=== PATIENT | male | born 1960 | race Hispanic/Latino ===

== ENCOUNTER 2017-11-20 15:46 | Inpatient (IN) | payer OTHER ==
[~2017-11-20] VITALS: Ht 170.2 cm; Wt 90.3 kg
[2017-11-20] MEDS ORDERED: ACETAMINOPHEN 325 MG TAB PO ONE (17:30)
[2017-11-20] MEDS ORDERED: SODIUM CHLORIDE 0.9% 1000ML 1,000 ML IV STA (17:34)
[2017-11-20 17:45] LABS: BASOPHILS # (AUTO) 0.1 (0.0-0.1); BASOPHILS % 0.8 % (0.0-1.0); EOSINOPHILS % 0.1 % (0.0-6.0); HEMATOCRIT 41.1 % (38.2-49.6); HEMOGLOBIN 14.8 g/dL (14.0-18.0); LYMPHOCYTES # (AUTO) 0.2 (1.0-3.2); LYMPHOCYTES % 1.5 % (18.0-39.1); MEAN CORPUSCULAR HEMOGLOBIN 33.3 pg (28-32); MEAN CORPUSCULAR VOLUME 92.4 fL (81-99); MONOCYTES # (AUTO) 1.2 (0.2-0.8); MONOCYTES % 7.8 % (4.4-11.3); NEUTROPHILS # (AUTO) 13.6 (2.1-6.9); NEUTROPHILS % 87.9 % (38.7-80.0); PLATELET COUNT 120 x10e3/uL (140-360); RED BLOOD COUNT 4.45 x10e6/uL (4.3-5.7)
[2017-11-20 17:57] LABS: ALANINE AMINOTRANSFERASE 52 IU/L (0-55); ALBUMIN 2.7 g/dL (3.5-5.0); ALBUMIN/GLOBULIN RATIO 0.5 (0.8-2.0); ALKALINE PHOSPHATASE 153 IU/L (40-150); ANION GAP 14.9 mmol/L (8-16); BLOOD UREA NITROGEN 10 mg/dL (7-26); BUN/CREATININE RATIO 14 (6-25); CALCIUM 8.8 mg/dL (8.4-10.2); CARBON DIOXIDE 22 mmol/L (22-29); CHLORIDE 95 mmol/L (98-107); EST GLOMERULAR FILTRATION RATE > 60 ML/MIN (60-); GLUCOSE 189 mg/dL (74-118); SODIUM 129 mmol/L (136-145)
[2017-11-20] MEDS ORDERED: PIPER-TAZ 3.375 GM 50 ML IV STA (17:59)
[2017-11-20] MEDS ORDERED: DIATRIZOATE MEGL/DIATRIZOA SOD 120 ML BTL PO ONE (18:03)
[2017-11-20 18:05] LABS: POTASSIUM 2.9 mmol/L (3.5-5.1)
[2017-11-20] MEDS ORDERED: POTASSIUM CHLORIDE 20 MEQ TAB CR PO STA (18:08)
[2017-11-20] MEDS ORDERED: KCL 20MEQ/.9 SOD CHL 1,000 ML IV ONE (18:30)
[2017-11-20 18:45] LABS: LYMPHOCYTES % (MANUAL) 4 % (19-48); METAMYELOCYTES % (MANUAL) 5 % (0-0); MONOCYTES % (MANUAL) 11 % (3.4-9.0); NEUTROPHILS % (MANUAL) 80 % (40-74); PLATELET ESTIMATE SLIGHTLY DECREASED; PLATELET MORPHOLOGY COMMENT FEW LARGE; RBC MORPHOLOGY COMMENT NORMAL
[2017-11-20] MEDS ORDERED: [UNRECOGNIZED DRUG - OTHER] OS (19:22)
[2017-11-20] MEDS ORDERED: METFORMIN HCL500 MG PO ×2 (19:29)
[2017-11-20] MEDS ORDERED: BENAZEPRIL HCL10 MG PO (19:29)
[2017-11-20] MEDS ORDERED: LOVASTATIN40 MG PO (19:29)
[2017-11-20] MEDS ORDERED: ESIDRIX25 MG PO (19:29)
[2017-11-20] MEDS ORDERED: OMEPRAZOLE40 MG PO (19:29)
[2017-11-20] MEDS ORDERED: GLIPIZIDE ER5 MG PO (19:29)
[2017-11-20] MEDS ORDERED: FERROUS SULFAT325 MG PO (19:29)
[2017-11-20] MEDS ORDERED: ASPIR 8181 MG PO (19:29)
--- NOTE | 2017-11-20 20:45 | Diagnostic Imaging Report ---
EXAM: CT Abdomen and Pelvis WITH contrast INDICATION: Lower abdominal pain and fever COMPARISON: None. TECHNIQUE: Abdomen and pelvis were scanned utilizing a multidetector helical scanner from the lung base to the pubic symphysis after administration of IV contrast. Coronal and sagittal reformations were obtained. Routine protocol was performed. Scan was performed when during portal venous phase. IV CONTRAST: 100 mL of Isovue-300 ORAL CONTRAST: Gastrografin RADIATION DOSE: Total DLP: 87.9 mGy*cm Estimated effective dose: (DLP x 0.015 x size factor) mSv COMPLICATIONS: None FINDINGS: LINES and TUBES: None. LOWER THORAX: Minimal atelectasis in the right lower lobe. Calcified granuloma in the right middle lobe. Coronary artery calcifications. HEPATOBILIARY: No focal hepatic lesions. No biliary ductal dilation. GALLBLADDER: Multiple 2 to 3 mm calcified gallstones. There is mild wall thickening near the gallbladder neck. No surrounding fluid collections. SPLEEN: No splenomegaly. PANCREAS: No focal masses or ductal dilatation. ADRENALS: No adrenal nodules KIDNEYS/URETERS: Kidneys enhance symmetrically. No hydronephrosis. No cystic or solid mass lesions. No stones. GI TRACT: There is mild wall thickening of the pylorus and first/second portion of the duodenum adjacent to the gallbladder, better seen on series 2, images 40-43. There is also diffuse wall thickening with adjacent fat stranding of the ascending colon and few loops of small bowel within the right upper quadrant. To a lesser extent, there is some wall thickening of the remaining colon. The terminal ileum is associated with nodular thickening. The appendix appears unremarkable though is not well visualized. No bowel dilatation. PELVIC ORGANS/BLADDER: Unremarkable. LYMPH NODES: No lymphadenopathy. VESSELS: Unremarkable. PERITONEUM / RETROPERITONEUM: No free air or fluid. Mild fat stranding within the gastrohepatic mesenteric fat. BONES: Mild multilevel degenerative changes of the lumbar spine. SOFT TISSUES: Small fat-containing bilateral inguinal hernias. IMPRESSION: CT findings suggestive of acute pancolitis, which may be inflammatory due to Crohn's disease or infectious. Cholelithiasis with mild inflammatory changes of the gallbladder wall adjacent to the colon may be reactive. No free air in the abdomen or pelvis. Signed by: Dr. Irish Herrera M.D. on 11/20/2017 8:41 PM
[2017-11-20] MEDS ORDERED: METRONIDAZOLE 500MG/NS 100ML 100 ML IV STA (21:45)
[2017-11-20] MEDS ORDERED: CIPROFLOXACIN 400 MG/D5W 200ML 200 ML IV ONE (22:00)
[2017-11-20] MEDS ORDERED: ONDANSETRON HCL INJ 2 MG/ML VIAL IV PRN (22:15)
[2017-11-20] MEDS ORDERED: MORPHINE SULFATE 2 MG/ML SYR IV PRN (22:15)
[2017-11-20] MEDS ORDERED: IOPAMIDOL 370 MG/ML 200 ML INFUS..BTL INJ ONE (22:34)
[2017-11-20] MEDS ORDERED: SODIUM CHLORIDE 0.9% 50ML 50 ML ONE (22:34)
[2017-11-20] MEDS: SODIUM CHLORIDE 0.9% 1000ML 1,000 ML IV SCH (23:47)
[2017-11-21] MEDS ORDERED: METRONIDAZOLE 500MG/NS 100ML IV SCH
[2017-11-21] MEDS ORDERED: DEXTROSE 50% SYRINGE 50 ML IV PRN (00:45)
[2017-11-21] MEDS: PIPER-TAZ 3.375 GM 50 ML IV SCH ×3 (06:00→22:00)
[2017-11-21] MEDS ORDERED: PIPER-TAZ 3.375 GM/50 ML BAG IV SCH (06:00)
[2017-11-21] MEDS: METRONIDAZOLE 500MG/NS 100ML 100 ML IV SCH ×4 (06:12→23:59)
[2017-11-21 06:44] LABS: BASOPHILS % 0.2 % (0.0-1.0); EOSINOPHILS % 0.2 % (0.0-6.0); HEMOGLOBIN 12.9 g/dL (14.0-18.0); LYMPHOCYTES # (AUTO) 0.7 (1.0-3.2); LYMPHOCYTES % 7.1 % (18.0-39.1); MEAN CORPUSCULAR HEMOGLOBIN 33.4 pg (28-32); MEAN CORPUSCULAR HGB CONC 34.9 g/dL (31-35); MEAN CORPUSCULAR VOLUME 95.9 fL (81-99); MONOCYTES # (AUTO) 0.8 (0.2-0.8); NEUTROPHILS # (AUTO) 8.3 (2.1-6.9); NEUTROPHILS % 83.4 % (38.7-80.0); PLATELET COUNT 107 x10e3/uL (140-360); RED BLOOD COUNT 3.86 x10e6/uL (4.3-5.7); RED CELL DISTRIBUTION WIDTH 14.5 % (11.7-14.4)
[2017-11-21 07:01] LABS: ALANINE AMINOTRANSFERASE 40 IU/L (0-55); ALBUMIN 2.2 g/dL (3.5-5.0); ALBUMIN/GLOBULIN RATIO 0.5 (0.8-2.0); ALKALINE PHOSPHATASE 104 IU/L (40-150); ANION GAP 12.2 mmol/L (8-16); BLOOD UREA NITROGEN 8 mg/dL (7-26); BUN/CREATININE RATIO 12 (6-25); CALCIUM 8.2 mg/dL (8.4-10.2); CARBON DIOXIDE 24 mmol/L (22-29); CHLORIDE 103 mmol/L (98-107); CREATININE, SERUM 0.69 mg/dL (0.72-1.25); EST GLOMERULAR FILTRATION RATE > 60 ML/MIN (60-); GLUCOSE 164 mg/dL (74-118); POTASSIUM 3.2 mmol/L (3.5-5.1); SODIUM 136 mmol/L (136-145)
[2017-11-21] MEDS: INSULIN REGULAR, HUMAN 100 UNIT/1 ML 3ML VIAL SQ SCH ×4 (07:39→21:00)
[2017-11-21] MEDS: SODIUM CHLORIDE 0.9% 1000ML 1,000 ML IV SCH ×3 (07:39→22:10)
--- NOTE | 2017-11-21 08:32 | History and Physical ---
PRIMARY CARE PHYSICIAN: None CHIEF COMPLAINT: Lower abdominal pain. HISTORY OF PRESENT ILLNESS: This is a 56-year-old man with a history of diabetes mellitus, developing lower abdominal pain, which he has also experienced years ago, but now his symptoms persisted. He initially thought it was food poisoning, but did not get better. Also, had nausea and vomiting, but no diarrhea. Has been anorexic for the past 2 days and not eating. Unable to eat due to symptoms. Therefore, he came to the hospital. His temperature at home was as high as 102 Fahrenheit. Here, he was found to be in severe sepsis and found to have acute pancolitis. He is admitted for further evaluation and management. He has had 2 polyps removed from the rectum in the past 2 years. PAST MEDICAL HISTORY: Diabetes mellitus, type 2, hypertension and GERD. PAST SURGICAL HISTORY: Colonic polyps and gastric polyp removal, umbilical hernia repair. ALLERGIES: PER ELECTRONIC MEDICAL RECORDS. FAMILY HISTORY/SOCIAL HISTORY: Patient is . He has 2 children. Occasional alcohol. No cigarettes. MEDICATIONS: Per electronic medical records. REVIEW OF SYSTEMS: Denies any dizziness or chest pain. PHYSICAL EXAMINATION VITAL SIGNS: Have been reviewed. GENERAL: A tired-appearing man resting in bed. HEENT: Anicteric. Pupils respond to light. No oral lesions. CARDIOVASCULAR: Normal S1 and S2. LUNGS: Moderate breath sounds. ABDOMEN: Soft and nondistended. He has tenderness in the lower quadrants bilaterally. EXTREMITIES: No edema. SKIN: Dry. PSYCHIATRIC: Flat affect. LABS: Reviewed. MEDICATIONS: Reviewed. ASSESSMENT AND PLAN: This is a 56-year-old man with: 1. Severe sepsis: Rehydrate. Intravenous fluids and antibiotics. 2. Acute pancolitis: Will get gastroenterology services on board for evaluation. In the meantime, will also treat him with antibiotics and intravenous steroids q.12 h. Will also obtain a P-ANCA and attempt to obtain ASCA, anti-saccharomyces cerevisiae antibody. 3. Hyponatremia: Rehydrate the patient. 4. Hypokalemia, severe: Replace and recheck. 5. Diabetes mellitus, type 2: Will get hemoglobin A1c and lipid panel. 6. Transaminitis: Likely related to his current disease state. Will recheck and if it is still elevated, will get a hepatitis panel. 7. Lactic acidosis related to his severe sepsis. 8. Thrombocytopenia likely related to severe sepsis: Will avoid anticoagulants and will use sequential compression devices and reassess. 9. Cholelithiasis which is asymptomatic at this time: This can be followed up outpatient. 10. Disposition: Monitor closely. Job#: [id number] ANKITA
[2017-11-21] MEDS: SIMVASTATIN 20 MG TAB PO SCH (09:20)
[2017-11-21] MEDS: METHYLPREDNISOLONE SOD SUCC 40 MG/ML VIAL IV SCH ×2 (09:20→21:00)
[2017-11-21] MEDS: FAMOTIDINE 20 MG/2 ML VIAL IV SCH ×2 (09:20→18:38)
[2017-11-21] MEDS: FERROUS SULFATE 325 MG TAB PO SCH (09:20)
[2017-11-21 18:35] VITALS: BP 140/84
[2017-11-21] MEDS: [UNRECOGNIZED DRUG - OTHER] OP SCH ×2 (18:50→21:00)
[2017-11-21 19:30] VITALS: BP 131/88
[2017-11-21 20:49] VITALS: BP 131/88
[2017-11-21] MEDS ORDERED: MORPHINE SULFATE 5 MG/ML VIAL IV PRN (21:45)
[2017-11-22] MEDS ORDERED: PEG (High)/E-LYTE SOLN 4,000 ML BTL PO ONE (00:45)
[2017-11-22 01:19] VITALS: BP 116/72
[2017-11-22] MEDS: METRONIDAZOLE 500MG/NS 100ML 100 ML IV SCH ×3 (05:13→18:37)
[2017-11-22] MEDS: PIPER-TAZ 3.375 GM 50 ML IV SCH ×3 (05:55→21:02)
[2017-11-22 06:43] VITALS: BP 139/71
[2017-11-22] MEDS: [UNRECOGNIZED DRUG - OTHER] OP SCH ×4 (09:00→21:01)
[2017-11-22] MEDS: SODIUM CHLORIDE 0.9% 1000ML 1,000 ML IV SCH ×2 (09:19→14:01)
[2017-11-22] MEDS: FAMOTIDINE 20 MG/2 ML VIAL IV SCH ×2 (09:54→17:00)
[2017-11-22] MEDS: METHYLPREDNISOLONE SOD SUCC 40 MG/ML VIAL IV SCH ×2 (09:54→21:01)
[2017-11-22] MEDS: FERROUS SULFATE 325 MG TAB PO SCH (09:55)
[2017-11-22] MEDS: SIMVASTATIN 20 MG TAB PO SCH (09:55)
[2017-11-22] MEDS: INSULIN REGULAR, HUMAN 100 UNIT/1 ML 3ML VIAL SQ SCH ×4 (09:55→21:01)
[2017-11-22 11:00] VITALS: BP 127/90
[2017-11-22 14:20] VITALS: BP 127/90
[2017-11-22] MEDS ORDERED: MIDAZOLAM HCL 2 MG/2 ML VIAL ONE (14:41)
[2017-11-22] MEDS ORDERED: FENTANYL CITRATE/PF 100MCG/2 ML INJ ONE (14:41)
[2017-11-22 17:15] LABS: WBC,FECAL (FECAL LACTOFERRIN) NEGATIVE (NEGATIVE)
[2017-11-22] MEDS ORDERED: LIDOCAINE HCL 2% LOCAL INJ 5 ML SDV VIAL INJ ONE (18:06)
[2017-11-22] MEDS ORDERED: PROPOFOL IV EMULSION 10 MG/ML 50 ML VIAL ONE (18:06)
[2017-11-22] MEDS ORDERED: HYOSCYAMINE SULFATE 0.5 MG/ML AMP ONE (18:06)
[2017-11-22 20:16] VITALS: BP 131/79
--- NOTE | 2017-11-22 21:47 | Operative Report ---
DATE OF PROCEDURE: November 22, 2017 REFERRING PHYSICIAN: Dr. Toshia Moreau PROCEDURE PERFORMED: Colonoscopy with polypectomy and biopsies. INDICATIONS FOR COLONOSCOPY: Lower abdominal pain, colitis on CT scan. MEDICATION: Patient was done under MAC. Please see anesthesiologist's note. PROCEDURE: With the patient in the left lateral decubitus position, the flexible fiberoptic Olympus colonoscope was inserted into the rectum with ease and advanced all the way to the cecum. Two polyps were hot biopsied from the cecum. The ileocecal valve was intubated, and the scope was advanced into the terminal ileum. Biopsies were obtained. Scope was then withdrawn back into the colon. One polyp at the junction of the cecum and the ascending colon was hot biopsied, and the polypectomy site was also hemoclipped. The rest of the ascending grossly appeared to be within normal limits. Two polyps were snared and 1 polyp was hot biopsied from the transverse colon. Diverticular disease was noted to be scattered throughout, but it was more pronounced in the sigmoid colon. There were some patchy erythema and low-grade to moderate edema noted in the left colon, and random biopsies were obtained. Two polyps was snared and 1 polyp was hot biopsied from the sigmoid colon. The rectum grossly appeared to be within normal limits. The scope was then retroflexed into the distal rectum, and large internal hemorrhoids were noted, none of which was actively bleeding. The scope was then straightened out. The rectosigmoid area as well as the distal rectal area were decompressed. Scope was subsequently withdrawn. Patient tolerated the procedure well. IMPRESSION 1. Cecal polyps, hot biopsied times 2. 2. Polyp at junction of the cecum and ascending colon hot biopsied, and polypectomy site was hemoclipped. 3. Transverse colon polyps times 4, two snared and two hot biopsied. 4. Diverticulosis, more pronounced in the sigmoid colon. 5. Sigmoid colon polyps times 3, two snared and one hot biopsied. 6. Mild, patchy, left-sided colitis. 7. Large internal hemorrhoids, none actively bleeding. PLAN: Follow up histology. Initiate GI soft diet. Patient will need a followup colonoscopy in 1 to 2 years. A total of 9 polyps were removed. Job#: [id number] cc:TOSHIA MOREAU MD
[2017-11-23] VITALS (7 sets, daily range): BP systolic 137–148; BP diastolic 65–97
[2017-11-23] MEDS: METRONIDAZOLE 500MG/NS 100ML 100 ML IV SCH ×5 (00:08→23:36)
[2017-11-23] MEDS: SODIUM CHLORIDE 0.9% 1000ML 1,000 ML IV SCH ×4 (00:08→23:14)
[2017-11-23] MEDS: PIPER-TAZ 3.375 GM 50 ML IV SCH ×3 (06:07→21:32)
[2017-11-23] MEDS: METFORMIN HCL 500 MG TAB PO SCH (08:30)
[2017-11-23] MEDS: [UNRECOGNIZED DRUG - OTHER] OP SCH ×4 (08:30→21:00)
[2017-11-23] MEDS: FERROUS SULFATE 325 MG TAB PO SCH (08:30)
[2017-11-23] MEDS: FAMOTIDINE 20 MG/2 ML VIAL IV SCH ×2 (08:30→17:14)
[2017-11-23] MEDS: METHYLPREDNISOLONE SOD SUCC 40 MG/ML VIAL IV SCH ×2 (08:30→21:31)
[2017-11-23] MEDS: SIMVASTATIN 20 MG TAB PO SCH (08:30)
[2017-11-23] MEDS: INSULIN REGULAR, HUMAN 100 UNIT/1 ML 3ML VIAL SQ SCH ×4 (08:31→21:27)
--- NOTE | 2017-11-23 09:37 | Progress Note ---
DATE: November 23, 2017 TIME: 6:49 a.m. OVERNIGHT: No events. REVIEW OF SYSTEMS: Denies any dizziness or chest pain. Had colonoscopy performed. VITAL SIGNS: Reviewed. PHYSICAL EXAMINATION GENERAL: A tired-appearing man resting in bed. HEENT: Anicteric. CARDIOVASCULAR: Normal S1 and S2. LUNGS: Moderate breath sounds. ABDOMEN: Soft and nondistended. Tenderness has improved. EXTREMITIES: No edema. SKIN: Dry. PSYCHIATRIC: Normal affect. LABS: Reviewed. MEDICATIONS: Reviewed. ASSESSMENT AND PLAN: A 56-year-old man. 1. Severe sepsis. 2. Acute pancolitis. 3. Hyponatremia. 4. Hypokalemia. 5. Diabetes mellitus, type 2. 6. Thrombocytopenia. 7. Cholelithiasis. 8. Gram-negative alvaro bacteremia. PLAN 1. Follow up endoscopy results. 2. Continue IV Zosyn, IV Flagyl, and IV Solu-Medrol. 3. Bowel regimen per GI service. 4. Gram-negative alvaro bacteremia. Follow up speciation and sensitivity. 5. Obtain hemoglobin A1c and lipid panel and control glucose level. 6. Obtain labs this morning. Job#: [id number]
[2017-11-23 09:59] LABS: BASOPHILS % 0.2 % (0.0-1.0); HEMOGLOBIN 13.2 g/dL (14.0-18.0); LYMPHOCYTES # (AUTO) 0.5 (1.0-3.2); LYMPHOCYTES % 5.6 % (18.0-39.1); MEAN CORPUSCULAR HGB CONC 34.7 g/dL (31-35); MONOCYTES # (AUTO) 0.8 (0.2-0.8); MONOCYTES % 7.9 % (4.4-11.3); NEUTROPHILS # (AUTO) 8.1 (2.1-6.9); NEUTROPHILS % 84.6 % (38.7-80.0); PLATELET COUNT 125 x10e3/uL (140-360); RED CELL DISTRIBUTION WIDTH 14.1 % (11.7-14.4)
[2017-11-23 10:18] LABS: ANION GAP 10.6 mmol/L (8-16); BLOOD UREA NITROGEN 9 mg/dL (7-26); BUN/CREATININE RATIO 13 (6-25); CALCIUM 8.2 mg/dL (8.4-10.2); CARBON DIOXIDE 24 mmol/L (22-29); CHLORIDE 101 mmol/L (98-107); CREATININE, SERUM 0.67 mg/dL (0.72-1.25); EST GLOMERULAR FILTRATION RATE > 60 ML/MIN (60-); GLUCOSE 314 mg/dL (74-118); POTASSIUM 3.6 mmol/L (3.5-5.1); SODIUM 132 mmol/L (136-145)
[2017-11-23 12:40] LABS: BAND NEUTROPHILS % (MANUAL) 4 %; LYMPHOCYTES % (MANUAL) 7 % (19-48); MONOCYTES % (MANUAL) 2 % (3.4-9.0); NEUTROPHILS % (MANUAL) 87 % (40-74)
[2017-11-23 12:41] LABS: PLATELET ESTIMATE ADEQUATE; PLATELET MORPHOLOGY COMMENT NORMAL; RBC MORPHOLOGY COMMENT NORMAL
[2017-11-23 15:18] LABS: C DIFFICILE TOXIN A&B AMP PROB NEGATIVE (NEGATIVE)
[2017-11-24] VITALS: BP 161/93
[2017-11-24 04:00] VITALS: BP 139/83
[2017-11-24] MEDS: PIPER-TAZ 3.375 GM 50 ML IV SCH ×3 (05:13→20:52)
[2017-11-24] MEDS: METRONIDAZOLE 500MG/NS 100ML 100 ML IV SCH ×3 (05:13→17:41)
[2017-11-24] MEDS: SODIUM CHLORIDE 0.9% 1000ML 1,000 ML IV SCH ×3 (06:01→21:45)
[2017-11-24 08:00] VITALS: BP 118/71
[2017-11-24] MEDS: INSULIN REGULAR, HUMAN 100 UNIT/1 ML 3ML VIAL SQ SCH ×4 (08:00→21:30)
[2017-11-24] MEDS: FAMOTIDINE 20 MG/2 ML VIAL IV SCH ×2 (08:45→17:41)
[2017-11-24] MEDS: SIMVASTATIN 20 MG TAB PO SCH (08:46)
[2017-11-24] MEDS: [UNRECOGNIZED DRUG - OTHER] OP SCH ×4 (08:46→20:51)
[2017-11-24] MEDS: FERROUS SULFATE 325 MG TAB PO SCH (08:46)
[2017-11-24] MEDS: METFORMIN HCL 500 MG TAB PO SCH (08:46)
[2017-11-24] MEDS: METHYLPREDNISOLONE SOD SUCC 40 MG/ML VIAL IV SCH ×2 (08:46→20:50)
[2017-11-24 12:00] VITALS: BP_SYST 110; BP_SYST 146; BP_SYST 192; BP_DIAS 56; BP_DIAS 87; BP_DIAS 90
[2017-11-24 16:00] VITALS: BP 142/80
--- NOTE | 2017-11-24 18:40 | Progress Note ---
DATE: November 24, 2017 TIME: 6:11 p.m. OVERNIGHT: No events. REVIEW OF SYSTEMS: Denies any dizziness. Patient had a bowel movement and he is on a soft diet. PHYSICAL EXAMINATION VITAL SIGNS: Reviewed. GENERAL: A tired-appearing man resting in chair. HEENT: Anicteric. CARDIOVASCULAR: Normal S1 and S2. LUNGS: Moderate breath sounds. ABDOMEN: Soft, nontender and nondistended. EXTREMITIES: No edema. SKIN: Dry. PSYCHIATRIC: Normal affect. LABS: Reviewed. MEDICATIONS: Reviewed. ASSESSMENT: A 56-year-old man with: 1. Severe sepsis with bacteremia. 2. Bacteremia with Klebsiella. 3. Acute pancolitis. 4. Hyponatremia. 5. Hypokalemia. 6. Diabetes mellitus, type 2. 7. Thrombocytopenia. 8. Cholelithiasis. PLAN 1. Continue IV antibiotics. Complete 7 days of IV and then transition to oral. Will obtain repeat blood cultures now. If negative in 48 hours, will discharge the patient. 2. Continue GI diet. 3. Leukocytosis has resolved. No fever at this time. 4. Will obtain hemoglobin A1c and lipid panel. 5. Will continue IV Flagyl and IV Zosyn. 6. Reduce steroids to 20 mg q.12 h. and plan to discontinue steroids tomorrow. Job#: [id number] ANKITA
[2017-11-24 19:30] LABS: CHOL/HDL RATIO 5.9 (3.9-4.7)
[2017-11-24 20:00] VITALS: BP 160/88
[2017-11-25] VITALS (7 sets, daily range): BP systolic 132–144; BP diastolic 64–94
[2017-11-25] MEDS: METRONIDAZOLE 500MG/NS 100ML 100 ML IV SCH ×5 (00:35→23:27)
[2017-11-25] MEDS: SODIUM CHLORIDE 0.9% 1000ML 1,000 ML IV SCH ×3 (05:51→21:42)
[2017-11-25] MEDS: PIPER-TAZ 3.375 GM 50 ML IV SCH ×3 (05:51→21:34)
--- NOTE | 2017-11-25 06:53 | Diagnostic Imaging Report ---
EXAM: ABDOMEN-1VIEW (KUB) DATE: 11/25/2017 5:57 AM Time stamp on exam: 6:34 AM INDICATION: Distended abdomen COMPARISON: None FINDINGS: LINES/TUBES: None BOWEL PATTERN: No evidence for obstruction. SOFT TISSUES: No abnormal calcifications. No mass effect. LUNG BASES: Not included BONES: No acute findings. IMPRESSION: Nonobstructive bowel gas pattern noted Signed by: Dr. Mikie Herron M.D. on 11/25/2017 6:49 AM
[2017-11-25] MEDS: INSULIN REGULAR, HUMAN 100 UNIT/1 ML 3ML VIAL SQ SCH ×4 (08:00→21:15)
--- NOTE | 2017-11-25 08:02 | Progress Note ---
DATE: November 25, 2017 TIME: 7:03 a.m. OVERNIGHT: No events. REVIEW OF SYSTEMS: Denies any dizziness. PHYSICAL EXAMINATION VITAL SIGNS: Reviewed. GENERAL: A tired-appearing man resting in bed. HEENT: Anicteric. CARDIOVASCULAR: Normal S1 and S2. LUNGS: Moderate breath sounds. ABDOMEN: Soft and nontender. EXTREMITIES: No edema. SKIN: Dry. PSYCHIATRIC: Flat affect. LABS: Reviewed. MEDICATIONS: Reviewed. ASSESSMENT: A 56-year-old man with: 1. Severe sepsis with bacteremia. 2. Bacteremia with klebsiella. 3. Acute pancolitis. 4. Multi-polyp colonic disease. 5. Hyponatremia. 6. Hypokalemia. 7. Diabetes mellitus, type 2. 8. Cholelithiasis. 9. Diverticulosis. 10. Large internal hemorrhoids without bleeding. PLAN 1. Continue IV antibiotics. 2. Follow up biopsy reports on the polyps. 3. Repeat blood cultures done yesterday. Will follow up results tomorrow at 48 hours. If negative, can be discharged home after 7 days of IV antibiotics. Recommendation is 7 days of oral antibiotics. 4. Reduce steroids further today. 5. Hemoglobin A1c 7.5. LDL is 108 and triglycerides 99. 6. C. diff testing and influenza were negative. 7. Follow hematologic studies. 8. Abdominal x-ray this morning shows no intestinal bowel gas pattern. Job#: [id number] [place]
[2017-11-25] MEDS: METHYLPREDNISOLONE SOD SUCC 40 MG/ML VIAL IV SCH ×2 (08:04→21:34)
[2017-11-25] MEDS: FAMOTIDINE 20 MG/2 ML VIAL IV SCH ×2 (08:04→16:39)
[2017-11-25] MEDS: [UNRECOGNIZED DRUG - OTHER] OP SCH ×4 (08:04→21:00)
[2017-11-25] MEDS: FERROUS SULFATE 325 MG TAB PO SCH (08:04)
[2017-11-25] MEDS: METFORMIN HCL 500 MG TAB PO SCH (08:04)
[2017-11-25] MEDS: SIMVASTATIN 20 MG TAB PO SCH (08:04)
--- NOTE | 2017-11-25 08:07 | Progress Note ---
DATE: November 22, 2017 TIME: 8:30 a.m. OVERNIGHT: No events. REVIEW OF SYSTEMS: Denies any dizziness. PHYSICAL EXAMINATION VITAL SIGNS: Reviewed. GENERAL: A tired-appearing man resting in bed. HEENT: Anicteric. CARDIOVASCULAR: Normal S1 and S2. LUNGS: Moderate breath sounds. ABDOMEN: Soft, nontender, and nondistended. EXTREMITIES: No edema. SKIN: Dry. PSYCHIATRIC: Normal affect. LABS: Reviewed. MEDICATIONS: Reviewed. ASSESSMENT: A 56-year-old man with 1. Severe sepsis. 2. Acute pancolitis. 3. Hyponatremia. 4. Hypokalemia. 5. Diabetes mellitus type 2. 6. Thrombocytopenia. 9. Cholelithiasis. 10. Gram-negative alvaro bacteremia. PLAN 1. Continue IV antibiotics. 2. Continue with Solu-Medrol. 3. GI service. 4. Follow up hemoglobin A1c and lipid panel. Job#: [id number]
[2017-11-26] VITALS: BP 139/96
[2017-11-26 04:00] VITALS: BP 136/90
[2017-11-26] MEDS: PIPER-TAZ 3.375 GM 50 ML IV SCH ×2 (05:20→14:35)
[2017-11-26] MEDS: SODIUM CHLORIDE 0.9% 1000ML 1,000 ML IV SCH ×2 (05:20→11:18)
[2017-11-26] MEDS: METRONIDAZOLE 500MG/NS 100ML 100 ML IV SCH ×2 (06:00→11:19)
[2017-11-26 07:41] LABS: BASOPHILS % 0.1 % (0.0-1.0); HEMATOCRIT 37.2 % (38.2-49.6); HEMOGLOBIN 12.9 g/dL (14.0-18.0); LYMPHOCYTES # (AUTO) 0.8 (1.0-3.2); MEAN CORPUSCULAR HEMOGLOBIN 32.8 pg (28-32); MEAN CORPUSCULAR HGB CONC 34.7 g/dL (31-35); MEAN CORPUSCULAR VOLUME 94.7 fL (81-99); MONOCYTES # (AUTO) 1.1 (0.2-0.8); MONOCYTES % 9.8 % (4.4-11.3); NEUTROPHILS # (AUTO) 9.1 (2.1-6.9); PLATELET COUNT 125 x10e3/uL (140-360); RED BLOOD COUNT 3.93 x10e6/uL (4.3-5.7); RED CELL DISTRIBUTION WIDTH 14.4 % (11.7-14.4)
[2017-11-26 07:45] VITALS: BP 140/89
[2017-11-26 07:58] LABS: ANION GAP 9.3 mmol/L (8-16); BLOOD UREA NITROGEN 11 mg/dL (7-26); BUN/CREATININE RATIO 16 (6-25); CALCIUM 8.1 mg/dL (8.4-10.2); CARBON DIOXIDE 27 mmol/L (22-29); CHLORIDE 101 mmol/L (98-107); EST GLOMERULAR FILTRATION RATE > 60 ML/MIN (60-); GLUCOSE 253 mg/dL (74-118); POTASSIUM 4.3 mmol/L (3.5-5.1); SODIUM 133 mmol/L (136-145)
[2017-11-26 08:36] VITALS: BP 140/89
[2017-11-26] MEDS: METFORMIN HCL 500 MG TAB PO SCH (08:53)
[2017-11-26] MEDS: INSULIN REGULAR, HUMAN 100 UNIT/1 ML 3ML VIAL SQ SCH ×2 (08:53→12:14)
[2017-11-26] MEDS: METHYLPREDNISOLONE SOD SUCC 40 MG/ML VIAL IV SCH (08:53)
[2017-11-26] MEDS: SIMVASTATIN 20 MG TAB PO SCH (08:53)
[2017-11-26] MEDS: FAMOTIDINE 20 MG/2 ML VIAL IV SCH (08:53)
[2017-11-26] MEDS: FERROUS SULFATE 325 MG TAB PO SCH (08:53)
[2017-11-26] MEDS: [UNRECOGNIZED DRUG - OTHER] OP SCH ×2 (08:53→12:14)
[2017-11-26 11:00] VITALS: BP 149/93
[2017-11-26 15:59] VITALS: BP 131/90
[2017-11-26] MEDS ORDERED: KEFLEX500 MG PO (16:04)
[2017-11-26] MEDS ORDERED: PREDNISONE20 MG PO (16:04)
--- NOTE | 2017-11-26 16:34 | Discharge Summary ---
PRINCIPAL DIAGNOSES 1. Severe sepsis. 2. Acute pancolitis. 3. Klebsiella bacteremia. 4. Multi-polyp colonic disease. 5. Hyponatremia. 6. Hypokalemia. 7. Diabetes mellitus type 2. Hemoglobin A1c 7.5, LDL 108, triglycerides 99. 8. Cholelithiasis. 9. Diverticulosis. 10. Large internal hemorrhoids without bleeding. SECONDARY DIAGNOSIS: Diabetes mellitus type 2. CHIEF COMPLAINT: Abdominal pain. HISTORY: A 56-year-old man with abdominal pain. Please refer to the history and physical for further details. HOSPITAL COURSE: He had severe sepsis secondary to bacteremia with Klebsiella. He received IV antibiotics for 7 days and going home on oral antibiotics. Keflex for 7 more days. He had acute pancolitis. He had multi-polyp colonic disease on endoscopy, hyponatremia and hypokalemia. He had diabetes mellitus type 2. He also had large internal hemorrhoids without bleeding. Diverticulosis and cholelithiasis were also noted. The patient needs to follow up for a polypectomy results with Dr. Gonzalez. DISCHARGE MEDICATIONS: Per electronic medical records. FOLLOWUP INSTRUCTIONS: Follow up with primary care physician in one week and follow up with Dr. Gonzalez in 2 weeks. CONDITION ON DISCHARGE: Stable and improving. DISCHARGE LOCATION: Home on prednisone and Keflex. TOSHIA MOREAU MD Job#: [id number]
[2017-11-27] MEDS ORDERED: METFORMIN HCL 500 MG TAB PO SCH (08:00)
[2017-11-27] MEDS ORDERED: SIMVASTATIN 40 MG TAB PO SCH (21:00)
== END 2017-11-26 18:22 | disposition home or self-care (01) | DRG 872 ==
LOC: ER 15:46 → ERHOLD 22:32 → MED/SURG2 11-21 17:25
PROVIDERS: ADMIT Internal Medicine; ATTEND Internal Medicine
PROC: 0DBK8ZX Excision of Ascending Colon, Via Natural or Artificial Opening Endoscopic, Diagnostic (ICD-10-PCS; 2017-11-22)
PROC: 0DBH8ZX Excision of Cecum, Via Natural or Artificial Opening Endoscopic, Diagnostic (ICD-10-PCS; principal; 2017-11-22 16:00)
PROC: 0DBG8ZX Excision of Left Large Intestine, Via Natural or Artificial Opening Endoscopic, Diagnostic (ICD-10-PCS; 2017-11-22 16:00)
PROC: 0DBN8ZX Excision of Sigmoid Colon, Via Natural or Artificial Opening Endoscopic, Diagnostic (ICD-10-PCS; 2017-11-22 16:00)
PROC: 0DBL8ZX Excision of Transverse Colon, Via Natural or Artificial Opening Endoscopic, Diagnostic (ICD-10-PCS; 2017-11-22 16:00)
DX: A41.89 Other specified sepsis (principal); E87.2 Acidosis; D69.3 Immune thrombocytopenic purpura; E87.1 Hypo-osmolality and hyponatremia; R65.20 Severe sepsis without septic shock; K52.89 Other specified noninfective gastroenteritis and colitis; D12.0 Benign neoplasm of cecum; D12.2 Benign neoplasm of ascending colon; D12.3 Benign neoplasm of transverse colon; D12.5 Benign neoplasm of sigmoid colon; K57.90 Diverticulosis of intestine, part unspecified, without perforation or abscess without bleeding; K64.8 Other hemorrhoids; E87.6 Hypokalemia; K80.20 Calculus of gallbladder without cholecystitis without obstruction; E11.9 Type 2 diabetes mellitus without complications; K21.9 Gastro-esophageal reflux disease without esophagitis; B96.1 Klebsiella pneumoniae [K. pneumoniae] as the cause of diseases classified elsewhere; Z79.4 Long term (current) use of insulin
CPT/HCPCS: 36415; 44391; 45380; 45384; 45385; 74000; 74177; 80048; 80053; 80061; 82948; 83036; 83605; 83630; 83993; 85025; 86021; 87040; 87045; 87071; 87086; 87177; 87186; 87205; 87328; 87400; 87493; 88305; 96372; 99285; J1980; J2001; J2250; J2543; J2920; J7030; Q9963; Q9967

== ENCOUNTER 2018-05-18 12:16 | Emergency (ER) | payer OTHER ==
[~2018-05-18] VITALS: Ht 170.2 cm; Wt 85.7 kg
[~2018-05-18 12:16] MED LIST: ASPIR 8181 MG PO; BENAZEPRIL HCL10 MG PO; ESIDRIX25 MG PO; FERROUS SULFAT325 MG PO; GLIPIZIDE ER5 MG PO; KEFLEX500 MG PO; LOVASTATIN40 MG PO; METFORMIN HCL500 MG PO; OMEPRAZOLE40 MG PO; PREDNISONE20 MG PO; [UNRECOGNIZED DRUG - OTHER] OS
[2018-05-18] MEDS ORDERED: METOPROLOL TARTRATE 50 MG TAB PO ONE (14:00)
[2018-05-18] MEDS ORDERED: LORATADINE10 MG PO (14:02)
[2018-05-18] MEDS ORDERED: BENAZEPRIL-HCT1 EAC2 PEG (14:02)
[2018-05-18] MEDS ORDERED: OMEPRAZOLE20 MG PO (14:02)
[2018-05-18] MEDS ORDERED: ASPIR 8181 MG PO (14:02)
[2018-05-18] MEDS ORDERED: METOPROLOL SUCC50 MG PO (14:38)
[2018-05-18 14:50] VITALS: BP 141/78
== END 2018-05-18 14:53 | disposition home or self-care (01) ==
LOC: FSED 12:16
DX: R00.0 Tachycardia, unspecified (principal); I10 Essential (primary) hypertension; E78.5 Hyperlipidemia, unspecified; K70.30 Alcoholic cirrhosis of liver without ascites; E11.9 Type 2 diabetes mellitus without complications; Z87.891 Personal history of nicotine dependence
CPT/HCPCS: 71046; 80053; 81003; 82553; 83880; 84484; 85025; 93005; 99284

== ENCOUNTER 2018-08-25 18:59 | Emergency (ER) | payer OTHER ==
[~2018-08-25] VITALS: Ht 170.2 cm; Wt 76.7 kg
[~2018-08-25 18:59] MED LIST changes: +BENAZEPRIL-HCT1 EAC2 PO; +LORATADINE10 MG PO; +METOPROLOL SUCC50 MG PO; +OMEPRAZOLE20 MG PO
--- OUTSIDE RECORDS SUMMARY | 2018-08-25 19:02 | XMS REPORT | Clinical Summary ---
Author Author [facility] Address Unknown Phone Unavailable Care Team Providers Care Foreign Food Specialty Cook Name Role Phone PCP Unavailable Allergies No Known Allergies Current Medications Prescription Sig. Disp. Refills Start End Date Status Date metFORMIN (GLUCOPHAGE) Take 500 mg by mouth 2 Active 500 MG tablet (two) times daily with breakfast and dinner. benazepril-hydrochlorthia Take 1 tablet by mouth Active zide (LOTENSIN HCT) daily. 20-12.5 mg per tablet glipiZIDE (GLUCOTROL) 5 Take 5 mg by mouth daily. Active MG tablet lovastatin (MEVACOR) 40 Take 40 mg by mouth Active MG tablet daily. omeprazole (PRILOSEC) 20 Take 20 mg by mouth as Active MG capsule needed. loratadine (CLARITIN) 10 Take 10 mg by mouth Active mg tablet daily. aspirin 81 MG EC tablet Take 81 mg by mouth Active daily. ferrous sulfate 325 (65 Take 325 mg by mouth Active FE) MG tablet daily with breakfast. Active Problems No known active problems Encounters Date Type Specialty Care Team Description 05/18/2018 Hospital Calli Figueroa, Encounter 05/18/2018 Anesthesia Geovanna Larios, Kecia ALVARADO 05/18/2018 Procedure Pass 05/18/2018 Surgery Calli Figueroa, EXCISION,LESION CONJUNCTIVRashad 05/15/2018 Hospital Pre-Admission Testing Encounter after 08/24/2017 Social History Tobacco Use Types Packs/Day Years Used Date Former Smoker Quit: 05/15/1990 Smokeless Tobacco: Never Used Alcohol Use Drinks/Week oz/Week Comments Yes 14 Shots of 8.4 daily liquor Sex Assigned at Date Recorded Not on file Last Filed Vital Signs Vital Sign Reading Time Taken Blood Pressure 151/78 05/18/2018 11:26 AM CDT Pulse 115 05/18/2018 11:26 AM CDT Temperature 37.1 C (98.7 F) 05/18/2018 11:26 AM CDT Respiratory Rate 18 05/18/2018 11:26 AM CDT Oxygen Saturation 96% 05/18/2018 11:26 AM CDT Inhaled Oxygen - - Concentration Weight 85.7 kg (189 lb) 05/15/2018 9:00 AM CDT Height 170.2 cm (5' 7") 05/15/2018 9:00 AM CDT Body Mass Index 29.6 05/15/2018 9:00 AM CDT Plan of Treatment Not on file Implants Implanted Type Area Court Officer Device Expiration Model / Identifier Date Serial / Lot Tissue Memb Amniogrft 2.5x2.0 Ophthalmol Left: Eye BIO-TISSUE 01/21/2020 [id number] / [id number] - [id number] Implanted: Qty: 1 on 05/18/2018 by [id number] / Calli Figueroa MD Procedures Procedure Name Priority Date/Time Associated Diagnosis Comments RECONSTRUCTION,OCULAR 05/18/2018 Neoplasm of unspecified AMNIOTIC MEMBRANE 8:02 AM CDT behavior of other TRANSPLANT specified sites EXCISION,LESION 05/18/2018 Neoplasm of unspecified CONJUNCTIVA 8:02 AM CDT behavior of other specified sites after 08/24/2017 Results * POC-Glucose meter (05/18/2018 11:03 AM) Only the most recent of 3 results within the time period is included. Component Value Ref Range POC-Glucose Meter 79Comment: TESTED AT [facility] [address] 70 - 110 mg/dL B [facility] [id number] Specimen Performing Laboratory Blood [facility] [address] [address] after 08/24/2017
--- OUTSIDE RECORDS SUMMARY | 2018-08-25 19:02 | XMS REPORT | Clinical Summary ---
Author Author [facility] Address Unknown Phone Unavailable Care Team Providers Care Subassembly Supervisor Name Role Phone PCP Unavailable Allergies Not on File Current Medications Not on file Active Problems Not on file Encounters Date Type Specialty Care Team Description 04/23/2018 Lab Lab System, Provider Not In, Canceled (Scheduling MD Error) after 08/24/2017 Social History Tobacco Use Types Packs/Day Years Used Date Never Assessed Sex Assigned at Date Recorded Not on file Last Filed Vital Signs Not on file Plan of Treatment Health Maintenance Due Date Last Done Comments COLON CANCER SCREENING 2011 SHINGRIX VACCINE (#1) 2011 INFLUENZA VACCINE 06/10/2018 08/27/2017 Results Not on fileafter 08/24/2017
[2018-08-25] MEDS ORDERED: ONDANSETRON HCL INJ 2 MG/ML VIAL IV STA (19:05)
[2018-08-25] MEDS ORDERED: IBUPROFEN 600 MG TAB PO STA (19:05)
[2018-08-25 19:20] LABS: BASOPHILS % 0.3 % (0.0-1.0); EOSINOPHILS % 0.1 % (0.0-6.0); HEMATOCRIT 36.3 % (38.2-49.6); HEMOGLOBIN 12.8 g/dL (14.0-18.0); LYMPHOCYTES # (AUTO) 0.9 (1.0-3.2); LYMPHOCYTES % 7.7 % (18.0-39.1); MEAN CORPUSCULAR HEMOGLOBIN 37.5 pg (28-32); MEAN CORPUSCULAR HGB CONC 35.3 g/dL (31-35); MEAN CORPUSCULAR VOLUME 106.5 fL (81-99); MONOCYTES % 9.2 % (4.4-11.3); NEUTROPHILS # (AUTO) 9.2 (2.1-6.9); NEUTROPHILS % 82.1 % (38.7-80.0); PLATELET COUNT 70 x10e3/uL (140-360); RED BLOOD COUNT 3.41 x10e6/uL (4.3-5.7); RED CELL DISTRIBUTION WIDTH 14.3 % (11.7-14.4)
[2018-08-25 19:33] LABS: ALANINE AMINOTRANSFERASE 47 IU/L (0-55); ALBUMIN 2.3 g/dL (3.5-5.0); ALBUMIN/GLOBULIN RATIO 0.4 (0.8-2.0); ALKALINE PHOSPHATASE 134 IU/L (40-150); AMYLASE 34 U/L (25-125); ANION GAP 19.8 mmol/L (8-16); BLOOD UREA NITROGEN 11 mg/dL (7-26); BUN/CREATININE RATIO 14 (6-25); CARBON DIOXIDE 22 mmol/L (22-29); CHLORIDE 97 mmol/L (98-107); CREATINE KINASE 119 IU/L (30-200); CREATININE, SERUM 0.78 mg/dL (0.72-1.25); EST GLOMERULAR FILTRATION RATE > 60 ML/MIN (60-); GLUCOSE 189 mg/dL (74-118); LIPASE 34 U/L (8-78); POTASSIUM 3.8 mmol/L (3.5-5.1); SODIUM 135 mmol/L (136-145)
[2018-08-25 19:42] LABS: BILIRUBIN,URINE 3+ (NEGATIVE); CLARITY,URINE SL CLOUDY (CLEAR); COLOR,URINE ORANGE (YELLOW); KETONES,URINE TRACE (NEGATIVE); LEUKOCYTE ESTERASE ,URINE TRACE (NEGATIVE); NITRITE,URINE POSITIVE (NEGATIVE); PROTEIN,URINE DIPSTICK 2+ (NEGATIVE); URINE UROBILINOGEN 4 mg/dL (0.2 - 1)
[2018-08-25 20:00] LABS: BACTERIA,URINE FEW /HPF; EPITHELIAL CELLS,URINE FEW /LPF
[2018-08-25 20:01] LABS: MUCUS,URINE MODERATE (RARE)
[2018-08-25] MEDS ORDERED: [UNRECOGNIZED DRUG - OTHER] TOP (20:23)
[2018-08-25] MEDS ORDERED: MAXITROL EYE O3.5 GM OS (20:23)
[2018-08-25] MEDS ORDERED: IOPAMIDOL 370 MG/ML 200 ML INFUS..BTL INJ ONE (20:41)
[2018-08-25] MEDS ORDERED: SODIUM CHLORIDE 0.9% 100 ML 100 ML ONE (20:41)
--- NOTE | 2018-08-25 21:00 | Diagnostic Imaging Report ---
EXAM: CT Abdomen and Pelvis WITH contrast INDICATION: Right lower quadrant pain, loss of appetite, nausea vomiting ^abd pain ^Y COMPARISON: CT 11/20/2017 TECHNIQUE: Abdomen and pelvis were scanned utilizing a multidetector helical scanner from the lung base to the pubic symphysis after administration of IV contrast. Coronal and sagittal reformations were obtained. Routine protocol was performed. Scan was performed when during portal venous phase. IV CONTRAST: 100 mL of Isovue-370 ORAL CONTRAST: Water COMPLICATIONS: None RADIATION DOSE: Total DLP: 720.8 mGy*cm Estimated effective dose: (DLP x 0.015 x size factor) mSv CTDIvol has been reviewed. It is below the limits set by the Radiation Protocol Committee (RPC). Dose modulation, iterative reconstruction, and/or weight based adjustment of the mA/kV was utilized to reduce the radiation dose to as low as reasonably achievable. FINDINGS: LINES and TUBES: None. LOWER THORAX: Stable lingular 2 mm nodule (series 2 image 10). Partially visualized right middle lobe calcified granuloma on the first image slice and in the lateral segment. Lingular and bilateral lobe atelectasis or scarring. HEPATOBILIARY: Nodular liver contour compatible with cirrhosis. Numerous tiny hypodensities throughout the liver likely secondary to cirrhosis. Limited evaluation for arterially enhancing lesions in the absence of arterial phase. No biliary ductal dilation. GALLBLADDER: Numerous gallstones within the contracted gallbladder. No wall thickening. SPLEEN: Spleen is enlarged measuring 14 cm in length. PANCREAS: No focal masses or ductal dilatation. ADRENALS: Stable left adrenal 0.9 cm nodule (sagittal image 96). KIDNEYS/URETERS: Kidneys enhance symmetrically. No hydronephrosis. Right renal 2 cm cyst in the interpolar region. Additional smaller hypodensities are too small to characterize but likely represent cysts. Nonobstructing punctate left inferior pole calculus. GI TRACT: Small hiatal hernia. Ascending colonic, transverse colonic, and ileal circumferential wall thickening which may be secondary to portal colopathy/enteropathy. No abnormal distention or evidence of bowel obstruction. PELVIC ORGANS/BLADDER: Bladder is collapsed, limiting evaluation. LYMPH NODES: No lymphadenopathy. VESSELS: Recanalized umbilical vein and abdominal wall varices. Enlarged portal vein measuring 1.6 cm in diameter. The portal, splenic, and superior mesenteric veins are patent. Mild scattered atherosclerotic calcifications. No abdominal aortic aneurysm. PERITONEUM / RETROPERITONEUM: Mild amount of ascites. No free air. BONES: There are degenerative changes in the lumbar spine. SOFT TISSUES: Fat-containing bilateral inguinal hernias. Ascites within the right inguinal canal. IMPRESSION: 1. Cirrhosis with sequela of portal hypertension including splenomegaly, recanalized umbilical vein and caput medusa, and mild ascites. 2. Colonic and small bowel wall thickening, likely related to portal hypertension. 3. Cholelithiasis with contracted gallbladder. 4. Left adrenal 0.9 cm nodule, indeterminate. 5. Left nephrolithiasis. Signed by: DR. Lucius Beverly MD on 08/25/2018 8:56 PM
[2018-08-25 21:33] VITALS: BP 130/80
[2018-08-25] MEDS ORDERED: CIPRO500 MG PO (21:33)
[2018-08-25] MEDS ORDERED: ULTRAM 50MG50 MG PO (21:33)
[2018-08-25] MEDS ORDERED: ZOFRAN ODT4 MG SL (21:33)
[2018-08-25] MEDS ORDERED: FLAGYL250 MG PO (21:33)
[2018-08-25] MEDS ORDERED: MORPHINE SULFATE 2 MG/ML SYR IV STA (21:42)
== END 2018-08-25 22:24 | disposition home or self-care (01) ==
LOC: ER 18:59
DX: R10.30 Lower abdominal pain, unspecified (principal); R11.2 Nausea with vomiting, unspecified; R19.7 Diarrhea, unspecified; I10 Essential (primary) hypertension; E11.9 Type 2 diabetes mellitus without complications; K76.9 Liver disease, unspecified
CPT/HCPCS: 36415; 74177; 80053; 81001; 82150; 82550; 82553; 83690; 84484; 85025; 96374; 99284; J2270; J2405; Q9967

== ENCOUNTER 2018-10-21 15:21 | Inpatient (IN) | payer OTHER ==
[~2018-10-21] VITALS: Ht 170.2 cm; Wt 78.2 kg
[~2018-10-21 15:21] MED LIST changes: +CIPRO500 MG PO; +FLAGYL250 MG PO; +MAXITROL EYE O3.5 GM OS; +ULTRAM 50MG50 MG PO; +ZOFRAN ODT4 MG SL; +[UNRECOGNIZED DRUG - OTHER] TOP
--- OUTSIDE RECORDS SUMMARY | 2018-10-21 15:24 | XMS REPORT | Clinical Summary ---
Author Author [facility] Address Unknown Phone Unavailable Care Team Providers Care Setter [employer] Name Role Phone PCP Unavailable Allergies Not on File Medications Not on file Active Problems Not on file Encounters Care Team Description Date Type Specialty System, Provider Not In, Canceled (Scheduling Error) 04/23/2018 Lab Lab after 10/20/2017 Social History Date Tobacco Use Types Packs/Day Years Used Never Assessed Sex Assigned at Date Recorded Not on file Industry Job Start Date Occupation Not on file Not on file Not on file Travel End Travel History Travel Start No recent travel history available. Last Filed Vital Signs Not on file Plan of Treatment Health Maintenance Due Date Last Done Comments COLON CANCER SCREENING 2011 SHINGRIX VACCINE (1 of 2) 2011 INFLUENZA VACCINE 06/10/2018 08/27/2017 HEPATITIS B VACCINES Aged Out No longer eligible based on patient's age to complete this topic IPV VACCINES Aged Out No longer eligible based on patient's age to complete this topic MENINGOCOCCAL VACCINE Aged Out No longer eligible based on patient's age to complete this topic Results Not on fileafter 10/20/2017 Advance Directives Patient has advance care planning documents on file. For more information, saturnino grene contact: Darryl Pearson [address] [place] [address]
--- OUTSIDE RECORDS SUMMARY | 2018-10-21 15:25 | XMS REPORT | Continuity of Care Document ---
Author Author [facility] Interface Address Unknown Phone Unavailable Problems Problem Status Onset Date Classification Date Reported Comments Source OTHER Active 10/05/2018 [facility] ACUTE ABDOMINAL PAIN, ASCITES, SIRS (SYS Active 09/29/2018 [facility] ABDOMINAL EXTENDED/SHORTNESS OF BREATH Active 09/29/2018 [facility] Colitis, acute Active Problem 05/18/2018 [facility] Hypokalemia Active Problem 05/18/2018 [facility] Hyponatremia Active Problem 05/18/2018 [facility] UNSPECIFIED ABDOMINAL PAIN Active [facility] OTHER ASCITES Active [facility] SIRS OF NON-INFECTIOUS ORIGIN W/O ACUTE Active [facility] Medications Medication Details Route Status Patient Instructions Ordering Provider Order Date Source Metoprolol Succinate 50 Mg Tab.er.24h Daily Active Duchamp 05/18/2018 [facility] Benazepril Hcl 10 Mg Tablet, 20 Mg Oral Daily Active 05/18/2018 [facility] Hydrochlorothiazide (Esidrix*) 25 Mg Tab, 12.5 Mg Oral Daily Active 05/18/2018 [facility] Interferon Pf Opth , 1 Drp Left Eye Four Times Daily Active 05/18/2018 [facility] Metformin Hcl 500 Mg Tablet, 1000 Mg Oral Every Morning Active 05/18/2018 [facility] Omeprazole 40 Mg Capsule., 40 Mg Oral Daily Active 05/18/2018 [facility] Aspirin (Aspir 81) 81 Mg Tablet., 81 Mg Oral Daily Active 11/26/2017 [facility] Cephalexin Monohydrate (Keflex) 500 Mg Capsule, 500 Mg Oral Every 12 Hours Active Juanito 11/26/2017 [facility] Prednisone 20 Mg Tab, 20 Mg Oral Daily Active Juanito 11/26/2017 [facility] Aspirin (Aspir 81) 81 Mg Tablet. Daily Active [facility] Benazepril/Hydrochlorothiazide (Benazepril-Hctz 20-12.5 Mg Tab) 1 Each Tablet Daily Active [facility] Ferrous Sulfate 325 Mg Tablet Daily Active [facility] Glipizide (Glipizide Er) 5 Mg Tab.er.24 Daily Active [facility] Loratadine 10 Mg Tablet Daily Active [facility] Lovastatin 40 Mg Tablet Daily Active THERAPEUTICALLY SUBSTITUTED WITH SIMVASTATIN 20MG [facility] Metformin Hcl 500 Mg Tablet Twice A Day Active [facility] Omeprazole 20 Mg Capsule. Daily as needed for Indigestion [facility] Allergies, Adverse Reactions, Alerts Substance Category Reaction Severity Reaction type Status Date Reported Comments Source Immunizations Immunization Date Given Site Status Last Updated Comments Source Results Order Name Results Value Reference Range Date Interpretation Comments Source Abdomen/Pelvis wo IV contrast CT Abdomen/Pelvis wo IV contrast CT Clinical Indication: Abdominal pain. Comparison: CT the abdomen and pelvis 09/29/2018. TECHNIQUE: Helical imaging was performed without injection of IV contrast, from the diaphragm through the symphysis with multiplanar reformations obtained. IV CONTRAST: No IV contrast was administered. GI CONTRAST: No oral contrast was administered. CT imaging performed at this location utilizes radiation dose optimization techniques which include one or more of the following: -Automated exposure control -Adjustment of the mA and/or kV according to patient size -Use of iterative reconstruction technique CT Radiation Dose DLP 1381.61 mGy-cm FINDINGS: LOWER CHEST: There is a 7 mm calcified granuloma within the right middle lobe. Atelectasis versus scarring is seen at the lung bases. Coronary artery calcifications are seen. LIVER: Again seen is an irregular nodular contour of the liver. Multiple upper abdominal varices are seen. BILIARY TREE: There is no significant biliary ductal dilatation. GALLBLADDER: Multiple gallstones are seen within the gallbladder. PANCREAS: The pancreas is unremarkable. The pancreatic duct is normal in caliber. SPLEEN: The spleen is normal in size and there are no parenchymal abnormalities. ADRENALS: The right adrenal gland is unremarkable. The left adrenal gland is unremarkable. KIDNEYS: There is a stable 4 mm stone within the right proximal ureter. No significant hydronephrosis or hydroureter is seen. Again seen is a 1.8 cm exophytic cyst within the midpole right kidney. BOWEL: There is a small hiatal hernia. No evidence of bowel obstruction is seen. A moderate amount of fecal material is noted throughout the colon. There is colonic diverticulosis without evidence of diverticulitis. There is mild intramural fat along the cecum. APPENDIX: Again seen is a thickened and irregular appendix measuring up to 2.1 cm. Intramural fat is seen along the alvarado of the appendix (axial series 2, images 96-112). PELVIS: There is mild urinary bladder wall thickening. The prostate gland is enlarged and measures 6.1 cm in transverse diameter. PERITONEUM: A moderate amount of free fluid is noted within the abdomen and pelvis. SOFT TISSUES: There are fat-containing inguinal hernias bilaterally. Fluid is seen within the right inguinal hernia. LYMPH NODES: There are small bilateral inguinal, mesenteric and retroperitoneal lymph nodes, which are most likely reactive in etiology. VASCULATURE: Atherosclerotic calcifications are seen of the nonaneurysmal abdominal aorta and branching vessels. MUSCULOSKELETAL: There are degenerative changes within the visualized spine, sacroiliac joints and hips. IMPRESSION: 1. Again seen 4 mm stone within the right proximal ureter without significant hydronephrosis. 2. Mild urinary bladder wall thickening, which may be due to cystitis or underdistention. Consider correlation with urinalysis. 3. Again seen hepatic cirrhosis with evidence of portal hypertension. 4. Cholelithiasis. 5. Chronic irregular appearance of the appendix with intramural fat and wall thickening. Also intramural fat along the cecum. Findings may be due to chronic inflammatory changes. 6. Colonic diverticulosis without evidence of diverticulitis. SL: KPATEL-M 10/05/2018 - - Read by: Mathew Gonzalez MD Dictated Date/time: 10/06/18 01:07 Electronically Signed by: Mathew Gonzalez MD 10/06/18 01:22 FINAL REPORT [facility] Paracentesis w ultrasound guide VR Paracentesis w ultrasound guide VR PROCEDURE: Ultrasound guided paracentesis. INDICATION: ascites - for ascites. COMPARISON: CT abdomen/pelvis with IV contrast from 09/29/2018. PROCEDURE: The procedure, risks, benefits and alternatives were discussed. Informed consent was obtained. Timeout was performed prior to the procedure. Ultrasound was used to evaluate potential access sites. The right lower abdomen was sterilely prepped and draped. 1% lidocaine was used for local anesthesia. A 5-Polish sheathed needle was advanced into the peritoneal space using trocar technique. Ascites was aspirated through the sheath after removal of the needle. Upon completion of the procedure, the sheath was removed. Pressure was applied at the puncture site with adequate hemostasis. Sterile dressing was applied. There were no evident complications and the patient had no complaints. FINDINGS: Total volume of 6.4 liters of clear yellow ascites was removed. IMPRESSION: 1. Technically successful ultrasound guided paracentesis. 10/02/2018 - - Read by: Fermin Peck DO Dictated Date/time: 10/02/18 09:47 Electronically Signed by: Fermin Peck DO 10/02/18 09:48 FINAL REPORT [facility] Abdomen/Pelvis IV contrast only CT ED Abdomen/Pelvis IV contrast only CT Clinical Indication: - LAP. Abdominal distention, weakness, shortness of breath. History of cirrhosis. Recent colitis. Comparison: None TECHNIQUE: Helical imaging was performed from the diaphragm through the symphysis with multiplanar reformations obtained. IV CONTRAST: 100 mL Omnipaque 300 GI CONTRAST: None CT imaging performed at this location utilizes radiation dose optimization techniques which include one or more of the following: -Automated exposure control -Adjustment of the mA and/or kV according to patient size -Use of iterative reconstruction technique CT Radiation Dose DLP 1531 mGy-cm FINDINGS: LUNG BASES: There is basilar atelectasis. HEPATOBILIARY: There is a nodular surface contour of the liver. Evaluation for underlying hepatocellular carcinoma is limited on this venous phase exam. There is suggestion of a subtle 1.4 cm hypodense lesion in the right lobe (601, 68) There are gallstones without CT evidence of acute inflammation. SPLEEN: The spleen measures 15.5 cm. PANCREAS: The pancreas enhances normally. ADRENAL GLANDS: The adrenal glands are normal. KIDNEYS: A 4 mm calculus is present at the right ureteropelvic junction without hydronephrosis or delayed enhancement of the right kidney. There is nonobstructing left nephrolithiasis. There is a right renal cortical cyst and bilateral too small to characterize right renal cortical hypodensities. BOWEL: There is a small sliding hiatal hernia. The bowel is normal in caliber. The appendix is not seen. The colon has a normal CT appearance. RETROPERITONEUM/PERITONEUM: There is a moderate volume of ascites. No free air. LYMPH NODES: No adenopathy. VASCULATURE: Atheromatous changes are present within the aorta without aneurysm. The IVC is unremarkable. The main portal vein measures 18 mm in diameter. There is a recanalized periumbilical vein. There are gastroesophageal varices. There are internal hemorrhoids. PELVIS: The bladder is poorly distended which limits evaluation. There are bilateral inguinal hernias. There is ascitic fluid extending into the right inguinal hernia. MUSCULOSKELETAL: Degenerative changes are present in the thoracolumbar spine. IMPRESSION: 1. Stone at the right ureteropelvic junction without significant hydronephrosis. Correlate with urinalysis. 2. Cirrhotic liver with changes of portal hypertension including splenomegaly, portosystemic collaterals and ascites 3. Questionable small hypodense lesion within the right lobe of the liver. This is poorly evaluated on this venous phase exam. Recommend correlating with AFP levels and follow-up CT or magnetic resonance imaging of the abdomen without and with contrast, liver protocol if there are no outside prior exams for comparison. This can be performed after resolution of patient's acute illness. 4. Cholelithiasis 5. Bilateral inguinal hernias. SL: ECROBERT 09/29/2018 - - Read by: Ruthy Delgado MD Dictated Date/time: 09/29/18 21:34 Electronically Signed by: Ruthy Delgado MD 09/29/18 21:44 FINAL REPORT [facility] Capillary blood glucose measurement by glucometer (mass/volume) Capillary blood glucose measurement by glucometer (mass/volume) 243 70 - 120 11/26/2017 [facility] Automated blood basophil count (count/volume) Automated blood basophil count (count/volume) 0.0 0.0 - 0.1 11/26/2017 [facility] Automated blood basophil count as percentage of total leukocytes Automated blood basophil count as percentage of total leukocytes 0.1 0.0 - 1.0 11/26/2017 [facility] Automated blood eosinophil count Automated blood eosinophil count 0.0 0.0 - 0.4 11/26/2017 [facility] Automated blood eosinophil count as percentage of total leukocytes Automated blood eosinophil count as percentage of total leukocytes 0.0 0.0 - 6.0 11/26/2017 [facility] Automated blood hematocrit (volume fraction) Automated blood hematocrit (volume fraction) 37.2 38.2 - 49.6 11/26/2017 [facility] Automated blood lymphocyte count as percentage ot total leukocytes Automated blood lymphocyte count as percentage ot total leukocytes 7.0 18.0 - 39.1 11/26/2017 [facility] Automated blood monocyte count as percentage of total leukocytes Automated blood monocyte count as percentage of total leukocytes 9.8 4.4 - 11.3 11/26/2017 [facility] Automated blood neutrophil count Automated blood neutrophil count 9.1 2.1 - 6.9 11/26/2017 [facility] Automated blood platelet count (count/volume) Automated blood platelet count (count/volume) 125 140 - 360 11/26/2017 [facility] Automated blood segmented neutrophil count as percentage of total leukocytes Automated blood segmented neutrophil count as percentage of total leukocytes 82.0 38.7 - 80.0 11/26/2017 [facility] Automated erythrocyte mean corpuscular hemoglobin (mass per erythrocyte) Automated erythrocyte mean corpuscular hemoglobin (mass per erythrocyte) 32.8 28 - 32 11/26/2017 [facility] Automated erythrocyte mean corpuscular hemoglobin concentration measurement (mass/volume) Automated erythrocyte mean corpuscular hemoglobin concentration measurement (mass/volume) 34.7 31 - 35 11/26/2017 [facility] Automated erythrocyte mean corpuscular volume Automated erythrocyte mean corpuscular volume 94.7 81 - 99 11/26/2017 [facility] Blood erythrocytes automated count (number/volume) Blood erythrocytes automated count (number/volume) 3.93 4.3 - 5.7 11/26/2017 [facility] Blood hemoglobin measurement (moles/volume) Blood hemoglobin measurement (moles/volume) 12.9 14.0 - 18.0 11/26/2017 [facility] Blood leukocytes automated count (number/volume) Blood leukocytes automated count (number/volume) 11.13 4.8 - 10.8 11/26/2017 [facility] Blood lymphocytes count (number/volume) Blood lymphocytes count (number/volume) 0.8 1.0 - 3.2 11/26/2017 [facility] Blood monocytes automated count (number/volume) Blood monocytes automated count (number/volume) 1.1 0.2 - 0.8 11/26/2017 [facility] Estimated glomerular filtration rate (GFR) determination Estimated glomerular filtration rate (GFR) determination null 60 11/26/2017 [facility] Glucose measurement Glucose measurement 253 74 - 118 11/26/2017 [facility] Serum or plasma anion gap Serum or plasma anion gap 9.3 8 - 16 11/26/2017 [facility] Serum or plasma calcium measurement (mass/volume) Serum or plasma calcium measurement (mass/volume) 8.1 8.4 - 10.2 11/26/2017 [facility] Serum or plasma carbon dioxide, total measurement (moles/volume) Serum or plasma carbon dioxide, total measurement (moles/volume) 27 22 - 29 11/26/2017 [facility] Serum or plasma chloride measurement (moles/volume) Serum or plasma chloride measurement (moles/volume) 101 98 - 107 11/26/2017 [facility] Serum or plasma creatinine measurement (mass/volume) Serum or plasma creatinine measurement (mass/volume) 0.70 0.72 - 1.25 11/26/2017 [facility] Serum or plasma potassium measurement (moles/volume) Serum or plasma potassium measurement (moles/volume) 4.3 3.5 - 5.1 11/26/2017 [facility] Serum or plasma sodium measurement (moles/volume) Serum or plasma sodium measurement (moles/volume) 133 136 - 145 11/26/2017 [facility] Serum or plasma urea nitrogen measurement (mass/volume) Serum or plasma urea nitrogen measurement (mass/volume) 11 7 - 26 11/26/2017 [facility] Serum or plasma urea nitrogen/creatinine mass ratio Serum or plasma urea nitrogen/creatinine mass ratio 16 6 - 25 11/26/2017 [facility] Red Cell Distribution Width 14.4 11.7 - 14.4 11/26/2017 [facility] IM GRANULOCYTES % 1.1 0.0 - 1.0 11/26/2017 [facility] Absolute Immature Granulocyte (auto 0.12 0 - 0.1 11/26/2017 [facility] Blood culture Blood culture NO GROWTH AFTER 5 DAYS, FINAL REPORT 11/24/2017 [facility] Serum or plasma cholesterol in HDL measurement (mass/volume) Serum or plasma cholesterol in HDL measurement (mass/volume) 26 40 - 60 11/24/2017 [facility] Serum or plasma cholesterol in LDL measurement (mass/volume) Serum or plasma cholesterol in LDL measurement (mass/volume) 108 60 - 130 11/24/2017 [facility] Serum or plasma cholesterol measurement (mass/volume) Serum or plasma cholesterol measurement (mass/volume) 154 0 - 199 11/24/2017 [facility] Serum or plasma total cholesterol/cholesterol in HDL mass ratio Serum or plasma total cholesterol/cholesterol in HDL mass ratio 5.9 3.9 - 4.7 11/24/2017 [facility] Serum or plasma triglyceride measurement (mass/volume) Serum or plasma triglyceride measurement (mass/volume) 99 0 - 149 11/24/2017 [facility] Hemoglobin A1c Percent 7.5 4.0 - 7.0 11/24/2017 [facility] Blood platelets count by estimate (number/volume) Blood platelets count by estimate (number/volume) ADEQUATE 11/23/2017 [facility] Manual blood band neutrophils form/100 leukocytes Manual blood band neutrophils form/100 leukocytes 4 11/23/2017 [facility] Manual blood lymphocytes/100 leukocytes Manual blood lymphocytes/100 leukocytes 7 19 - 48 11/23/2017 [facility] Manual blood monocytes/100 leukocytes Manual blood monocytes/100 leukocytes 2 3.4 - 9.0 11/23/2017 [facility] Manual blood neutrophils/100 leukocytes Manual blood neutrophils/100 leukocytes 87 40 - 74 11/23/2017 [facility] Platelet morphology Platelet morphology NORMAL 11/23/2017 [facility] RBC morphology RBC morphology NORMAL 11/23/2017 [facility] Differential Total Cells Counted 100 11/23/2017 [facility] Clostridium difficile A and B toxin assay Clostridium difficile A and B toxin assay NEGATIVE NEGATIVE 11/22/2017 [facility] Stool calprotectin measurement (mass/mass) Stool calprotectin measurement (mass/mass) null 0 - 120 11/22/2017 [facility] Stool lactoferrin detection Stool lactoferrin detection NEGATIVE NEGATIVE 11/22/2017 [facility] Cytoplasmic antineutrophil cytoplasmic antibody (c-ANCA) titer Cytoplasmic antineutrophil cytoplasmic antibody (c-ANCA) titer null Neg:<1:20 11/21/2017 [facility] Serum atypical perinuclear neutrophil cytoplasmic antibody titer by immunofluorescence Serum atypical perinuclear neutrophil cytoplasmic antibody titer by immunofluorescence null Neg:<1:20 11/21/2017 [facility] Serum perinuclear neutrophil cytoplasmic antibody titer by immunofluorescence Serum perinuclear neutrophil cytoplasmic antibody titer by immunofluorescence null Neg:<1:20 11/21/2017 [facility] Plasma globulin measurement (mass/volume) Plasma globulin measurement (mass/volume) 4.6 2.3 - 3.5 11/21/2017 [facility] Serum or plasma alanine aminotransferase measurement (enzymatic activity/volume) Serum or plasma alanine aminotransferase measurement (enzymatic activity/volume) 40 0 - 55 11/21/2017 [facility] Serum or plasma albumin measurement (mass/volume) Serum or plasma albumin measurement (mass/volume) 2.2 3.5 - 5.0 11/21/2017 [facility] Serum or plasma albumin/globulin mass ratio Serum or plasma albumin/globulin mass ratio 0.5 0.8 - 2.0 11/21/2017 [facility] Serum or plasma alkaline phosphatase measurement (enzymatic activity/volume) Serum or plasma alkaline phosphatase measurement (enzymatic activity/volume) 104 40 - 150 11/21/2017 [facility] Serum or plasma protein measurement (mass/volume) Serum or plasma protein measurement (mass/volume) 6.8 6.5 - 8.1 11/21/2017 [facility] Serum or plasma total bilirubin measurement (mass/volume) Serum or plasma total bilirubin measurement (mass/volume) 1.4 0.2 - 1.2 11/21/2017 [facility] Aspartate Amino Transf (AST/SGOT) 55 5 - 34 11/21/2017 [facility] Influenza virus A and B antigen identification by immunofluorescence Influenza virus A and B antigen identification by immunofluorescence NEGATIVE NEGATIVE 11/20/2017 [facility] Bacterial blood culture Bacterial blood culture Organism: KLEBSIELLA PNEUMONIAE 11/20/2017 [facility] Manual blood metamyelocytes/100 leukocytes Manual blood metamyelocytes/100 leukocytes 5 0 - 0 11/20/2017 [facility] Lactic Acid Level 20.0 4.5 - 19.8 11/20/2017 [facility] Vital Signs Vital Sign Value Date Comments Source Encounters Location Location Details Encounter Type Encounter Number Reason For Visit Attending Provider ADM Date DC Date Status Source Discharged Inpatient [id number] TOSHIA MOREAU MD 11/20/2017 11/26/2017 [facility] Departed Emergency Room [id number] SCOTTIE ARROYO MD 05/18/2018 05/18/2018 [facility] Procedures Procedure Code Date Perfomer Comments Source EXCISION OF CECUM, ENDO, DIAGN [id number] 11/22/2017 [facility] EXCISION OF LEFT LARGE INTESTINE, ENDO, DIAGN [id number] 11/22/2017 [facility] EXCISION OF SIGMOID COLON, ENDO, DIAGN [id number] 11/22/2017 [facility] EXCISION OF TRANSVERSE COLON, ENDO, DIAGN [id number] 11/22/2017 [facility] EXCISION OF ASCENDING COLON, ENDO, DIAGN [id number] 11/22/2017 [facility] Computed tomography of abdomen and pelvis with contrast [id number] 11/20/2017 ALMITA DYA [facility]
--- OUTSIDE RECORDS SUMMARY | 2018-10-21 15:25 | XMS REPORT | Clinical Summary ---
Author Author BARB [facility] Address Unknown Phone Unavailable Care Team Providers Care Supervisor Sample Preparation Name Role Phone Jose E Gallegos PCP Allergies No Known Allergies Medications End Date Status Medication Sig Dispensed Refills Start Date Active metFORMIN (GLUCOPHAGE) Take 500 mg 0 500 MG tablet by mouth 2 (two) times daily with breakfast and dinner. Active benazepril-hydrochlorthia Take 1 tablet 0 zide (LOTENSIN HCT) by mouth 20-12.5 mg per tablet daily. Active glipiZIDE (GLUCOTROL) 5 Take 5 mg by 0 MG tablet mouth daily. Active lovastatin (MEVACOR) 40 Take 40 mg by 0 MG tablet mouth daily. Active omeprazole (PRILOSEC) 20 Take 20 mg by 0 MG capsule mouth as needed. Active loratadine (CLARITIN) 10 Take 10 mg by 0 mg tablet mouth daily. Active aspirin 81 MG EC tablet Take 81 mg by 0 mouth daily. Active ferrous sulfate 325 (65 Take 325 mg 0 FE) MG tablet by mouth daily with breakfast. Active Problems No known active problems Encounters Care Team Description Date Type Specialty Geovanna Larios MD 05/18/2018 Anesthesia Event Calli Figueroa MD EXCISION,LESION CONJUNCTIVA 05/18/2018 Surgery Calli Figueroa MD 05/18/2018 Hospital Encounter 05/15/2018 Hospital Pre-Admission Testing Encounter after 10/20/2017 Social History Date Tobacco Use Types Packs/Day Years Used Quit: 05/15/1990 Former Smoker Smokeless Tobacco: Never Used Alcohol Use Drinks/Week oz/Week Comments Yes 14 Shots of 8.4 daily liquor Sex Assigned at Date Recorded Not on file Industry Job Start Date Occupation Not on file Not on file Not on file Travel End Travel History Travel Start No recent travel history available. Last Filed Vital Signs Time Taken Vital Sign Reading 05/18/2018 11:26 AM CDT Blood Pressure 151/78 05/18/2018 11:26 AM CDT Pulse 115 05/18/2018 11:26 AM CDT Temperature 37.1 C (98.7 F) 05/18/2018 11:26 AM CDT Respiratory Rate 18 05/18/2018 11:26 AM CDT Oxygen Saturation 96% - Inhaled Oxygen - Concentration 05/15/2018 9:00 AM CDT Weight 85.7 kg (189 lb) 05/15/2018 9:00 AM CDT Height 170.2 cm (5' 7") 05/15/2018 9:00 AM CDT Body Mass Index 29.6 Plan of Treatment Not on file Implants Device Identifier Shelf Expiration Date Model / Serial / Lot Implanted Type Area Manufactur er 01/21/2020 AG-2520F / [id number] / Tissue Memb Amniogrft 2.5x2.0 Ophthalmol Left: Eye BIO-TISSUE Ag-2520f - [id number] Implanted: Qty: 1 on 05/18/2018 by Calli Figueroa MD Procedures Comments Procedure Name Priority Date/Time Associated Diagnosis POCT-GLUCOSE METER Routine 05/18/2018 11:03 AM CDT POCT-GLUCOSE METER Routine 05/18/2018 10:17 AM CDT RECONSTRUCTION,OCULAR 05/18/2018 Neoplasm of unspecified AMNIOTIC MEMBRANE 8:02 AM CDT behavior of other TRANSPLANT specified sites EXCISION,LESION 05/18/2018 Neoplasm of unspecified CONJUNCTIVA 8:02 AM CDT behavior of other specified sites POCT-GLUCOSE METER Routine 05/18/2018 7:53 AM CDT after 10/20/2017 Results * POC-Glucose meter (05/18/2018 11:03 AM CDT) Only the most recent of 3 results within the time period is included. POC-Glucose Meter 79Comment: TESTED AT [facility] 70 - 110 mg/dL [facility] [address] [place] [address] Specimen Blood Performing Organization Address City/State/Zipcode Phone Number [facility] [address] [place] [address] [facility] after 10/20/2017 Insurance Payer Benefit Subscriber ID Type Phone Address Plan / Group [employer] xxxxxxxxxx MARKETPLAC E EXCHANGE
[2018-10-21 16:15] LABS: BASOPHILS % 0.6 % (0.0-1.0); EOSINOPHILS # (AUTO) 0.1 (0.0-0.4); EOSINOPHILS % 2.6 % (0.0-6.0); HEMATOCRIT 27.5 % (38.2-49.6); HEMOGLOBIN 9.2 g/dL (14.0-18.0); LYMPHOCYTES # (AUTO) 1.3 (1.0-3.2); LYMPHOCYTES % 24.1 % (18.0-39.1); MEAN CORPUSCULAR HEMOGLOBIN 35.9 pg (28-32); MEAN CORPUSCULAR HGB CONC 33.5 g/dL (31-35); MEAN CORPUSCULAR VOLUME 107.4 fL (81-99); MONOCYTES # (AUTO) 0.8 (0.2-0.8); MONOCYTES % 14.2 % (4.4-11.3); NEUTROPHILS # (AUTO) 3.1 (2.1-6.9); NEUTROPHILS % 58.1 % (38.7-80.0); PLATELET COUNT 80 x10e3/uL (140-360); RED BLOOD COUNT 2.56 x10e6/uL (4.3-5.7); RED CELL DISTRIBUTION WIDTH 14.6 % (11.7-14.4)
[2018-10-21 16:31] LABS: ALANINE AMINOTRANSFERASE 22 IU/L (0-55); ALBUMIN/GLOBULIN RATIO 0.4 (0.8-2.0); ALKALINE PHOSPHATASE 148 IU/L (40-150); ANION GAP 10.8 mmol/L (8-16); BLOOD UREA NITROGEN 11 mg/dL (7-26); BUN/CREATININE RATIO 16 (6-25); CALCIUM 8.7 mg/dL (8.4-10.2); CARBON DIOXIDE 23 mmol/L (22-29); CHLORIDE 105 mmol/L (98-107); CREATININE, SERUM 0.69 mg/dL (0.72-1.25); EST GLOMERULAR FILTRATION RATE > 60 ML/MIN (60-); GLUCOSE 134 mg/dL (74-118); MAGNESIUM 1.5 MG/DL (1.3-2.1); PHOSPHORUS 2.5 MG/DL (2.3-4.7); POTASSIUM 3.8 mmol/L (3.5-5.1); SODIUM 135 mmol/L (136-145)
[2018-10-21 16:32] LABS: INR 1.67; PARTIAL THROMBOPLASTIN TIME 40.6 seconds (23.8-35.5)
--- OUTSIDE RECORDS SUMMARY | 2018-10-21 16:33 | XMS REPORT | Clinical Summary ---
Author Author [facility] Address Unknown Phone Unavailable Care Team Providers Care Police Pilot Name Role Phone PCP Unavailable Allergies Not [...] documents on file. For more information, saturnino green contact: Darryl Pearson [address] [place] [address]
--- OUTSIDE RECORDS SUMMARY | 2018-10-21 16:34 | XMS REPORT | Clinical Summary ---
Author Author [facility] Address Unknown Phone Unavailable Care Team Providers Care Military Administrative Technician Name Role Phone Jose E Gallegos PCP [...] Type Area Manufactur er 01/21/2020 AG-2520F / [id number] / Tissue Memb Amniogrft 2.5x2.0 Ophthalmol Left: Eye BIO-TISSUE Ag-2520f - [id number] [id number] Implanted: Qty: 1 on 05/18/2018 by [...] is included. POC-Glucose Meter 79Comment: TESTED AT [facility] 70 - 110 mg/dL [facility] [address] [facility] [place] [address] Specimen Blood Performing Organization Address City/State/Zipcode Phone Number [id number] [address] [place] [address] [facility] after 10/20/2017 Insurance Payer Benefit Subscriber ID Type Phone Address Plan / Group [employer] xxxxxxxxxx MARKET[employer] E EXCHANGE
[2018-10-21] MEDS ORDERED: PANTOPRAZOLE INJ 80 MG in SODIUM CHLORIDE 0.9% 100 ML IV SCH (17:15)
[2018-10-21] MEDS ORDERED: PANTOPRAZOLE 40 MG 10ML VIAL IV ONE (17:15)
[2018-10-21] MEDS ORDERED: SODIUM CHLORIDE FLUSH 10 ML SYR INJ PRN (17:15)
[2018-10-21] MEDS ORDERED: CHLORDIAZEPOXIDE HCL 25 MG CAP PO PRN (17:15)
[2018-10-21] MEDS ORDERED: OCTREOTIDE ACETATE 500 MCG in SODIUM CHLORIDE 0.9% 500ML 1 ML IV SCH (17:15)
[2018-10-21] MEDS ORDERED: OCTREOTIDE ACETATE 0.05 MG/ML AMP IV ONE (17:15)
[2018-10-21] MEDS ORDERED: THIAMINE HCL INJ 100 MG/ML 2ML VIAL IV ONE (17:15)
--- NOTE | 2018-10-21 17:20 | NUR ---
RECTAL EXAM DONE BY DR. CARLISLE WITH MY ASSISTANCE. PT TOLERATED WELL. NO ACTIVE RECTAL BLEEDING NOTED. PT DID TEST POSITIVE FOR OCCULT BLOOD AT BEDSIDE PER DR. CARLISLE. PT AND FAMILY INFORMED OF THESE RESULTS. PT/DAUGHTERS AWARE HE WILL BE ADMITTED TO HOSPITAL FOR PARACENTESIS.
--- OUTSIDE RECORDS SUMMARY | 2018-10-21 17:26 | XMS REPORT | Clinical Summary ---
Author Author Darryl [facility] Organization [facility] Address Unknown Phone Unavailable Care Team Providers Care Police Surgeon Name Role Phone PCP Unavailable Allergies Not [...] more information, saturnino green contact: Darryl Pearson [address] [place] [address]
--- OUTSIDE RECORDS SUMMARY | 2018-10-21 17:26 | XMS REPORT | Clinical Summary ---
Author Author BARB [facility] Address Unknown Phone Unavailable Care Team Providers Care Lighting Specialist Name Role Phone Jose E Gallegos PCP [...] Type Area Manufactur er 01/21/2020 AG-2520F / [id number] / Tissue Memb Amniogrft 2.5x2.0 Ophthalmol Left: Eye BIO-TISSUE Ag-2520f - [id number] [id number] Implanted: Qty: 1 on 05/18/2018 by [...] is included. POC-Glucose Meter 79Comment: TESTED AT [facility] 70 - 110 mg/dL [facility] [address] [place] [address] Specimen Blood Performing Organization Address City/State/Zipcode Phone Number [facility] [address] [place] [address] [facility] after 10/20/2017 Insurance Payer Benefit Subscriber ID Type Phone Address Plan / Group [employer] xxxxxxxxxx MARKET[employer]AC E EXCHANGE
[2018-10-21] MEDS ORDERED: PROPRANOLOL HCL 10 MG TAB PO SCH (18:00)
[2018-10-21] MEDS ORDERED: OCTREOTIDE ACETATE 1 ML ONE (18:31)
[2018-10-21] MEDS: PANTOPRAZOL 40MG/SOD CHL 0.9% 50 ML IV SCH ×2 (18:40→21:46)
[2018-10-21] MEDS: OCTREOTIDE ACETATE 500 MCG in SODIUM CHLORIDE 0.9% 250ML 249 ML IV SCH (18:45)
--- NOTE | 2018-10-21 18:55 | NUR ---
MEDS GIVEN ORDERED. ROOM ASSIGNMENT GIVEN. PT/FAMILY AWARE PT GOING TO ROOM 207. WILL CALL REPORT AND TRANSPORT AFTER SHIFT CHANGE.
--- NOTE | 2018-10-21 19:13 | NUR ---
ATTEMPTED TO CALL REPORT BUT NURSE IS GETTING REPORT FROM DAY SHIFT NURSES ON FLOOR.
[2018-10-21] MEDS ORDERED: SPIRONOLACTONE25 MG PO (19:22)
[2018-10-21] MEDS ORDERED: LASIX20 MG PO (19:22)
--- NOTE | 2018-10-21 19:35 | NUR ---
REPORT GIVEN TO ELLA DELGADILLO ON MED-SURG. PT GOING TO ROOM 207 ON TELE.
--- NOTE | 2018-10-21 20:30 | NUR ---
Received patient from ER per stretcher, accompanied by ER staff and family members, alert, with IV access on both AC, hooked Protonix drip, and Sandostatin drip as ordered. Oriented to room, call light within reached, advised to call for assistance when needed. Patient verbalized understanding. No complaints of pain, patient is not in distress. Will continue to monitor closely
[2018-10-21 20:52] VITALS: BP 144/85
[2018-10-21 21:00] VITALS: BP 144/85
[2018-10-21 21:05] LABS: BASOPHILS # (AUTO) 0.1 (0.0-0.1); BASOPHILS % 0.9 % (0.0-1.0); EOSINOPHILS # (AUTO) 0.1 (0.0-0.4); EOSINOPHILS % 2.5 % (0.0-6.0); HEMATOCRIT 26.6 % (38.2-49.6); HEMOGLOBIN 9.1 g/dL (14.0-18.0); LYMPHOCYTES # (AUTO) 1.2 (1.0-3.2); LYMPHOCYTES % 21.1 % (18.0-39.1); MEAN CORPUSCULAR HEMOGLOBIN 36.7 pg (28-32); MEAN CORPUSCULAR HGB CONC 34.2 g/dL (31-35); MEAN CORPUSCULAR VOLUME 107.3 fL (81-99); MONOCYTES # (AUTO) 0.8 (0.2-0.8); MONOCYTES % 14.2 % (4.4-11.3); NEUTROPHILS # (AUTO) 3.4 (2.1-6.9); NEUTROPHILS % 61.1 % (38.7-80.0); PLATELET COUNT 69 x10e3/uL (140-360); RED BLOOD COUNT 2.48 x10e6/uL (4.3-5.7); RED CELL DISTRIBUTION WIDTH 14.6 % (11.7-14.4)
[2018-10-21] MEDS: PROPRANOLOL HCL 40 MG TAB PO SCH (21:45)
[2018-10-21] MEDS ORDERED: PHYTONADIONE 10 MG/ML AMP SQ ONE (22:30)
--- NOTE | 2018-10-21 22:30 | NUR ---
Spoke to Dr. Shari Gonzalez with orders to continue all home medications
--- NOTE | 2018-10-21 23:00 | NUR ---
Dr. Lynn Gonzalez seen patient with orders
[2018-10-21] MEDS: GUAIFENESIN 200 MG/10 ML UDC PO PRN (23:35)
[2018-10-22] VITALS (8 sets, daily range): BP systolic 94–111; BP diastolic 59–74
--- NOTE | 2018-10-22 | NUR ---
NPO post midnight, instructed to patient and family members
--- NOTE | 2018-10-22 01:30 | NUR ---
patient signed the consent for the procedure
[2018-10-22 02:12] LABS: BASOPHILS # (AUTO) 0.1 (0.0-0.1); BASOPHILS % 0.6 % (0.0-1.0); EOSINOPHILS # (AUTO) 0.1 (0.0-0.4); EOSINOPHILS % 1.3 % (0.0-6.0); HEMATOCRIT 25.8 % (38.2-49.6); LYMPHOCYTES # (AUTO) 0.8 (1.0-3.2); LYMPHOCYTES % 9.1 % (18.0-39.1); MEAN CORPUSCULAR HEMOGLOBIN 36.6 pg (28-32); MEAN CORPUSCULAR HGB CONC 34.9 g/dL (31-35); MEAN CORPUSCULAR VOLUME 104.9 fL (81-99); MONOCYTES % 11.8 % (4.4-11.3); NEUTROPHILS # (AUTO) 6.3 (2.1-6.9); NEUTROPHILS % 76.6 % (38.7-80.0); PLATELET COUNT 78 x10e3/uL (140-360); RED BLOOD COUNT 2.46 x10e6/uL (4.3-5.7); RED CELL DISTRIBUTION WIDTH 14.6 % (11.7-14.4)
[2018-10-22] MEDS: PANTOPRAZOL 40MG/SOD CHL 0.9% 50 ML IV SCH ×2 (03:04→10:00)
[2018-10-22] MEDS: OCTREOTIDE ACETATE 500 MCG in SODIUM CHLORIDE 0.9% 250ML 249 ML IV SCH ×2 (04:39→17:28)
--- NOTE | 2018-10-22 05:00 | NUR ---
Hibiclens bath done by PCT
[2018-10-22 05:01] LABS: BASOPHILS # (AUTO) 0.1 (0.0-0.1); BASOPHILS % 0.5 % (0.0-1.0); EOSINOPHILS # (AUTO) 0.2 (0.0-0.4); EOSINOPHILS % 1.7 % (0.0-6.0); HEMATOCRIT 26.9 % (38.2-49.6); HEMOGLOBIN 9.1 g/dL (14.0-18.0); LYMPHOCYTES % 10.1 % (18.0-39.1); MEAN CORPUSCULAR HEMOGLOBIN 36.1 pg (28-32); MEAN CORPUSCULAR HGB CONC 33.8 g/dL (31-35); MEAN CORPUSCULAR VOLUME 106.7 fL (81-99); MONOCYTES # (AUTO) 1.1 (0.2-0.8); NEUTROPHILS # (AUTO) 7.3 (2.1-6.9); NEUTROPHILS % 76.4 % (38.7-80.0); PLATELET COUNT 85 x10e3/uL (140-360); RED BLOOD COUNT 2.52 x10e6/uL (4.3-5.7); RED CELL DISTRIBUTION WIDTH 14.5 % (11.7-14.4)
[2018-10-22 05:23] LABS: ALANINE AMINOTRANSFERASE 23 IU/L (0-55); ALBUMIN 1.7 g/dL (3.5-5.0); ALBUMIN/GLOBULIN RATIO 0.4 (0.8-2.0); ALKALINE PHOSPHATASE 125 IU/L (40-150); ANION GAP 10.5 mmol/L (8-16); BLOOD UREA NITROGEN 9 mg/dL (7-26); BUN/CREATININE RATIO 14 (6-25); CARBON DIOXIDE 20 mmol/L (22-29); CHLORIDE 105 mmol/L (98-107); CREATININE, SERUM 0.65 mg/dL (0.72-1.25); EST GLOMERULAR FILTRATION RATE > 60 ML/MIN (60-); GLUCOSE 151 mg/dL (74-118); POTASSIUM 4.5 mmol/L (3.5-5.1); SODIUM 131 mmol/L (136-145)
[2018-10-22 05:24] LABS: % IRON SATURATION 88 % (15-50); IRON 95 ug/dL (65-175); TOTAL IRON BINDING CAPACITY 108 ug/dL (261-478); TRANSFERRIN 77 mg/dL (174-364)
--- NOTE | 2018-10-22 07:02 | NUR ---
Received patient mid fowlers position, side rails upx2, call light within reach, family at bedside. AAOX4 to time, person, place, situation. Respirations even and unlabored. Will continue to monitor.
[2018-10-22] MEDS: METFORMIN HCL 500 MG TAB PO SCH (08:00)
[2018-10-22] MEDS ORDERED: FUROSEMIDE 20 MG TAB PO SCH (09:00)
[2018-10-22] MEDS ORDERED: SPIRONOLACTONE 25 MG TAB PO SCH (09:00)
[2018-10-22] MEDS: PANTOPRAZOLE SOD 40 MG TABEC PO SCH (09:00)
[2018-10-22] MEDS ORDERED: PHYTONADIONE 10 MG/ML AMP SQ ONE (09:00)
[2018-10-22] MEDS: GLIPIZIDE 2.5 MG TABCR PO SCH (09:00)
[2018-10-22] MEDS: FOLIC ACID 1 MG TAB PO SCH (10:24)
[2018-10-22] MEDS: SIMVASTATIN 20 MG TAB PO SCH (10:24)
[2018-10-22] MEDS: HYDROCORTISONE 2.5% PR CRM 1 OZ TUBE TOP SCH ×3 (10:24→22:00)
[2018-10-22] MEDS: TRAMADOL HCL 50 MG TAB PO PRN ×2 (10:34→17:36)
--- NOTE | 2018-10-22 11:42 | NUR ---
, S aware of AM vitals. Per "no parameters on BP medications. Okay to take BP medications"
[2018-10-22] MEDS: METOPROLOL SUCCINATE 50 MG TAB XL PO SCH (12:15)
[2018-10-22 12:32] LABS: BASOPHILS # (AUTO) 0.1 (0.0-0.1); BASOPHILS % 0.6 % (0.0-1.0); EOSINOPHILS # (AUTO) 0.2 (0.0-0.4); EOSINOPHILS % 2.8 % (0.0-6.0); HEMATOCRIT 28.8 % (38.2-49.6); HEMOGLOBIN 9.6 g/dL (14.0-18.0); LYMPHOCYTES # (AUTO) 1.4 (1.0-3.2); LYMPHOCYTES % 16.6 % (18.0-39.1); MEAN CORPUSCULAR HEMOGLOBIN 35.8 pg (28-32); MEAN CORPUSCULAR HGB CONC 33.3 g/dL (31-35); MEAN CORPUSCULAR VOLUME 107.5 fL (81-99); MONOCYTES % 12.3 % (4.4-11.3); NEUTROPHILS # (AUTO) 5.7 (2.1-6.9); NEUTROPHILS % 67.3 % (38.7-80.0); PLATELET COUNT 96 x10e3/uL (140-360); RED BLOOD COUNT 2.68 x10e6/uL (4.3-5.7); RED CELL DISTRIBUTION WIDTH 14.7 % (11.7-14.4)
--- NOTE | 2018-10-22 13:13 | NUR ---
Open Hearth Laborer to bedside to discuss plan of care with patient/family. CM/SW role and care transitions discussed. Anticipated discharge plan discussed along with duration of care. CM/SW discussed patients right to make decisions in care. CM/SW work hours given. Patient lives: with , daughter, and son-in-law Admit/Transfer: thru ED, from home POA/Emergency contact: daughters Viry Mcelroy [phone] and Cristy Mcelroy [phone] Current/Previous Home Health: none PCP/Follow-up Care: Dr. 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 Name and number was also written on the patients whiteboard. Patient verbalized understanding of discussion. CM will follow-up with ongoing discharge and transition of care needs
--- NOTE | 2018-10-22 16:24 | Diagnostic Imaging Report ---
PROCEDURE:US GUIDED PARACENTESIS COMPARISON:None. INDICATIONS:Ascites FINDINGS: Informed consent was obtained and documented the medical record. The patient was placed in the supine position on the sonographic table. The right side of the abdomen was prepped and draped in standard sterile fashion. A suitable percutaneous approach to the peritoneal cavity was identified and the overlying skin was marked. 1% lidocaine was infiltrated into the skin and subcutaneous tissues for local anesthesia. Then under continuous sonographic guidance a 5 Citizen Of [place] Yueh needle catheter was advanced into the peritoneal cavity. The catheter was advanced off the needle and connected to vacuum bottle with subsequent evacuation of 6000 cc straw-colored fluid. The catheter was removed and a sterile dressing was applied. Patient tolerated the procedure well without immediate complication. CONCLUSION: Successful ultrasound-guided paracentesis with evacuation of 6000 cc of straw-colored fluid. Specimen was submitted for laboratory analysis as requested by the referring clinical team. Dictated by: Phil Motley M.D. on 10/22/2018 at 16:35 Electronically approved by: Phil Motley M.D. on 10/22/2018 at 16:35
--- NOTE | 2018-10-22 16:30 | NUR ---
Back from paracentesis. Per Reva RN , radiology nurse, 6L removed. Dressing to right abdomen clean, dry, and intact
[2018-10-22] MEDS: PROPRANOLOL HCL 40 MG TAB PO SCH (17:28)
[2018-10-22] MEDS: GUAIFENESIN 200 MG/10 ML UDC PO PRN (17:36)
--- NOTE | 2018-10-22 17:57 | NUR ---
Nutrition Intervention Note RD Recommendation(s) for Physician: -Rec GI soft diet as medically feasible -Rec MVi w thiamine and folic acid -Rec Glucerna BID if PO < 50% -Encourage PO and hydration Plan of Care: RD following, monitoring for tolerance and adequacy Nutrition reason for involvement: Diagnosis RD Assessment 10/22 Chart reviewed. 57yo M, who is admitted for alcoholic cirrhosis of liver with ascites. Thoracentesis was done today with 6000cc removed. Visited pt in the room. Family on bedside to provide hx while pt was sleeping. Per daughter, pt has had poor appetite with decreased meal intake for over 3 months. Pt wasnt able to eat much due to dizziness, weakness and fluids buildup in his stomach. Pt often skipped meals due to his symptoms. At this time, pt denied any nausea or vomiting. LBM 10/21. Pt denies any chewing or swallowing difficulty. Pt presents with round and distended stomach upon observation. Family thinks pt has lost a lot of weight but unable to determine how much weight loss due to the fluids. UBW ~176lbs. Will continue to monitor and follow. Principal Problems/Diagnoses: alcoholic liver cirrhosis with ascites PMH: DM, HTN, alcoholic liver cirrhosis GI: round, distended abdomen, flatus present 10/22 Skin: intact Labs: (10/22) Na 131 L, creatinine 0.65 L, glucose 137 H Meds: Lasix, folic acid Ht: 67 in Wt: 192 lb BMI: 30.1 kg/m2 (inaccurate due to ascites) IBW:148lb Malnutrition Evaluation (10/22) The patient does not meet criteria for a specified degree of malnutrition at this time. Will re-evaluate at follow-up as appropriate. Energy intake: <75% of estimated energy requirements for >3 months Weight loss: Unable to determine due to ascites Fat loss: None upon NFPA Muscle loss: None upon NFPA Supporting Evidence: Fluid accumulation: severe, ascites Functional Status: no changes Nutrition Prescription (Diet Order): clear liquid diet Diet Adequacy: Not meeting calorie needs, Not meeting protein needs Diet Education Needs Assessment: Diet education indicated, but patient not appropriate for education at this time. Nutrition Care Level: moderate Nutrition Diagnosis: Inadequate energy intake related to alcoholic liver cirrhosis w ascites as evidenced by poor PO intake for >3 months. Goal: Patient will meet 75-100% of estimated needs by follow up Progress: N/A Interventions: Texture-modified diet, Commercial beverage, Multivitamin/mineral supplement therapy Monitoring/Evaluation: Total energy intake, Total protein intake, Modified diet, Liquid supplement, Weight change Signed: Leah Mei MS, RD, LD
[2018-10-22 18:12] LABS: BASOPHILS # (AUTO) 0.1 (0.0-0.1); EOSINOPHILS # (AUTO) 0.2 (0.0-0.4); EOSINOPHILS % 3.3 % (0.0-6.0); HEMATOCRIT 30.1 % (38.2-49.6); HEMOGLOBIN 10.2 g/dL (14.0-18.0); LYMPHOCYTES # (AUTO) 1.7 (1.0-3.2); LYMPHOCYTES % 23.2 % (18.0-39.1); MEAN CORPUSCULAR HEMOGLOBIN 36.6 pg (28-32); MEAN CORPUSCULAR HGB CONC 33.9 g/dL (31-35); MEAN CORPUSCULAR VOLUME 107.9 fL (81-99); MONOCYTES # (AUTO) 0.9 (0.2-0.8); MONOCYTES % 12.7 % (4.4-11.3); NEUTROPHILS # (AUTO) 4.3 (2.1-6.9); NEUTROPHILS % 59.4 % (38.7-80.0); PLATELET COUNT 91 x10e3/uL (140-360); RED BLOOD COUNT 2.79 x10e6/uL (4.3-5.7); RED CELL DISTRIBUTION WIDTH 14.6 % (11.7-14.4)
--- NOTE | 2018-10-22 18:32 | NUR ---
Resting in bed, side rails upx2, call light within reach, family at bedside. No s/s of acute distress noted. Report to be given to oncoming nurse. Addendum: 10/22/18 at 1836 by SERVANDO KESSLER RN dressing to right abdomen clean, dry, and intact
[2018-10-22 18:58] LABS: BODY FLUID APPEARANCE SL.CLOUDY; BODY FLUID COLOR YELLOW; BODY FLUID TYPE PERITONEAL
[2018-10-22 19:03] LABS: RBC,BODY FLUID 715 cells/uL; WBC,BODY FLUID 192 cells/uL
--- NOTE | 2018-10-22 19:20 | NUR ---
Received patient awake on bed, with family member at the bedside, with ongoing Sandostatin at 25ml/hr. Dressing to the RLQ intact with very minimal discharge. Call light within reached, advised to call for assistance when needed. Will continue to monitor.
[2018-10-22 19:32] LABS: LYMPHOCYTES,BODY FLUID 15 %; MONO/MACROPHG,BODY FLUID 64 %; NEUTROPHILS,BODY FLUID 21 %
[2018-10-23] VITALS (9 sets, daily range): BP systolic 88–116; BP diastolic 50–67
--- NOTE | 2018-10-23 02:00 | NUR ---
refused blood draw at this time
[2018-10-23] MEDS: OCTREOTIDE ACETATE 500 MCG in SODIUM CHLORIDE 0.9% 250ML 249 ML IV SCH ×3 (02:33→20:30)
[2018-10-23 03:00] LABS: CLARITY,URINE SL CLOUDY (CLEAR); COLOR,URINE ORANGE (YELLOW); LEUKOCYTE ESTERASE ,URINE NEGATIVE (NEGATIVE); NITRITE,URINE NEGATIVE (NEGATIVE); PROTEIN,URINE DIPSTICK NEGATIVE (NEGATIVE)
[2018-10-23 03:01] LABS: BACTERIA,URINE FEW /HPF; BILIRUBIN,URINE NEGATIVE (NEGATIVE); EPITHELIAL CELLS,URINE FEW /LPF; KETONES,URINE NEGATIVE (NEGATIVE); MUCUS,URINE FEW (RARE); RBC,URINE >50 /HPF (0-5); URINE UROBILINOGEN 8 mg/dL (0.2 - 1)
[2018-10-23 05:05] LABS: BASOPHILS # (AUTO) 0.1 (0.0-0.1); BASOPHILS % 1.1 % (0.0-1.0); EOSINOPHILS # (AUTO) 0.3 (0.0-0.4); EOSINOPHILS % 3.5 % (0.0-6.0); HEMATOCRIT 28.9 % (38.2-49.6); HEMOGLOBIN 9.7 g/dL (14.0-18.0); LYMPHOCYTES # (AUTO) 1.8 (1.0-3.2); LYMPHOCYTES % 23.5 % (18.0-39.1); MEAN CORPUSCULAR HEMOGLOBIN 35.9 pg (28-32); MEAN CORPUSCULAR HGB CONC 33.6 g/dL (31-35); MONOCYTES # (AUTO) 1.2 (0.2-0.8); MONOCYTES % 15.8 % (4.4-11.3); NEUTROPHILS # (AUTO) 4.2 (2.1-6.9); NEUTROPHILS % 55.8 % (38.7-80.0); PLATELET COUNT 106 x10e3/uL (140-360); RED CELL DISTRIBUTION WIDTH 14.7 % (11.7-14.4)
[2018-10-23] MEDS: METFORMIN HCL 500 MG TAB PO SCH (08:00)
[2018-10-23] MEDS: PROPRANOLOL HCL 40 MG TAB PO SCH ×2 (08:05→17:00)
[2018-10-23] MEDS: HYDROCORTISONE 2.5% PR CRM 1 OZ TUBE TOP SCH ×3 (08:05→21:00)
[2018-10-23] MEDS: FUROSEMIDE 40 MG TAB PO SCH (08:05)
[2018-10-23] MEDS: SPIRONOLACTONE 25 MG TAB PO SCH (08:05)
[2018-10-23] MEDS: METOPROLOL SUCCINATE 50 MG TAB XL PO SCH (08:05)
[2018-10-23] MEDS: PANTOPRAZOLE SOD 40 MG TABEC PO SCH (08:05)
[2018-10-23] MEDS: HYDROCORTISONE ACETATE 25 MG/SUPP.RECT SUPP RC SCH ×2 (08:05→17:48)
[2018-10-23] MEDS: SIMVASTATIN 20 MG TAB PO SCH (09:00)
[2018-10-23] MEDS: FOLIC ACID 1 MG TAB PO SCH (09:00)
[2018-10-23] MEDS: GLIPIZIDE 2.5 MG TABCR PO SCH (09:00)
[2018-10-23 12:28] LABS: BASOPHILS # (AUTO) 0.1 (0.0-0.1); EOSINOPHILS # (AUTO) 0.2 (0.0-0.4); EOSINOPHILS % 2.1 % (0.0-6.0); HEMATOCRIT 30.6 % (38.2-49.6); HEMOGLOBIN 10.3 g/dL (14.0-18.0); LYMPHOCYTES # (AUTO) 1.4 (1.0-3.2); LYMPHOCYTES % 15.6 % (18.0-39.1); MEAN CORPUSCULAR HEMOGLOBIN 35.9 pg (28-32); MEAN CORPUSCULAR HGB CONC 33.7 g/dL (31-35); MEAN CORPUSCULAR VOLUME 106.6 fL (81-99); MONOCYTES # (AUTO) 1.1 (0.2-0.8); MONOCYTES % 12.5 % (4.4-11.3); NEUTROPHILS # (AUTO) 6.1 (2.1-6.9); NEUTROPHILS % 68.4 % (38.7-80.0); PLATELET COUNT 121 x10e3/uL (140-360); RED BLOOD COUNT 2.87 x10e6/uL (4.3-5.7); RED CELL DISTRIBUTION WIDTH 14.2 % (11.7-14.4)
[2018-10-23] MEDS ORDERED: SODIUM CHLORIDE 0.9% 250ML 250 ML ONE ×2 (12:52→22:57)
--- NOTE | 2018-10-23 14:38 | Diagnostic Imaging Report ---
EXAMINATION: CHEST SINGLE (PORTABLE) INDICATION: Alcoholic cirrhosis. Preop. COMPARISON: None FINDINGS: TUBES and LINES: None. LUNGS: Lungs are well inflated. Mild chronic appearing changes in the lungs. Likely minimal scarring/atelectasis in the left lower lung. There is no evidence of pneumonia or pulmonary edema. PLEURA: No pleural effusion or pneumothorax. HEART AND MEDIASTINUM: The cardiomediastinal silhouette is unremarkable. BONES AND SOFT TISSUES: No acute osseous lesion. Soft tissues are unremarkable. UPPER ABDOMEN: No free air under the diaphragm. IMPRESSION: Likely minimal scarring/atelectasis in the left lower lung. Signed by: Dr. Oscar Hanna M.D. on 10/23/2018 2:34 PM
[2018-10-23 14:47] LABS: INR 1.43; PROTHROMBIN TIME 18.6 seconds (11.9-14.5)
--- NOTE | 2018-10-23 16:56 | Diagnostic Imaging Report ---
Right upper quadrant abdominal ultrasound dated 10/23/2018. History: Cirrhosis. Comparison: CT of the abdomen and pelvis dated 08/25/2018. Discussion: Transverse and longitudinal images of the right upper quadrant of the abdomen were obtained demonstrating a liver of normal with increased echogenicity measuring 15.9 cm in length. Irregular nodular contour compatible with ascites. There is no evidence of a focal hepatic mass. The portal vein is patent with hepatopetal flow and is within normal limits measuring 10 mm in diameter. The biliary tree is within normal limits with the common bile duct measuring 3 mm in diameter. There are stones within the gallbladder. The sonographic Casarez's sign was negative. The right kidney is normal in size and echogenicity without evidence of hydronephrosis, stones, or mass and measures 12.6 cm in length. There is a lower pole renal cyst measuring 1.8 cm. Pancreas and aorta are not optimally visualized due to bowel gas. Small amount of ascites around the liver. IMPRESSION: 1. Nodular liver compatible with cirrhosis. 2. Free fluid around the liver. 3. Stones within the gallbladder. Signed by: Dr. Brijesh Hernández DO on 10/23/2018 4:53 PM
[2018-10-23] MEDS ORDERED: LIDOCAINE HCL 2% LOCAL INJ 5 ML SDV VIAL INJ ONE (19:33)
[2018-10-23] MEDS ORDERED: FENTANYL CITRATE/PF 100MCG/2 ML INJ ONE (19:33)
[2018-10-23] MEDS ORDERED: PROPOFOL IV EMULSION 10 MG/ML 50 ML VIAL ONE (19:33)
--- NOTE | 2018-10-23 19:59 | Operative Report ---
DATE OF PROCEDURE: October 23, 2018 REFERRING PHYSICIAN: Dr. Marcella Guzman. PROCEDURE PERFORMED: Esophagogastroduodenoscopy with banding. INDICATIONS FOR EGD: Cirrhosis of the liver, history of melena. MEDICATION: Patient was done under MAC. Please see anesthesiologist's note. PROCEDURE: With patient in left lateral decubitus position, the flexible fiberoptic Olympus gastroscope was introduced into the esophagus under direct visualization without any difficulty. Grade 2 to 3 esophageal varices were noted in the esophagus. There was no active bleeding or stigmata of recent hemorrhage. The scope was then advanced with ease into the stomach. Mucosa overlying the antrum and the body revealed changes compatible with portal hypertensive gastropathy. Also, multiple gastric polyps were noted. It appears to be that patient has had an EGD and possibly polypectomy in the past as there was evidence of tattooing in the mid body of the stomach. The pylorus was of normal contour and shape, it was intubated with ease, and the scope was advanced all the way to the 2nd portion of the duodenum. The scope was then withdrawn slowly. Mucosa overlying the proximal 2nd portion and the duodenal bulb appeared to be within normal limits. The scope was then withdrawn back into the stomach and retroflexed. Mucosa overlying the fundus and the cardia grossly appeared to be within normal limits other than some polyps in the fundus. The scope was subsequently withdrawn. It was then fitted for banding and reintroduced into the esophagus. Five bands were applied to 3 columns of varices. Patient tolerated the procedure well. IMPRESSION 1. Grade 2 to 3 esophageal varices, 5 bands applied to 3 columns of varices. 2. Portal hypertensive gastropathy. 3. Gastric polyps. PLAN: Followup H and H. Continue Inderal 20 mg 1 p.o. b.i.d. Job#: [id number] JESI cc:DR. MARCELLA GUZMAN
[2018-10-23] MEDS: SUCRALFATE 1 GM TAB PO SCH (20:33)
[2018-10-23] MEDS ORDERED: OCTREOTIDE ACETATE 2 ML ONE (22:48)
--- NOTE | 2018-10-24 00:20 | NUR ---
Blood drawn at this time to R wrist x1 stick. No bleeding, bruising, or hematoma. Pressure bandage applied. Blood specimen sent for labs.
[2018-10-24 00:30] LABS: BASOPHILS # (AUTO) 0.1 (0.0-0.1); BASOPHILS % 0.6 % (0.0-1.0); EOSINOPHILS # (AUTO) 0.1 (0.0-0.4); EOSINOPHILS % 1.3 % (0.0-6.0); HEMOGLOBIN 10.1 g/dL (14.0-18.0); LYMPHOCYTES # (AUTO) 1.2 (1.0-3.2); LYMPHOCYTES % 13.1 % (18.0-39.1); MEAN CORPUSCULAR HEMOGLOBIN 36.3 pg (28-32); MEAN CORPUSCULAR HGB CONC 34.8 g/dL (31-35); MEAN CORPUSCULAR VOLUME 104.3 fL (81-99); MONOCYTES # (AUTO) 1.2 (0.2-0.8); MONOCYTES % 12.7 % (4.4-11.3); NEUTROPHILS # (AUTO) 6.5 (2.1-6.9); NEUTROPHILS % 71.9 % (38.7-80.0); PLATELET COUNT 112 x10e3/uL (140-360); RED BLOOD COUNT 2.78 x10e6/uL (4.3-5.7); RED CELL DISTRIBUTION WIDTH 14.5 % (11.7-14.4)
[2018-10-24] MEDS: OCTREOTIDE ACETATE 500 MCG in SODIUM CHLORIDE 0.9% 250ML 249 ML IV SCH ×3 (00:56→15:30)
[2018-10-24 05:08] LABS: ALANINE AMINOTRANSFERASE 15 IU/L (0-55); ALBUMIN 1.8 g/dL (3.5-5.0); ALBUMIN/GLOBULIN RATIO 0.4 (0.8-2.0); ALKALINE PHOSPHATASE 111 IU/L (40-150); ANION GAP 11.6 mmol/L (8-16); BLOOD UREA NITROGEN 10 mg/dL (7-26); BUN/CREATININE RATIO 16 (6-25); CALCIUM 7.7 mg/dL (8.4-10.2); CARBON DIOXIDE 23 mmol/L (22-29); CHLORIDE 104 mmol/L (98-107); CREATININE, SERUM 0.64 mg/dL (0.72-1.25); EST GLOMERULAR FILTRATION RATE > 60 ML/MIN (60-); GLUCOSE 151 mg/dL (74-118); POTASSIUM 3.6 mmol/L (3.5-5.1); SODIUM 135 mmol/L (136-145)
[2018-10-24 05:49] VITALS: BP 99/59
[2018-10-24 06:16] LABS: BASOPHILS # (AUTO) 0.1 (0.0-0.1); BASOPHILS % 0.5 % (0.0-1.0); EOSINOPHILS # (AUTO) 0.1 (0.0-0.4); EOSINOPHILS % 1.4 % (0.0-6.0); HEMATOCRIT 29.4 % (38.2-49.6); LYMPHOCYTES # (AUTO) 1.7 (1.0-3.2); LYMPHOCYTES % 17.8 % (18.0-39.1); MEAN CORPUSCULAR HEMOGLOBIN 36.2 pg (28-32); MEAN CORPUSCULAR VOLUME 106.5 fL (81-99); MONOCYTES # (AUTO) 1.2 (0.2-0.8); MONOCYTES % 12.7 % (4.4-11.3); NEUTROPHILS # (AUTO) 6.3 (2.1-6.9); NEUTROPHILS % 67.3 % (38.7-80.0); PLATELET COUNT 109 x10e3/uL (140-360); RED BLOOD COUNT 2.76 x10e6/uL (4.3-5.7); RED CELL DISTRIBUTION WIDTH 14.3 % (11.7-14.4)
[2018-10-24 08:40] VITALS: BP 105/64
[2018-10-24] MEDS: SIMVASTATIN 20 MG TAB PO SCH (08:45)
[2018-10-24] MEDS: FOLIC ACID 1 MG TAB PO SCH (08:45)
[2018-10-24] MEDS: GLIPIZIDE 2.5 MG TABCR PO SCH (08:45)
[2018-10-24] MEDS: SUCRALFATE 1 GM TAB PO SCH ×3 (08:46→16:49)
[2018-10-24] MEDS: PROPRANOLOL HCL 40 MG TAB PO SCH ×2 (08:46→16:29)
[2018-10-24] MEDS: METFORMIN HCL 500 MG TAB PO SCH (08:46)
[2018-10-24] MEDS: SPIRONOLACTONE 25 MG TAB PO SCH (08:46)
[2018-10-24] MEDS: METOPROLOL SUCCINATE 50 MG TAB XL PO SCH (08:46)
[2018-10-24] MEDS: FUROSEMIDE 40 MG TAB PO SCH (08:46)
[2018-10-24] MEDS: PANTOPRAZOLE SOD 40 MG TABEC PO SCH (08:46)
[2018-10-24] MEDS: HYDROCORTISONE 2.5% PR CRM 1 OZ TUBE TOP SCH ×2 (09:00→15:00)
[2018-10-24 09:09] VITALS: BP 105/64
[2018-10-24] MEDS: HYDROCORTISONE ACETATE 25 MG/SUPP.RECT SUPP RC SCH ×2 (10:20→16:49)
[2018-10-24 11:47] LABS: BASOPHILS # (AUTO) 0.1 (0.0-0.1); BASOPHILS % 0.7 % (0.0-1.0); EOSINOPHILS # (AUTO) 0.1 (0.0-0.4); EOSINOPHILS % 1.6 % (0.0-6.0); LYMPHOCYTES # (AUTO) 1.2 (1.0-3.2); LYMPHOCYTES % 15.6 % (18.0-39.1); MEAN CORPUSCULAR HGB CONC 33.3 g/dL (31-35); MEAN CORPUSCULAR VOLUME 107.9 fL (81-99); MONOCYTES # (AUTO) 1.1 (0.2-0.8); MONOCYTES % 13.8 % (4.4-11.3); NEUTROPHILS # (AUTO) 5.2 (2.1-6.9); PLATELET COUNT 125 x10e3/uL (140-360); RED BLOOD COUNT 2.78 x10e6/uL (4.3-5.7); RED CELL DISTRIBUTION WIDTH 14.6 % (11.7-14.4)
[2018-10-24 12:30] VITALS: BP 95/57
--- NOTE | 2018-10-24 15:29 | NUR ---
Nutrition Education Learner(s):Pt, and 2 daughters Barriers: None Cultural/Language Modifications: None stated Readiness: Willing Method: Handouts and verbal instruction Topics: 2g sodium, carbohydrate counting/diabetes and fluid restrition Understanding/Compliance: Pt gave examples of how to identify, carbohydrates, sodium and fluids. Pt gave examples of portion sizes. Expect compliance as pt was knowledgeable.
[2018-10-24] MEDS: TRAMADOL HCL 50 MG TAB PO PRN (16:51)
--- NOTE | 2018-10-24 17:11 | NUR ---
SPOKE WITH MD Shari GUZMAN WHEN ROUNDING AND STATES PT CAN GO HOME IF Lynn GUZMAN IS OK WITH PT BEING DISCHARGED SPOKE WITH MD Lynn GUZMAN. MD GUZMAN STATES PT IS OK TO GO IF PT TOLERATES GI SOFT DIET FOR DINNER. ORDERS TO STOP SANDOSTATIN PRIOR TO DC GIVEN
[2018-10-24] MEDS ORDERED: ALDACTONE25 MG PO (17:17)
[2018-10-24 18:04] VITALS: BP 100/57
--- NOTE | 2018-10-24 18:54 | NUR ---
PT TOLERATED DIET. NO NAUSEA OR VOMITING OCCURRED DISCHARGE INSTRUCTIONS AND PRESCRIPTIONS GIVEN. PT VERBALIZED UNDERSTANDING IVS DC PRESSURE DRESSING APPLIED AND TAPED. PT IS GETTING DRESSED. WILL CALL LIGHT WHEN READY
[2018-10-24 19:23] VITALS: BP 105/85
--- NOTE | 2018-10-24 19:41 | NUR ---
Patient discharge teaching and IV D/C done by day shift nurse. Denies pain at this time. No resp distress. All belonging with patient.
== END 2018-10-24 19:24 | disposition home or self-care (01) | DRG 432 ==
LOC: ER 16:32 → ERHOLD 17:01 → MED/SURG2 19:48
PROC: 0W9G3ZX Drainage of Peritoneal Cavity, Percutaneous Approach, Diagnostic (ICD-10-PCS; 2018-10-22)
PROC: 30233K1 Transfusion of Nonautologous Frozen Plasma into Peripheral Vein, Percutaneous Approach (ICD-10-PCS; 2018-10-23)
PROC: 06L38CZ Occlusion of Esophageal Vein with Extraluminal Device, Via Natural or Artificial Opening Endoscopic (ICD-10-PCS; principal; 2018-10-23 16:40)
DX: K70.31 Alcoholic cirrhosis of liver with ascites (principal); I85.11 Secondary esophageal varices with bleeding; K62.5 Hemorrhage of anus and rectum; K76.6 Portal hypertension; E11.9 Type 2 diabetes mellitus without complications; G47.33 Obstructive sleep apnea (adult) (pediatric); I10 Essential (primary) hypertension; F10.21 Alcohol dependence, in remission; R19.7 Diarrhea, unspecified; Z79.4 Long term (current) use of insulin; D64.9 Anemia, unspecified; K31.89 Other diseases of stomach and duodenum
CPT/HCPCS: 36415; 43235; 49083; 71045; 74470; 76705; 80053; 80320; 81001; 82105; 82140; 82607; 82728; 82948; 83540; 83735; 84100; 84425; 84466; 85025; 85045; 85610; 85730; 86850; 86900; 87070; 87205; 89051; 93005; 96366; 99284; J2001; J2353; J3411; J3430; J7050; P9017

== ENCOUNTER → 2018-12-02 | Outpatient (CLI) | payer OTHER ==
[~2018-12-02] MED LIST changes: +ALDACTONE25 MG PO; +LASIX20 MG PO; +SPIRONOLACTONE25 MG PO
[2018-12-02 16:37] LABS: INR 1.67
[2018-12-02 16:38] LABS: PARTIAL THROMBOPLASTIN TIME 33.8 seconds (23.8-35.5)
--- NOTE | 2018-12-02 18:50 | Diagnostic Imaging Report ---
Procedure: Ultrasound-guided therapeutic paracentesis Pre-operative diagnosis: Ascites Post-operative diagnosis: Ascites Conscious Sedation: None The patient's heart rate and pulse oximetry were continuously monitored by the interventional radiology nurse. Blood pressure was monitored at 5 minute intervals. Additional Medications: Lidocaine 1% for local anesthesia Estimated blood loss: Less than 5 cc Specimens: 6000 cc serous straw-colored fluid Implants: None Condition at completion: Stable Disposition: Discharged home DISCUSSION: Informed consent was obtained and documented in the medical record after discussion of risks and benefits with the healthcare proxy. Preliminary sonographic evaluation confirmed large volume ascites. A suitable percutaneous approach in the right lower abdomen was identified and the overlying skin was prepped and draped in standard sterile fashion. 1% lidocaine was infiltrated into the skin and subcutaneous tissues for local anesthesia. Then under continuous sonographic guidance, a 5 [place] Yueh needle catheter was advanced into the peritoneal space with removal of 6000 cc of ascitic fluid. Post procedural ultrasound demonstrated small to moderate residual ascites. The catheter was removed and a sterile dressing was applied. The patient tolerated the procedure well without immediate complication. IMPRESSION: Successful ultrasound-guided therapeutic paracentesis with removal of 6000 cc of serous ascitic fluid. Signed by: Dr. Mukul Moore MD on 12/02/2018 6:47 PM
== END ==
LOC: US 15:35
PROVIDERS: ATTEND Internal Medicine Gastroenterology
DX: R18.8 Other ascites (principal); K74.60 Unspecified cirrhosis of liver
CPT/HCPCS: 36415; 49083; 85049; 85610; 85730

== ENCOUNTER → 2018-12-17 | Outpatient (CLI) | payer OTHER ==
--- NOTE | 2018-12-17 16:12 | Diagnostic Imaging Report ---
Date and Time: 12/17/2018 Procedure: Ultrasound-guided paracentesis terminal press operator: Dr. Motley Pre-operative diagnosis: Ascites Post-operative diagnosis: Ascites Conscious Sedation: None The patient's heart rate and pulse oximetry were continuously monitored by the interventional radiology nurse. Blood pressure was monitored at 5 minute intervals. Additional Medications: Lidocaine 1% for local anesthesia Estimated blood loss: Minimal Blood products administered: None Specimens: 6650 cc straw-colored fluid Implants: None Condition at completion: Stable Disposition: Discharged home DISCUSSION: Informed consent was obtained and documented in the medical record after discussion of risks and benefits. Preliminary sonographic evaluation confirmed moderate ascites. A suitable percutaneous approach in the right upper quadrant was identified and the overlying skin was prepped and draped in standard sterile fashion. 1% lidocaine was infiltrated into the skin and subcutaneous tissues for local anesthesia. Then under continuous sonographic guidance, a 5 Malag[place] Yueh needle catheter was advanced into the peritoneal space. The catheter was advanced off the needle and connected to vacuum bottle with subsequent evacuation of 6650 cc straw-colored fluid. The catheter was removed and a sterile dressing was applied. The patient tolerated the procedure well without immediate complication. FINDINGS: Moderate ascites IMPRESSION: Successful ultrasound-guided paracentesis with evacuation of 6650 cc straw-colored fluid. Signed by: Dr. Phil Motley M.D. on 12/17/2018 4:08 PM
== END ==
LOC: US 12:51
PROVIDERS: ATTEND Internal Medicine Gastroenterology
DX: R18.8 Other ascites (principal); K74.60 Unspecified cirrhosis of liver
CPT/HCPCS: 49083

== ENCOUNTER 2018-12-22 22:04 | Inpatient (IN) | payer OTHER ==
[~2018-12-22] VITALS: Ht 170.2 cm; Wt 68.0 kg
--- OUTSIDE RECORDS SUMMARY | 2018-12-22 22:06 | XMS REPORT | Clinical Summary ---
Author Author Darryl [facility] Organization [facility] Address Unknown Phone Unavailable Care Team Providers Care Digital Imaging Specialist Name Role Phone PCP Unavailable Allergies Not on File Medications Not on file Active Problems Not on file Encounters Care Team Description Date Type Specialty System, Provider Not In, Canceled (Scheduling Error) 04/23/2018 Lab Lab after 12/21/2017 Social History Date Tobacco Use Types Packs/Day [...] Last Done Comments COLON CANCER SCREENING 2011 SHINGLES VACCINES (1 of 2011 2) INFLUENZA VACCINE 06/10/2018 08/27/2017 Results Not on fileafter 12/21/2017 Advance Directives Patient has advance care planning documents on file. For more information, saturnino green contact: Darryl Pearson [address] [place] [address]
--- OUTSIDE RECORDS SUMMARY | 2018-12-22 22:06 | XMS REPORT | Clinical Summary ---
Author Author BARB Quar[facility] TechnologiesEastern [facility] CenterShopmiumH[facility] Address Unknown Phone Unavailable Care Team Providers Care Prospecting Driller Name Role Phone Jose E Gallegos PCP [...] Encounter 05/15/2018 Hospital Pre-Admission Testing Encounter after 12/21/2017 Social History Date Tobacco Use [...] Type Area Manufactur er 01/21/2020 [id number] / [id number] / Tissue Memb Amniogrft 2.5x2.0 Ophthalmol Left: Eye BIO-TISSUE Ag-[id number] - [id number] Implanted: Qty: 1 on 05/18/2018 by [...] METER Routine 05/18/2018 7:53 AM CDT after 12/21/2017 Results * POC-Glucose meter (05/18/2018 11:03 AM CDT) Only the most recent of 3 results within the time period is included. POC-Glucose Meter 79Comment: TESTED AT [facility] 70 - 110 mg/dL [facility] [address] [place] [place] [address] Specimen Blood Performing Organization Address City/State/Zipcode Phone Number [facility] [address] [place] [address] [facility] after 12/21/2017 Insurance Payer Benefit Subscriber ID Type Phone Address Plan / Group [employer] xxxxxxxxxx [employer] E EXCHANGE
--- OUTSIDE RECORDS SUMMARY | 2018-12-22 22:07 | XMS REPORT | Continuity of Care Document ---
Author Author [facility] Interface Address Unknown Phone Unavailable Problems Problem Status Onset Date Classification Date Reported Comments Source ACUTE LOWER UTI Active 10/30/2018 [facility] GENERAL WEAKNESS Active 10/30/2018 [facility] OTHER Active 10/05/2018 [facility] ABDOMINAL EXTENDED/SHORTNESS OF BREATH Active 09/29/2018 [facility] ACUTE ABDOMINAL PAIN, ASCITES, SIRS (SYS Active 09/29/2018 [facility] Colitis, acute Active Problem 05/18/2018 [facility] Hypokalemia Active Problem 10/25/2018 [facility] Hyponatremia Active Problem 10/25/2018 [facility] Alcoholic cirrhosis of liver with ascites Active Problem 10/25/2018 [facility] Colitis, acute Active Problem 10/25/2018 [facility] GI Active Problem 10/25/2018 [facility] UNSPECIFIED ABDOMINAL PAIN Active [facility] OTHER ASCITES Active [facility] SIRS OF NON-INFECTIOUS ORIGIN W/O ACUTE Active [facility] URINARY TRACT INFECTION, SITE NOT SPECIF Active [facility] Medications Medication Details Route Status Patient Instructions Ordering Provider Order Date Source Spironolactone 25 Mg Tablet, 25 Mg Oral Daily Active 10/24/2018 [facility] Benazepril/Hydrochlorothiazide (Benazepril-Hctz 20-12.5 Mg Tab) 1 Each Tablet, 1 Tab Oral Daily Active 10/21/2018 [facility] Ciprofloxacin Hcl (Cipro) 500 Mg Tablet, 500 Mg Oral Every 12 Hours Active 10/21/2018 [facility] Ferrous Sulfate 325 Mg Tablet, 325 Mg Oral Daily Active 10/21/2018 [facility] Metronidazole (Flagyl) 250 Mg Tablet, 500 Mg Oral Twice A Day Active 10/21/2018 [facility] Len/Polymyx B Sulf/Dexameth (Maxitrol Eye Ointment) 3.5 Gm Oint...g., 0.25 Inch Left Eye Twice A Day Active 10/21/2018 [facility] Ondansetron (Zofran Odt) 4 Mg Tab.rapdis, 4 Mg Sublingual Every 6 Hours as needed for Nausea Active 10/21/2018 [facility] Aspirin (Aspir 81) 81 Mg Tablet., 81 Mg Oral Daily Active 08/25/2018 [facility] Loratadine 10 Mg Tablet, 10 Mg Oral Daily Active 08/25/2018 [facility] Metoprolol Succinate 50 Mg Tab.er.24h Daily [facility] Benazepril Hcl 10 Mg Tablet, 20 Mg Oral Daily Active 05/18/2018 [facility] Hydrochlorothiazide (Esidrix*) 25 Mg Tab, 12.5 Mg Oral Daily Active 05/18/2018 [facility] Interferon Pf Opth , 1 Drp Left Eye Four Times Daily Active 05/18/2018 [facility] Metformin Hcl 500 Mg Tablet, 1000 Mg Oral Every Morning Active 05/18/2018 [facility] Omeprazole 40 Mg Capsule., 40 Mg Oral Daily Active 05/18/2018 [facility] Metoprolol Succinate 50 Mg Tab.er.24h Daily [facility] 05/18/2018 [facility] Benazepril Hcl 10 Mg Tablet, 20 Mg Oral Daily Active 05/18/2018 [facility] Hydrochlorothiazide (Esidrix*) 25 Mg Tab, 12.5 Mg Oral Daily Active 05/18/2018 [facility] Metformin Hcl 500 Mg Tablet, 1000 Mg Oral Every Morning Active 05/18/2018 [facility] Omeprazole 40 Mg Capsule., 40 Mg Oral Daily Active 05/18/2018 [facility] Aspirin (Aspir 81) 81 Mg Tablet., 81 Mg Oral Daily Active 11/26/2017 [facility] Cephalexin Monohydrate (Keflex) 500 Mg Capsule, 500 Mg Oral Every 12 Hours Active Juan[facility] 11/26/2017 [facility] Prednisone 20 Mg Tab, 20 Mg Oral Daily Active [facility] 11/26/2017 [facility] Aspirin (Aspir 81) 81 Mg Tablet., 81 Mg Oral Daily Active 11/26/2017 [facility] Cephalexin Monohydrate (Keflex) 500 Mg Capsule, 500 Mg Oral Every 12 Hours Active [facility] 11/26/2017 [facility] Prednisone 20 Mg Tab, 20 Mg Oral Daily Active [facility] 11/26/2017 [facility] Aspirin (Aspir 81) 81 Mg Tablet. Daily Active [facility] Benazepril/Hydrochlorothiazide (Benazepril-Hctz 20-12.5 Mg Tab) 1 Each Tablet Daily Active [facility] Ferrous Sulfate 325 Mg Tablet Daily Active [facility] Glipizide (Glipizide Er) 5 Mg Tab.er.24 Daily Active [facility] Loratadine 10 Mg Tablet Daily Active [facility] Lovastatin 40 Mg Tablet Daily Active THERAPEUTICALLY SUBSTITUTED WITH SIMVASTATIN 20MG [facility] Metformin Hcl 500 Mg Tablet Twice A Day Active [facility] Omeprazole 20 Mg Capsule. Daily as needed for Indigestion Active [facility] Furosemide (Lasix) 20 Mg Tablet Daily Active [facility] Glipizide (Glipizide Er) 5 Mg Tab.er.24 Daily Active [facility] Lovastatin 40 Mg Tablet Daily Active THERAPEUTICALLY SUBSTITUTED WITH SIMVASTATIN 20MG [facility] Metformin Hcl 500 Mg Tablet Daily Active [facility] Omeprazole 20 Mg Capsule. Daily Active [facility] Proctozone Hc Three Times A Day Active APPLY RECTALLY [facility] Spironolactone (Aldactone) 25 Mg Tablet Daily Active [facility] Tramadol Hcl (Ultram 50MG*) 50 Mg Tab Every 6 Hours as needed for Pain Active [facility] Allergies, Adverse Reactions, Alerts Substance Category Reaction Severity Reaction type Status Date Reported Comments Source Immunizations Immunization Date Given Site Status Last Updated Comments Source Results Order Name Results Value Reference Range Date Interpretation Comments Source Paracentesis w ultrasound guide VR Paracentesis w ultrasound guide VR Patient Name: SYBIL VASQUEZ : 1960; Age: 57 years Male MR: [id number] Study: Paracentesis w ultrasound guide VR 11/01/2018 14:21 SOCK [facility]ER PROCEDURE: Ultrasound-guided paracentesis CLINICAL INFORMATION: Ascites; Other- See Reason for Consult - acities PROCEDURE: The procedure, risks, benefits and alternatives were discussed. Informed consent was obtained. Timeout was performed prior to the procedure. Ultrasound was used to evaluate potential access sites. The right abdomen was sterilely prepped and draped. 1% lidocaine was used for local anesthesia. Using ultrasound guidance, 6-Panamanian sheathed needle was advanced into the peritoneal space using trocar technique. Ascites was aspirated through the sheath after removal of the needle. Upon completion of the procedure, the sheath was removed. Pressure was applied at the puncture site with adequate hemostasis. Sterile dressing was applied. There were no evident complications and the patient had no complaints. FINDINGS: Total volume of 5.5 liters of clear yellow ascites was removed. IMPRESSION: 1. Technically successful ultrasound guided paracentesis. SL: [id number] 11/01/2018 - - Read by: Derrick Gonzalez Dictated Date/time: 11/01/18 22:41 Electronically Signed by: Derrick Gonzalez 11/01/18 22:42 FINAL REPORT [facility] Chest 1view DX Chest 1view DX Exam: Chest 1view DX Clinical Indication: Altered mental status Comparison: None FINDINGS: Single frontal radiograph of the chest is performed. Low lung volumes with vascular crowding. No focal consolidation. No pleural effusion or pneumothorax. Cardiomediastinal silhouette is within normal limits. No acute osseous abnormality identified. IMPRESSION: Low lung volumes without other acute radiographic abnormality in the chest. SL: [id number] 10/30/2018 - - Read by: Mitchell Sánchez MD Dictated Date/time: 10/30/18 22:08 Electronically Signed by: Mitchell Sánchez MD 10/30/18 22:09 FINAL REPORT [facility] Brain wo contrast CT Brain wo contrast CT CT HEAD WITHOUT CONTRAST Clinical Indication: - AMS. Comparison: None. TECHNIQUE: CT images were obtained from the foramen magnum to the vertex without the use of intravenous contrast on a multidetector CT. CT imaging was performed with exposure control parameters to reduce radiation dose. Coronal and sagittal reconstructions were obtained. CT radiation dose DLP: 982.82 mGy-cm FINDINGS: There is no hemorrhage, extra-axial fluid collection, overt mass, midline shift or hydrocephalus. Scattered periventricular and deep white matter hypodensities are identified, nonspecific but may represent minimal chronic ischemic small vessel changes. Intracranial vascular calcifications are noted. The visualized paranasal sinuses are clear. The mastoid air cells are clear. The calvarium and skull base are intact. If clinical concern persists for acute pathology further evaluation with MRI brain can be obtained if warranted. IMPRESSION: No CT evidence of acute intracranial abnormality. Minimal chronic ischemic small vessel changes. SL: [id number] 10/30/2018 - - Read by: Bhavin Holman MD Dictated Date/time: 10/30/18 23:05 Electronically Signed by: Bhavin Holman MD 10/30/18 23:12 FINAL REPORT [facility] Capillary blood glucose measurement by glucometer (mass/volume) 195 70 - 120 10/24/2018 [facility] Blood leukocytes automated count (number/volume) 7.67 4.8 - 10.8 10/24/2018 [facility] Blood erythrocytes automated count (number/volume) 2.78 4.3 - 5.7 10/24/2018 [facility] Blood hemoglobin measurement (moles/volume) 10.0 14.0 - 18.0 10/24/2018 [facility] Automated blood hematocrit (volume fraction) 30.0 38.2 - 49.6 10/24/2018 [facility] Automated erythrocyte mean corpuscular volume 107.9 81 - 99 10/24/2018 [facility] Automated erythrocyte mean corpuscular hemoglobin (mass per erythrocyte) 36.0 28 - 32 10/24/2018 [facility] Automated erythrocyte mean corpuscular hemoglobin concentration measurement (mass/volume) 33.3 31 - 35 10/24/2018 [facility] RDW BldCo-Rto 14.6 11.7 - 14.4 10/24/2018 [facility] Automated blood platelet count (count/volume) 125 140 - 360 10/24/2018 [facility] Automated blood segmented neutrophil count as percentage of total leukocytes 68.0 38.7 - 80.0 10/24/2018 [facility] Automated blood lymphocyte count as percentage ot total leukocytes 15.6 18.0 - 39.1 10/24/2018 [facility] Automated blood monocyte count as percentage of total leukocytes 13.8 4.4 - 11.3 10/24/2018 [facility] Automated blood eosinophil count as percentage of total leukocytes 1.6 0.0 - 6.0 10/24/2018 [facility] Automated blood basophil count as percentage of total leukocytes 0.7 0.0 - 1.0 10/24/2018 [facility] IM GRANULOCYTES % 0.3 0.0 - 1.0 10/24/2018 [facility] Automated blood neutrophil count 5.2 2.1 - 6.9 10/24/2018 [facility] Blood lymphocytes count (number/volume) 1.2 1.0 - 3.2 10/24/2018 [facility] Blood monocytes automated count (number/volume) 1.1 0.2 - 0.8 10/24/2018 [facility] Automated blood eosinophil count 0.1 0.0 - 0.4 10/24/2018 [facility] Automated blood basophil count (count/volume) 0.1 0.0 - 0.1 10/24/2018 [facility] Absolute Immature Granulocyte (auto 0.02 0 - 0.1 10/24/2018 [facility] Serum or plasma sodium measurement (moles/volume) 135 136 - 145 10/24/2018 [facility] Serum or plasma potassium measurement (moles/volume) 3.6 3.5 - 5.1 10/24/2018 [facility] Serum or plasma chloride measurement (moles/volume) 104 98 - 107 10/24/2018 [facility] Serum or plasma carbon dioxide, total measurement (moles/volume) 23 22 - 29 10/24/2018 [facility] Serum or plasma anion gap 11.6 8 - 16 10/24/2018 [facility] Serum or plasma urea nitrogen measurement (mass/volume) 10 7 - 26 10/24/2018 [facility] Serum or plasma creatinine measurement (mass/volume) 0.64 0.72 - 1.25 10/24/2018 [facility] Serum or plasma urea nitrogen/creatinine mass ratio 16 6 - 25 10/24/2018 [facility] Estimated glomerular filtration rate (GFR) determination > 60 60 10/24/2018 [facility] Glucose measurement 151 74 - 118 10/24/2018 [facility] Serum or plasma calcium measurement (mass/volume) 7.7 8.4 - 10.2 10/24/2018 [facility] Serum or plasma total bilirubin measurement (mass/volume) 5.2 0.2 - 1.2 10/24/2018 [facility] Aspartate Amino Transf (AST/SGOT) 32 5 - 34 10/24/2018 [facility] Serum or plasma alanine aminotransferase measurement (enzymatic activity/volume) 15 0 - 55 10/24/2018 [facility] Serum or plasma protein measurement (mass/volume) 6.3 6.5 - 8.1 10/24/2018 [facility] Serum or plasma albumin measurement (mass/volume) 1.8 3.5 - 5.0 10/24/2018 [facility] Plasma globulin measurement (mass/volume) 4.5 2.3 - 3.5 10/24/2018 [facility] Serum or plasma albumin/globulin mass ratio 0.4 0.8 - 2.0 10/24/2018 [facility] Serum or plasma alkaline phosphatase measurement (enzymatic activity/volume) 111 40 - 150 10/24/2018 [facility] Prothrombin time (PT) in platelet poor plasma by coagulation assay 18.6 11.9 - 14.5 10/23/2018 [facility] INR in Platelet poor plasma by Coagulation assay 1.43 10/23/2018 [facility] Activated partial thromboplastin time (aPTT) in platelet poor plasma bycoagulation assay 38.0 23.8 - 35.5 10/23/2018 [facility] Serum or plasma ferritin measurement (mass/volume) 513.55 21.81 - 274.66 10/23/2018 [facility] Blood cobalamin (vitamin B12) measurement (mass/volume) 722 213 - 816 10/23/2018 [facility] Serum or plasma pitis-6-xzfxcavunkf.tumor marker measurement (mass/volume) 3.4 0.0 - 8.3 10/23/2018 [facility] Serum or plasma hepatitis A virus IgM antibody detection by immunoassay Negative Negative 10/23/2018 [facility] Serum or plasma hepatitis B virus surface antigen detection by immunoassay Negative Negative 10/23/2018 [facility] Serum or plasma hepatitis B virus core IgM antibody detection by immunoassay Negative Negative 10/23/2018 [facility] Urine color determination ORANGE YELLOW 10/23/2018 [facility] Urine clarity SL CLOUDY CLEAR 10/23/2018 [facility] Specific gravity of Urine by Test strip 1.020 1.010 - 1.025 10/23/2018 [facility] Urine pH measurement by automated test strip 6 5 - 7 10/23/2018 [facility] Urine leukocyte esterase detection by dipstick NEGATIVE NEGATIVE 10/23/2018 [facility] Urine nitrite detection NEGATIVE NEGATIVE 10/23/2018 [facility] Urine protein measurement by test strip (mass/volume) NEGATIVE NEGATIVE 10/23/2018 [facility] Urine glucose detection NEGATIVE NEGATIVE 10/23/2018 [facility] Urine ketones detection by automated test strip NEGATIVE NEGATIVE 10/23/2018 [facility] Urine urobilinogen measurement by test strip (mass/volume) 8 0.2 - 1 10/23/2018 [facility] Urine total bilirubin measurement (mass/volume) NEGATIVE NEGATIVE 10/23/2018 [facility] Urine erythrocytes detection 4+ NEGATIVE 10/23/2018 [facility] Automated urine sediment leukocyte count by microscopy (number/high power field) 6-10 0 - 5 10/23/2018 [facility] Erythrocytes detection in urine sediment by light microscopy >50 0 - 5 10/23/2018 [facility] Bacteria detection in urine sediment by light microscopy FEW NONE 10/23/2018 [facility] Epithelial cells detection in urine sediment by light microscopy FEW NONE 10/23/2018 [facility] Mucus detection in urine sediment by light microscopy FEW RARE 10/23/2018 [facility] Specimen source identification of body fluid PERITONEAL 10/22/2018 [facility] Evaluation of color of body fluid YELLOW 10/22/2018 [facility] Determination of appearance of body fluid SL.CLOUDY 10/22/2018 [facility] Manual body fluid leukocytes count (number/volume) 192 10/22/2018 [facility] Manual body fluid erythrocytes count (number/volume) 715 10/22/2018 [facility] Manual body fluid neutrophils/100 leukocytes 21 10/22/2018 [facility] Body fluid lymphocyte count 15 10/22/2018 [facility] Body fluid monocyte count 64 10/22/2018 [facility] Total cell count 100 10/22/2018 [facility] Automated reticulocyte count as percentage of total erythrocytes 6.5 0.8 - 2.2 10/22/2018 [facility] Serum or plasma iron measurement (mass/volume) 95 65 - 175 10/22/2018 [facility] Serum or plasma iron binding capacity measurement (mass/volume) 108 261 - 478 10/22/2018 [facility] Serum or plasma iron saturation measurement (mass fraction) 88 15 - 50 10/22/2018 [facility] Serum or plasma transferrin measurement (mass/volume) 77 174 - 364 10/22/2018 [facility] Phosphorus measurement 2.5 2.3 - 4.7 10/21/2018 [facility] Serum or plasma magnesium measurement (mass/volume) 1.5 1.3 - 2.1 10/21/2018 [facility] Ammonia Ser-mCnc 107 31 - 123 10/21/2018 [facility] Serum or plasma ethanol measurement (mass/volume) < 10.0 0.0 - 10.0 10/21/2018 [facility] Abdomen/Pelvis wo IV contrast CT Abdomen/Pelvis wo [...] Mathew Gonzalez MD 10/06/18 01:22 FINAL REPORT [facility] Paracentesis w ultrasound guide VR Paracentesis w [...] lidocaine was used for local anesthesia. A 5-Panamanian sheathed needle was advanced into the peritoneal [...] Fermin Peck DO 10/02/18 09:48 FINAL REPORT [facility] ED Abdomen/Pelvis IV contrast only CT ED Abdomen/Pelvis [...] illness. 4. Cholelithiasis 5. Bilateral inguinal hernias. MAYA: RODRIGUEZ 09/29/2018 - - Read by: Ruthy Delgado MD Dictated Date/time: 09/29/18 21:34 Electronically Signed by: Ruthy Delgado MD 09/29/18 21:44 FINAL REPORT [facility] Hyaline casts detection in urine sediment by light microscopy 2-5 0 - 1 08/25/2018 [facility] Serum or plasma creatine kinase measurement (enzymatic activity/volume) 119 30 - 200 08/25/2018 [facility] Serum or plasma creatine kinase MB measurement (mass/volume) 1.80 0 - 5.0 08/25/2018 [facility] Troponin I measurement by highly sensitive enzyme immunoassay < 0.001 0 - 0.300 08/25/2018 [facility] Serum or plasma amylase measurement (enzymatic activity/volume) 34 25 - 125 08/25/2018 [facility] Serum or plasma lipase measurement (enzymatic activity/volume) 34 8 - 78 08/25/2018 [facility] Capillary blood glucose measurement by glucometer (mass/volume) Capillary blood glucose measurement by glucometer (mass/volume) 243 70 - 120 11/26/2017 [facility] Automated blood basophil count (count/volume) Automated blood basophil count (count/volume) 0.0 0.0 - 0.1 11/26/2017 [facility] Automated blood basophil count as percentage of total leukocytes Automated blood basophil count as percentage of total leukocytes 0.1 0.0 - 1.0 11/26/2017 [facility] Automated blood eosinophil count Automated blood eosinophil count 0.0 0.0 - 0.4 11/26/2017 [facility] Automated blood eosinophil count as percentage of total leukocytes Automated blood eosinophil count as percentage of total leukocytes 0.0 0.0 - 6.0 11/26/2017 [facility] Automated blood hematocrit (volume fraction) Automated blood hematocrit (volume fraction) 37.2 38.2 - 49.6 11/26/2017 [facility] Automated blood lymphocyte count as percentage ot total leukocytes Automated blood lymphocyte count as percentage ot total leukocytes 7.0 18.0 - 39.1 11/26/2017 [facility] Automated blood monocyte count as percentage of total leukocytes Automated blood monocyte count as percentage of total leukocytes 9.8 4.4 - 11.3 11/26/2017 [facility] Automated blood neutrophil count Automated blood neutrophil count 9.1 2.1 - 6.9 11/26/2017 [facility] Automated blood platelet count (count/volume) Automated blood platelet count (count/volume) 125 140 - 360 11/26/2017 [facility] Automated blood segmented neutrophil count as percentage of total leukocytes Automated blood segmented neutrophil count as percentage of total leukocytes 82.0 38.7 - 80.0 11/26/2017 [facility] Automated erythrocyte mean corpuscular hemoglobin (mass per erythrocyte) Automated erythrocyte mean corpuscular hemoglobin (mass per erythrocyte) 32.8 28 - 32 11/26/2017 [facility] Automated erythrocyte mean corpuscular hemoglobin concentration measurement (mass/volume) Automated erythrocyte mean corpuscular hemoglobin concentration measurement (mass/volume) 34.7 31 - 35 11/26/2017 [facility] Automated erythrocyte mean corpuscular volume Automated erythrocyte mean corpuscular volume 94.7 81 - 99 11/26/2017 [facility] Blood erythrocytes automated count (number/volume) Blood erythrocytes automated count (number/volume) 3.93 4.3 - 5.7 11/26/2017 [facility] Blood hemoglobin measurement (moles/volume) Blood hemoglobin measurement (moles/volume) 12.9 14.0 - 18.0 11/26/2017 [facility] Blood leukocytes automated count (number/volume) Blood leukocytes automated count (number/volume) 11.13 4.8 - 10.8 11/26/2017 [facility] Blood lymphocytes count (number/volume) Blood lymphocytes count (number/volume) 0.8 1.0 - 3.2 11/26/2017 [facility] Blood monocytes automated count (number/volume) Blood monocytes automated count (number/volume) 1.1 0.2 - 0.8 11/26/2017 [facility] Estimated glomerular filtration rate (GFR) determination Estimated glomerular filtration rate (GFR) determination null 60 11/26/2017 [facility] Glucose measurement Glucose measurement 253 74 - 118 11/26/2017 [facility] Serum or plasma anion gap Serum or plasma anion gap 9.3 8 - 16 11/26/2017 [facility] Serum or plasma calcium measurement (mass/volume) Serum or plasma calcium measurement (mass/volume) 8.1 8.4 - 10.2 11/26/2017 [facility] Serum or plasma carbon dioxide, total measurement (moles/volume) Serum or plasma carbon dioxide, total measurement (moles/volume) 27 22 - 29 11/26/2017 [facility] Serum or plasma chloride measurement (moles/volume) Serum or plasma chloride measurement (moles/volume) 101 98 - 107 11/26/2017 [facility] Serum or plasma creatinine measurement (mass/volume) Serum or plasma creatinine measurement (mass/volume) 0.70 0.72 - 1.25 11/26/2017 [facility] Serum or plasma potassium measurement (moles/volume) Serum or plasma potassium measurement (moles/volume) 4.3 3.5 - 5.1 11/26/2017 [facility] Serum or plasma sodium measurement (moles/volume) Serum or plasma sodium measurement (moles/volume) 133 136 - 145 11/26/2017 [facility] Serum or plasma urea nitrogen measurement (mass/volume) Serum or plasma urea nitrogen measurement (mass/volume) 11 7 - 26 11/26/2017 [facility] Serum or plasma urea nitrogen/creatinine mass ratio Serum or plasma urea nitrogen/creatinine mass ratio 16 6 - 25 11/26/2017 [facility] Red Cell Distribution Width 14.4 11.7 - 14.4 11/26/2017 [facility] IM GRANULOCYTES % 1.1 0.0 - 1.0 11/26/2017 [facility] Absolute Immature Granulocyte (auto 0.12 0 - 0.1 11/26/2017 [facility] Blood culture Blood culture NO GROWTH AFTER 5 DAYS, FINAL REPORT 11/24/2017 [facility] Serum or plasma cholesterol in HDL measurement (mass/volume) Serum or plasma cholesterol in HDL measurement (mass/volume) 26 40 - 60 11/24/2017 [facility] Serum or plasma cholesterol in LDL measurement (mass/volume) Serum or plasma cholesterol in LDL measurement (mass/volume) 108 60 - 130 11/24/2017 [facility] Serum or plasma cholesterol measurement (mass/volume) Serum or plasma cholesterol measurement (mass/volume) 154 0 - 199 11/24/2017 [facility] Serum or plasma total cholesterol/cholesterol in HDL mass ratio Serum or plasma total cholesterol/cholesterol in HDL mass ratio 5.9 3.9 - 4.7 11/24/2017 [facility] Serum or plasma triglyceride measurement (mass/volume) Serum or plasma triglyceride measurement (mass/volume) 99 0 - 149 11/24/2017 [facility] Hemoglobin A1c Percent 7.5 4.0 - 7.0 11/24/2017 [facility] Blood platelets count by estimate (number/volume) Blood platelets count by estimate (number/volume) ADEQUATE 11/23/2017 [facility] Manual blood band neutrophils form/100 leukocytes Manual blood band neutrophils form/100 leukocytes 4 11/23/2017 [facility] Manual blood lymphocytes/100 leukocytes Manual blood lymphocytes/100 leukocytes 7 19 - 48 11/23/2017 [facility] Manual blood monocytes/100 leukocytes Manual blood monocytes/100 leukocytes 2 3.4 - 9.0 11/23/2017 [facility] Manual blood neutrophils/100 leukocytes Manual blood neutrophils/100 leukocytes 87 40 - 74 11/23/2017 [facility] Platelet morphology Platelet morphology NORMAL 11/23/2017 [facility] RBC morphology RBC morphology NORMAL 11/23/2017 [facility] Differential Total Cells Counted 100 11/23/2017 [facility] Clostridium difficile A and B toxin assay Clostridium difficile A and B toxin assay NEGATIVE NEGATIVE 11/22/2017 [facility] Stool calprotectin measurement (mass/mass) Stool calprotectin measurement (mass/mass) null 0 - 120 11/22/2017 [facility] Stool lactoferrin detection Stool lactoferrin detection NEGATIVE NEGATIVE 11/22/2017 [facility] Cytoplasmic antineutrophil cytoplasmic antibody (c-ANCA) titer Cytoplasmic antineutrophil cytoplasmic antibody (c-ANCA) titer null Neg:<1:20 11/21/2017 [facility] Serum atypical perinuclear neutrophil cytoplasmic antibody titer by immunofluorescence Serum atypical perinuclear neutrophil cytoplasmic antibody titer by immunofluorescence null Neg:<1:20 11/21/2017 [facility] Serum perinuclear neutrophil cytoplasmic antibody titer by immunofluorescence Serum perinuclear neutrophil cytoplasmic antibody titer by immunofluorescence null Neg:<1:20 11/21/2017 [facility] Plasma globulin measurement (mass/volume) Plasma globulin measurement (mass/volume) 4.6 2.3 - 3.5 11/21/2017 [facility] Serum or plasma alanine aminotransferase measurement (enzymatic activity/volume) Serum or plasma alanine aminotransferase measurement (enzymatic activity/volume) 40 0 - 55 11/21/2017 [facility] Serum or plasma albumin measurement (mass/volume) Serum or plasma albumin measurement (mass/volume) 2.2 3.5 - 5.0 11/21/2017 [facility] Serum or plasma albumin/globulin mass ratio Serum or plasma albumin/globulin mass ratio 0.5 0.8 - 2.0 11/21/2017 [facility] Serum or plasma alkaline phosphatase measurement (enzymatic activity/volume) Serum or plasma alkaline phosphatase measurement (enzymatic activity/volume) 104 40 - 150 11/21/2017 [facility] Serum or plasma protein measurement (mass/volume) Serum or plasma protein measurement (mass/volume) 6.8 6.5 - 8.1 11/21/2017 [facility] Serum or plasma total bilirubin measurement (mass/volume) Serum or plasma total bilirubin measurement (mass/volume) 1.4 0.2 - 1.2 11/21/2017 [facility] Aspartate Amino Transf (AST/SGOT) 55 5 - 34 11/21/2017 [facility] Influenza virus A and B antigen identification by immunofluorescence Influenza virus A and B antigen identification by immunofluorescence NEGATIVE NEGATIVE 11/20/2017 [facility] Bacterial blood culture Bacterial blood culture Organism: KLEBSIELLA PNEUMONIAE 11/20/2017 [facility] Manual blood metamyelocytes/100 leukocytes Manual blood metamyelocytes/100 leukocytes 5 0 - 0 11/20/2017 [facility] Lactic Acid Level 20.0 4.5 - 19.8 11/20/2017 [facility] Vital Signs Vital Sign Value Date Comments Source Encounters Location Location Details Encounter Type Encounter Number Reason For Visit Attending Provider ADM Date DC Date Status Source Discharged Inpatient [id number] TOSHIA MOREAU MD 11/20/2017 11/26/2017 [facility] Departed Emergency Room [id number] SCOTTIE ARROYO MD 05/18/2018 05/18/2018 [facility] Departed Emergency Room [id number] ARSH ALTMAN MD 08/25/2018 08/25/2018 [facility] Discharged Inpatient [id number] SAAD GUZMAN MD 10/21/2018 10/24/2018 [facility] Procedures Procedure Code Date Perfomer Comments Source EGD (esophagogastroduodenoscopy) [id number] 10/23/2018 [facility] US Abdomen limited [id number] 10/23/2018 [facility] US guided paracentesis [id number] 10/22/2018 [facility] Computed tomography of abdomen and pelvis with contrast [id number] 08/25/2018 [facility] EXCISION OF CECUM, ENDO, DIAGN [id number] 11/22/2017 [facility] EXCISION OF LEFT LARGE INTESTINE, ENDO, DIAGN [id number] 11/22/2017 [facility] EXCISION OF SIGMOID COLON, ENDO, DIAGN [id number] 11/22/2017 [facility] EXCISION OF TRANSVERSE COLON, ENDO, DIAGN [id number] 11/22/2017 [facility] EXCISION OF ASCENDING COLON, ENDO, DIAGN [id number] 11/22/2017 [facility] Computed tomography of abdomen and pelvis with contrast [id number] 11/20/2017 [facility]
[2018-12-22] MEDS ORDERED: ACETAMINOPHEN 1000 MG/100 ML IV STA (22:17)
[2018-12-22 22:45] LABS: BASOPHILS # (AUTO) 0.1 (0.0-0.1); BASOPHILS % 0.4 % (0.0-1.0); EOSINOPHILS % 0.2 % (0.0-6.0); HEMATOCRIT 27.5 % (38.2-49.6); HEMOGLOBIN 9.4 g/dL (14.0-18.0); LYMPHOCYTES # (AUTO) 0.6 (1.0-3.2); LYMPHOCYTES % 4.4 % (18.0-39.1); MEAN CORPUSCULAR HEMOGLOBIN 34.7 pg (28-32); MEAN CORPUSCULAR HGB CONC 34.2 g/dL (31-35); MEAN CORPUSCULAR VOLUME 101.5 fL (81-99); MONOCYTES # (AUTO) 1.7 (0.2-0.8); MONOCYTES % 13.2 % (4.4-11.3); NEUTROPHILS # (AUTO) 10.5 (2.1-6.9); NEUTROPHILS % 80.9 % (38.7-80.0); PLATELET COUNT 123 x10e3/uL (140-360); RED BLOOD COUNT 2.71 x10e6/uL (4.3-5.7); RED CELL DISTRIBUTION WIDTH 15.7 % (11.7-14.4)
[2018-12-22 22:56] LABS: INR 1.84; PROTHROMBIN TIME 22.7 seconds (11.9-14.5)
[2018-12-22 22:57] LABS: PARTIAL THROMBOPLASTIN TIME 44.9 seconds (23.8-35.5)
[2018-12-22 23:06] LABS: ALANINE AMINOTRANSFERASE 21 IU/L (0-55); ALBUMIN 1.9 g/dL (3.5-5.0); ALBUMIN/GLOBULIN RATIO 0.3 (0.8-2.0); ALKALINE PHOSPHATASE 143 IU/L (40-150); ANION GAP 14.4 mmol/L (8-16); BLOOD UREA NITROGEN 19 mg/dL (7-26); BUN/CREATININE RATIO 18 (6-25); CALCIUM 8.4 mg/dL (8.4-10.2); CARBON DIOXIDE 21 mmol/L (22-29); CHLORIDE 93 mmol/L (98-107); CREATINE KINASE 41 IU/L (30-200); CREATININE, SERUM 1.04 mg/dL (0.72-1.25); EST GLOMERULAR FILTRATION RATE > 60 ML/MIN (60-); GLUCOSE 181 mg/dL (74-118); POTASSIUM 4.4 mmol/L (3.5-5.1); SODIUM 124 mmol/L (136-145)
[2018-12-22 23:18] LABS: CLARITY,URINE CLOUDY (CLEAR); COLOR,URINE ORANGE (YELLOW); LEUKOCYTE ESTERASE ,URINE 2+ (NEGATIVE); NITRITE,URINE NEGATIVE (NEGATIVE)
[2018-12-22 23:19] LABS: BILIRUBIN,URINE 2+ (NEGATIVE); KETONES,URINE TRACE (NEGATIVE); PROTEIN,URINE DIPSTICK 1+ (NEGATIVE); URINE UROBILINOGEN 4 mg/dL (0.2 - 1)
[2018-12-22 23:42] LABS: BACTERIA,URINE MANY /HPF; EPITHELIAL CELLS,URINE FEW /LPF; WBC,URINE (MAN) >50 /HPF (0-5)
--- NOTE | 2018-12-22 23:45 | Diagnostic Imaging Report ---
EXAMINATION: CHEST SINGLE (NOT PORTABLE) INDICATION: sob COMPARISON: None FINDINGS: AP view TUBES and LINES: None. LUNGS: Lungs are well inflated. Left basilar scarring or atelectasis. Right basilar calcified granulomas. There is no evidence of pneumonia or pulmonary edema. PLEURA: No pleural effusion or pneumothorax. HEART AND MEDIASTINUM: The cardiomediastinal silhouette is unremarkable. BONES AND SOFT TISSUES: No acute osseous lesion. Soft tissues are unremarkable. UPPER ABDOMEN: No free air under the diaphragm. IMPRESSION: No acute thoracic abnormality. Signed by: DR. Lucius Beverly MD on 12/22/2018 11:42 PM
[2018-12-23] VITALS (12 sets, daily range): BP systolic 109–120; BP diastolic 67–77
[2018-12-23] MEDS ORDERED: LACTULOSE SYRUP 20 GM/30 ML UDC PO ONE
--- OUTSIDE RECORDS SUMMARY | 2018-12-23 00:09 | XMS REPORT | Clinical Summary ---
Author Author [facility] Address Unknown Phone Unavailable Care Team Providers Care Convention Services Manager Name Role Phone Jose E Gallegos PCP [...] Encounter 05/15/2018 Hospital Pre-Admission Testing Encounter after 12/22/2017 Social History Date Tobacco Use Types Packs/Day [...] Type Area Manufactur er 01/21/2020 [id number] / [id number] / Tissue Memb Amniogrft 2.5x2.0 Ophthalmol Left: Eye BIO-TISSUE Ag-[id number] - [id number] Implanted: Qty: 1 on 05/18/2018 by [...] METER Routine 05/18/2018 7:53 AM CDT after 12/22/2017 Results * POC-Glucose meter (05/18/2018 11:03 AM CDT) Only the most recent of 3 results within the time period is included. POC-Glucose Meter 79Comment: TESTED AT [facility] 70 - 110 mg/dL [facility] [address] [address] [facility] [address] Specimen Blood Performing Organization Address City/State/Zipcode Phone Number [facility] [address] [place] [address] [facility] after 12/22/2017 Insurance Payer Benefit Subscriber ID Type Phone Address Plan / Group [employer] xxxxxxxxxx [employer] E EXCHANGE
--- OUTSIDE RECORDS SUMMARY | 2018-12-23 00:09 | XMS REPORT | Clinical Summary ---
Author Author Darryl Chavezist Organization [facility] [employer] Address Unknown Phone Unavailable Care Team Providers Care Jail Guard Name Role Phone PCP Unavailable Allergies Not on File Medications Not on file Active Problems Not on file Encounters Care Team Description Date Type Specialty System, Provider Not In, Canceled (Scheduling Error) 04/23/2018 Lab Lab after 12/22/2017 Social History Date Tobacco Use [...] VACCINE 06/10/2018 08/27/2017 Results Not on fileafter 12/22/2017 Advance Directives Patient has advance care planning documents on file. For more information, saturnino green contact: Darryl Pearson [address] [place] [address]
[2018-12-23] MEDS ORDERED: DEXTROSE 50% SYRINGE 50 ML IV PRN (00:15)
[2018-12-23] MEDS ORDERED: ONDANSETRON HCL INJ 2MG/ML 2ML 2 MG/ML VIAL IV PRN (00:15)
[2018-12-23] MEDS ORDERED: LACTULOSE SYRUP 20 GM/30 ML UDC PO PRN (00:15)
[2018-12-23] MEDS: CEFTRIAXONE SOD 1 GM/NS 50 ML 50 ML IV SCH ×2 (00:34→23:47)
[2018-12-23] MEDS: SODIUM CHLORIDE 0.9% 1000ML 1,000 ML IV SCH ×2 (00:34→10:00)
[2018-12-23] MEDS ORDERED: PANTOPRAZOLE SO40 MG PO (01:50)
[2018-12-23] MEDS ORDERED: LACTULOSE20 GM/30 M PO (01:50)
[2018-12-23] MEDS ORDERED: METOPROLOL TART25 MG PO (01:50)
[2018-12-23] MEDS ORDERED: MIDODRINE HCL2.5 MG PO (01:50)
[2018-12-23] MEDS ORDERED: FUROSEMIDE40 MG PO (01:50)
[2018-12-23] MEDS ORDERED: SPIRONOLACTONE25 MG PO (01:50)
--- NOTE | 2018-12-23 02:34 | NUR ---
dr Lynn yoon came and did round. he ordered Flagyl 500 mg q 6 hr and give first dose now.
[2018-12-23] MEDS ORDERED: METRONIDAZOLE 500MG/NS 100ML 100 ML IV SCH (03:00)
--- NOTE | 2018-12-23 03:12 | NUR ---
daughter said that patient is allergic to Flagy; dr Lynn yoon notified, he ordered to discontinue Flagyl.
--- NOTE | 2018-12-23 03:15 | NUR ---
called and left a message to dr Denis or the manager continuous improvementground crew lines person's phone, patient complained of back pain, need order, awaiting for call back.
--- NOTE | 2018-12-23 03:29 | NUR ---
called and spoke with dr Denis, patient complained of pain; the MD ordered Tramadol 50 mg PO q 4 PRN also check ammonia level in am
[2018-12-23] MEDS ORDERED: TRAMADOL HCL 50 MG TAB PO PRN (03:30)
[2018-12-23 06:06] LABS: FOLATE 5.2 ng/mL (7.0-15.4)
--- NOTE | 2018-12-23 07:23 | NUR ---
pt resting in bed, no c/o pain or s/s distress. family at bedside.
[2018-12-23] MEDS: INSULIN REGULAR, HUMAN 100 UNIT/1 ML 3ML VIAL SQ SCH ×4 (08:14→21:41)
[2018-12-23 08:58] LABS: BASOPHILS % 0.1 % (0.0-1.0); EOSINOPHILS % 0.2 % (0.0-6.0); HEMATOCRIT 24.7 % (38.2-49.6); HEMOGLOBIN 8.4 g/dL (14.0-18.0); LYMPHOCYTES # (AUTO) 0.7 (1.0-3.2); LYMPHOCYTES % 7.4 % (18.0-39.1); MEAN CORPUSCULAR HEMOGLOBIN 34.7 pg (28-32); MEAN CORPUSCULAR VOLUME 102.1 fL (81-99); MONOCYTES # (AUTO) 1.1 (0.2-0.8); MONOCYTES % 11.8 % (4.4-11.3); NEUTROPHILS # (AUTO) 7.7 (2.1-6.9); NEUTROPHILS % 79.8 % (38.7-80.0); PLATELET COUNT 85 x10e3/uL (140-360); RED BLOOD COUNT 2.42 x10e6/uL (4.3-5.7); RED CELL DISTRIBUTION WIDTH 15.5 % (11.7-14.4)
[2018-12-23 09:14] LABS: ALANINE AMINOTRANSFERASE 20 IU/L (0-55); ALBUMIN 1.6 g/dL (3.5-5.0); ALBUMIN/GLOBULIN RATIO 0.3 (0.8-2.0); ALKALINE PHOSPHATASE 119 IU/L (40-150); ANION GAP 13.5 mmol/L (8-16); BLOOD UREA NITROGEN 20 mg/dL (7-26); BUN/CREATININE RATIO 23 (6-25); CALCIUM 8.1 mg/dL (8.4-10.2); CARBON DIOXIDE 21 mmol/L (22-29); CHLORIDE 95 mmol/L (98-107); CREATININE, SERUM 0.87 mg/dL (0.72-1.25); EST GLOMERULAR FILTRATION RATE > 60 ML/MIN (60-); GLUCOSE 178 mg/dL (74-118); POTASSIUM 4.5 mmol/L (3.5-5.1); SODIUM 125 mmol/L (136-145)
[2018-12-23] MEDS: LACTULOSE SYRUP 20 GM/30 ML UDC PO SCH ×3 (11:59→23:47)
[2018-12-23] MEDS ORDERED: PANTOPRAZOLE SOD 40 MG TABEC PO SCH (17:15)
[2018-12-23] MEDS: MIDODRINE 2.5 MG TAB PO SCH (17:45)
[2018-12-23] MEDS: METOPROLOL SUCCINATE 50 MG TAB XL PO SCH ×2 (17:56→18:17)
[2018-12-23] MEDS: GLIPIZIDE 2.5 MG TABCR PO SCH (17:57)
[2018-12-23] MEDS: METFORMIN HCL 500 MG TAB PO SCH (17:57)
[2018-12-23] MEDS: PHENAZOPYRIDINE HCL 100 MG TAB PO SCH (17:57)
[2018-12-23] MEDS: SPIRONOLACTONE 25 MG TAB PO SCH (17:57)
[2018-12-23] MEDS: FUROSEMIDE 20 MG TAB PO SCH (17:59)
--- NOTE | 2018-12-23 18:16 | History and Physical ---
PRIMARY CARE PROVIDER: Dr. Reyes Fontanez, although he has not seen him yet. CHIEF COMPLAINT: Altered mental status. HISTORY OF PRESENT ILLNESS: Mr. Mcelroy is a 58-year-old gentleman with advanced alcohol-induced cirrhosis with previous episodes of hepatic encephalopathy who presents with altered mental status, delirium. He is confused and disoriented, consistent with hepatic encephalopathy. REVIEW OF SYSTEMS: Unable to obtain at the time of admission due to his altered mental state. PAST MEDICAL HISTORY: Significant for alcohol-induced cirrhosis and type 2 diabetes. He has had a hernia repair and he has a lipoma removed from his right eye socket. REGULAR MEDICATIONS: Include furosemide either 40 or 80 mg daily (it is unclear), glipizide 2.5 mg daily, lactulose 20 g 3 times a day, lovastatin 10 mg daily, metformin 500 mg daily, metoprolol succinate 50 mg daily, metoprolol tartrate 25 mg for elevated heart rate, midodrine 5 mg 3 times a day, either omeprazole or Protonix 40 mg twice daily before meals, spironolactone 200 mg daily or 50 mg daily (both are on his medication list), and tramadol as needed for pain. ALLERGIES: HE HAS A STATED ALLERGY TO METRONIDAZOLE AND CIPROFLOXACIN. FAMILY HISTORY: Unremarkable. There is some scattered diabetes in his relatives. SOCIAL HISTORY: The patient is . He is bilingual although Urdu is his primary language. He does not smoke. He quit drinking a couple years ago when he found out he had cirrhosis. He does not use illegal drugs and he is generally bedbound. He can ambulate but usually too weak to get around much. He does require assistance and supervision by his family. PHYSICAL EXAM PSYCHIATRIC: He is awake and alert, somewhat disoriented and confused. He is in no acute distress. He has a normal body habitus. VITAL SIGNS: Blood pressure 118/72, pulse 92 and regular, respiratory rate 14. O2 sat 100%. Temperature 97.4. He had a T-max overnight of 100.0. HEENT: His head is atraumatic. His eyes are icteric. His oropharynx is clear. NECK: Is supple with no mass or thyromegaly. LYMPHATIC SYSTEM: He has no palpable cervical, axillary or inguinal adenopathy. CARDIOVASCULAR: His heart has a regular rate and rhythm without murmur or extra heart sound. He has no carotid bruit. He has no peripheral edema. Palpable dorsal pedal pulses. RESPIRATORY: Lungs are clear to auscultation and percussion with normal respiratory effort. GASTROINTESTINAL: His abdomen is soft. There is mild to moderate ascites. He has normal bowel sounds present. No hepatosplenomegaly or masses are palpable. CUTANEOUS: His skin is warm and dry to touch. Somewhat jaundiced. He has some scattered ecchymosis, but otherwise no lesions or skin breakdown. MUSCULOSKELETAL: His joints are in normal alignment without erythema or swelling. He has no calf tenderness. NEUROLOGIC: Exam is nonfocal with intact cranial nerves and no motor or sensory deficits. DIAGNOSTIC STUDIES: Chest x-ray shows no acute disease. Clear lung quiroz. His flu screen is negative. His alcohol screen is negative. His UA shows greater than 50 white cells, 6 to 10 red cells, many bacteria. His troponin is 0.004. Lactic acid 36.4. Ammonia 159, has come down to 112 with lactulose overnight. B12 881. Folate 5.2. Albumin 1.6. His chemistry shows normal electrolytes, CO2 21, creatinine 0.87, BUN 20 for a normal GFR, calcium 8.1, glucose 178. Transaminases are normal, alk phos is normal at 119, total bilirubin is 5.4. His CBC shows a white count of 9.65 with 80% neutrophils, hemoglobin is 8.4, hematocrit 24.7. It was 9.4 on admission. His platelet count is 85,000. His pro time is 22.7 with an INR of 1.84, PTT 44.9. The patient is on no anticoagulation. IMPRESSIONS AND PLANS 1. Altered mental status due to hepatic encephalopathy. The patient has been started on lactulose q.6 hours and intravenous Flagyl was started as well. 2. Alcohol-induced cirrhosis. The patient no longer drinks. He is on Lasix and spironolactone. 3. Ascites which is mild to moderate. Again, the patient takes Lasix and spironolactone regularly. He has a regular outpatient paracentesis about every 2 weeks. There is no need for paracentesis at this time. 4. Coagulopathy due to the cirrhosis. Will monitor. Patient has no surgical procedures pending. 5. Thrombocytopenia due to cirrhosis. Again will monitor. At this time, the patient has no need for surgery so no need for platelet transfusion. 6. Type 2 diabetes. Seems fairly well controlled. Will continue metformin, glipizide and add sliding scale insulin. 7. Urinary tract infection. Will treat with intravenous Rocephin pending culture results. 8. Macrocytic anemia. Will check a fecal occult blood test and iron levels. His B12 and folic acid level are normal. 9. For prophylaxis, the patient will be on Protonix for gastrointestinal prophylaxis and sequential compression devices for deep venous thrombosis prophylaxis. Job#: [id number] [facility]
--- NOTE | 2018-12-23 18:18 | NUR ---
per pt daughter, pt doesnt take metoprolol unless HR >120. at home his bp and hr fluctuates and "when he gets better is when his HR goes to 180s, so his PCP said not to give unless HR >120". educated i would not admin rx and would document as refused, with reason.
[2018-12-23] MEDS: ACETAMINOPHEN/CODEINE 300MG - 30MG TAB PO PRN ×2 (18:56→23:48)
--- NOTE | 2018-12-23 19:00 | NUR ---
Report received from Kalani. Patient alert resting on bed. Denied pain and no SOB. No respiratory distress noted. Bed in lower position,locked.Call [place] within reach. Family in the room. Will continue to monitor.
[2018-12-24] VITALS (8 sets, daily range): BP systolic 104–141; BP diastolic 71–93
[2018-12-24] MEDS ORDERED: ACETAMINOPHEN/CODEINE 300MG - 30MG TAB PO ONE (02:00)
--- NOTE | 2018-12-24 02:30 | NUR ---
round the patient at this time.
--- NOTE | 2018-12-24 02:49 | NUR ---
Patient had no urination since 1899. Assisted to check bladder scan,more than 150ml urine found in bladder.Talked to MD Leighton said wait for couple of hour might be patient will urinate if not do straight catheter.
--- NOTE | 2018-12-24 04:49 | NUR ---
Patient assisted to go to bathroom with using walker,had large liquid yellow BM and pee at this time.
[2018-12-24] MEDS: LACTULOSE SYRUP 20 GM/30 ML UDC PO SCH ×4 (05:28→17:29)
[2018-12-24 05:31] LABS: BASOPHILS % 0.3 % (0.0-1.0); EOSINOPHILS # (AUTO) 0.1 (0.0-0.4); EOSINOPHILS % 1.5 % (0.0-6.0); HEMATOCRIT 26.3 % (38.2-49.6); HEMOGLOBIN 8.9 g/dL (14.0-18.0); LYMPHOCYTES # (AUTO) 1.3 (1.0-3.2); LYMPHOCYTES % 13.7 % (18.0-39.1); MEAN CORPUSCULAR HEMOGLOBIN 34.2 pg (28-32); MEAN CORPUSCULAR HGB CONC 33.8 g/dL (31-35); MEAN CORPUSCULAR VOLUME 101.2 fL (81-99); MONOCYTES # (AUTO) 1.6 (0.2-0.8); MONOCYTES % 17.2 % (4.4-11.3); NEUTROPHILS # (AUTO) 6.3 (2.1-6.9); NEUTROPHILS % 66.5 % (38.7-80.0); PLATELET COUNT 114 x10e3/uL (140-360); RED CELL DISTRIBUTION WIDTH 15.5 % (11.7-14.4)
[2018-12-24 05:57] LABS: IRON 62 ug/dL (65-175); TRANSFERRIN < 70 mg/dL (174-364)
[2018-12-24 06:02] LABS: ALANINE AMINOTRANSFERASE 22 IU/L (0-55); ALBUMIN 1.8 g/dL (3.5-5.0); ALBUMIN/GLOBULIN RATIO 0.3 (0.8-2.0); ALKALINE PHOSPHATASE 132 IU/L (40-150); ANION GAP 15.2 mmol/L (8-16); BLOOD UREA NITROGEN 20 mg/dL (7-26); BUN/CREATININE RATIO 19 (6-25); CALCIUM 8.6 mg/dL (8.4-10.2); CARBON DIOXIDE 20 mmol/L (22-29); CHLORIDE 96 mmol/L (98-107); CREATININE, SERUM 1.03 mg/dL (0.72-1.25); EST GLOMERULAR FILTRATION RATE > 60 ML/MIN (60-); GLUCOSE 151 mg/dL (74-118); POTASSIUM 4.2 mmol/L (3.5-5.1); SODIUM 127 mmol/L (136-145)
[2018-12-24 06:19] LABS: FREE T4 (FREE THYROXINE) 0.79 ng/dL (0.9-1.8); THYROID STIMULATING HORMONE 1.797 uIU/mL (0.350-4.940)
--- NOTE | 2018-12-24 07:02 | NUR ---
Report given to félix Parker. Addendum: 12/24/18 at 0704 by Nivia Castillo RN andrew simmons
--- NOTE | 2018-12-24 07:04 | NUR ---
Report given to oncoming ELLA Uriarte.
[2018-12-24] MEDS: INSULIN REGULAR, HUMAN 100 UNIT/1 ML 3ML VIAL SQ SCH ×4 (07:30→21:00)
[2018-12-24] MEDS ORDERED: ASPIRIN 81 MG CHEW TAB ONE (07:39)
[2018-12-24] MEDS: SPIRONOLACTONE 25 MG TAB PO SCH (08:39)
[2018-12-24] MEDS: FUROSEMIDE 20 MG TAB PO SCH (08:39)
[2018-12-24] MEDS: PHENAZOPYRIDINE HCL 100 MG TAB PO SCH ×2 (08:39→16:24)
[2018-12-24] MEDS: PANTOPRAZOLE SOD 40 MG TABEC PO SCH (08:39)
[2018-12-24] MEDS: MIDODRINE 2.5 MG TAB PO SCH ×3 (08:39→16:24)
[2018-12-24] MEDS: METFORMIN HCL 500 MG TAB PO SCH (08:39)
[2018-12-24] MEDS: GLIPIZIDE 2.5 MG TABCR PO SCH (08:39)
[2018-12-24] MEDS: RIFAXIMIN 550 MG TABLET PO SCH ×2 (08:40→16:24)
--- NOTE | 2018-12-24 08:49 | NUR ---
pt resting in bed, family at bedside. vs stable, no c/o pain or s/s distress. will continue to monitor.
[2018-12-24 08:51] LABS: EOSINOPHILS % (MANUAL) 1 % (0-7); LYMPHOCYTES % (MANUAL) 12 % (19-48); MONOCYTES % (MANUAL) 7 % (3.4-9.0); NEUTROPHILS % (MANUAL) 80 % (40-74)
[2018-12-24 08:52] LABS: PLATELET ESTIMATE SLIGHTLY DECREASED; RBC MORPHOLOGY COMMENT NORMAL
[2018-12-24 08:53] LABS: HYPOCHROMASIA SLIGHT
--- NOTE | 2018-12-24 12:12 | NUR ---
pt not eating, "not feeling well today" per daughter. refused insulin at this time. psych PA on unit.
--- NOTE | 2018-12-24 14:40 | NUR ---
Nutrition Intervention Note RD Recommendation(s) for Physician: -Continue low sodium/ ADA diet as ordered -Rec Glucerna BID to promote protein-calorie intake -Encourage PO and hydration The patient meets criteria for MODERATE protein-calorie malnutrition. Plan of Care: RD following, monitoring for tolerance and adequacy, ONS rec Nutrition reason for involvement: RN consult poor PO RD Assessment 12/24 Chart reviewed. Pt was admitted for AMS and delirium. Visited pt in the room. Daughter presented on bedside to provide hx. Per daughter, pt has had poor appetite for a long period of time. Pt often complained of feeling full after a few bites of foods. Family has been giving him Ensure twice a day at home when needed. Today, pt only ate a few bites of eggs for breakfast. Pt complained some discomfort due to abdominal distention but denied any nausea or vomiting. No chewing or swallowing difficulty reported. Daughter believed that pt has lost ~20lbs in the last few months. Pt has some physical signs of muscle and fat loss upon NFPA. RD provided education on diet related to cirrhosis and fluids restriction. Will continue to monitor and follow. Principal Problems/Diagnoses: Altered mental status due to hepatic encephalopathy, alcohol-induced cirrhosis, ascites which is mild to moderate PMH: alcohol-induced cirrhosis and type 2 diabetes GI: abdomen soft, round, flatus present, LBM 12/24 Skin: no pressure wound noted Labs: (12/24) Na 127 L, Glucose 220H, ammonia 149 H Meds: protonix, glucophage, glipizide, lasix Ht: 67in Wt: 157lb BMI: 24.6kg/m2 IBW: 148lb Malnutrition Evaluation (12/24) The patient meets criteria for MODERATE protein-calorie malnutrition. Energy intake: <75% of estimated energy requirements for >3 months Weight loss: >10% in 6 months (Chronic) Fat loss: Moderate loss of fat over triceps, some protrusion of clavicle Muscle loss: Moderate slight depression of temporal, protrusion of acromion process Supporting Evidence: Fluid accumulation: mild to moderate ascites Functional Status: unable to evaluate Nutrition Prescription (Diet Order): low sodium/ ADA diet Estimated Nutritional Needs: Calories: 1775 2130kcal (25-30kcal/kg/d) Weight used: current BW Protein: 71 107g (1-1.5g/kg/d) Weight used: current BW Diet Adequacy: Not meeting calorie needs, Not meeting protein needs Diet Education Needs Assessment: Diet education indicated, family is agreeable with plan. Learner(s): family Time spent: 20minutes Barriers: n/a Cultural/Language Modifications: No cultural/language modifications noted. Readiness: acceptance Method: explanation, handout Topics: cirrhosis nutrition therapy, fluids restriction Understanding/Compliance: fair compliance expected, needs reinforcement, all questions have been answered Nutrition Care Level: mod Nutrition Diagnosis: Malnutrition related to chronic illness as evidenced by poor PO, weight loss and fat/muscle loss. Goal: Patient will meet 75-100% of estimated needs by follow up Progress: N/A Interventions: Mineral-modified diet, Commercial beverage Monitoring/Evaluation: Total energy intake, Total protein intake, Modified diet, Liquid supplement, Weight change Signed: Leah Mei MS, RD, LD
--- NOTE | 2018-12-24 14:55 | Diagnostic Imaging Report ---
Examination: Limited abdominal ultrasound. Clinical indication: Evaluate for ascites. Comparison examination: Ultrasound-guided paracentesis 12/17/2018. Technique: Limited sonographic evaluation of all 4 abdominal quadrants was performed. Findings: See impression Impression: Diffuse small volume ascites, highest concentration in the right upper quadrant. Signed by: Dr. Phil Motley M.D. on 12/24/2018 2:52 PM
--- NOTE | 2018-12-24 15:11 | NUR ---
per Satinder, psych PA. pt meets criteria to have family take over POA for medical/financial decisions dt intermittent ams. has paperwork, stated Dr Lima has to see pt before final decision and ppw can be done. Veronica PIEDRA on unit, updated to hold possible dc tomorrow until psych rounds. Veronica PIEDRA aware of abd US also. pt appears more fatigued and expressing feelings of depression to family today. not eating much and refusing PT. will continue to monitor. 5 family members at bedside at this time.
--- NOTE | 2018-12-24 15:53 | NUR ---
PT FAMILY SIGNED CHOICE FOR [facility] TO RETURN HOME WITH SERVICES. [facility] WILL UPDATE
--- NOTE | 2018-12-24 17:15 | NUR ---
pt daughters asking about new psych med, none listed in orders or chart. per Satinder CRESPO, will be ordering remeron for 9pm and put order in herself shortly. ed pt and family.
--- NOTE | 2018-12-24 19:40 | Consultation ---
DATE OF CONSULTATION: December 24, 2018 PSYCHIATRIC CONSULTATION HISTORY OF PRESENTING ILLNESS: The patient is a 58-year-old male admitted to the hospital for hepatic encephalopathy, hyponatremia and UTI. Psych consultation is called to evaluate patient's mood and competency. As per the medical record, patient has history of advanced alcohol-induced cirrhosis and a history of hepatic encephalopathy. He was found to have altered mental status and delirium, confusion. Patient also has history of diabetes. Upon evaluation today, patient is found to be in the room. He is lying on the bed, appears to have some psychomotor retardation, does not move around. His voice is soft. He is oriented to self, situation and place but does not know the current year, thinks it is 2011. He appears to be very depressed and isolative and withdrawn. His depression is due to his health issues that affected his ability to provide for his family as well. Patient reports intermittent hallucination. He reports passive wish and suicidal ideation but no plan. Patient reports poor sleep due to pain and complains of poor appetite. Patient's daughter is in the room. She reports that she has medical [id number]. She claims that she and other family members have been helping the father managing the finances due to his health issues and mental status. She claims that patient has been hospitalized approximately 15 times last year due to his health. His memory has been worsened since November of 2017. He does have intermittent confusion and worsened due to his ammonia level. Daughter reports that patient has been very depressed at times, refuses to take his medication at home. Patient's daughter requesting to take over patient's disability finances. Patient agrees that he needs help as he is unable to write and because he is too weak and that he wants his daughter to take over his finances. PAST PSYCHIATRIC HISTORY: Patient denies past psychiatric history. He denies past suicide attempt. Daughter reports this patient is a chronic alcohol user for many decades but has quit since 2017. He denies any drug use. FAMILY HISTORY: Denies. SOCIAL HISTORY: Patient lives with his and his daughter. MENTAL STATUS EXAMINATION: The patient is a middle-aged male. He is alert, awake and oriented to self and situation but not to year. He is calm, cooperative, with some psychomotor retardation. He is having depression with suicidal ideation but without any plan. He denies any hallucination at this time. Thought process is concrete. No delusions elicited. Insight and judgment are fair. CURRENT MEDICATION 1. Lactulose. 2. Rifaximin. 3. Midodrine. 4. Pyridium. 5. Protonix. 6. Spironolactone. 7. Metformin. 8. Glipizide. 9. Furosemide. 10. Tylenol No. 3 p.r.n. 11. Ceftriaxone. 12. Tramadol p.r.n. 13. Insulin. 14. Dextrose. 15. Ondansetron. CURRENT LAB: Sodium 127, potassium 4.2, chloride 96, CO2 20, BUN 20, creatinine 1.03. WBC 9.46, RBC 2.62, hemoglobin 8.9, hematocrit 26.3, platelets 114. ASSESSMENT 1. Major depressive disorder, single episode, moderate to severe. 2. Unspecified psychosis. PLAN 1. Add Remeron 7.5 mg p.o. nightly. 2. Discussed with family members. 3. Discussed with nursing staff. 4. Start sitter. 5. Monitor for mood. Thank you for this consultation. Dictated by: ZAK Rizo Job#: [id number] EV
[2018-12-24] MEDS ORDERED: MIRTAZAPINE 15 MG TAB PO SCH (21:00)
--- NOTE | 2018-12-24 22:00 | NUR ---
Patient assisted to used bedside commode,had medium soft yellow BM. Assisted to cleaned and put him back to the bed.Patient tolerated well. Will continue to monitor. Addendum: 12/25/18 at 0222 by Nivia Castillo RN wrong patient charting
--- NOTE | 2018-12-24 22:56 | NUR ---
Report received from Med-veterinary surgery technicianELLA Acevedo.Patient transferred from med-surg by bed at 1944. Patient alert/oriented x3.Denied pain and no SOB. No respiratory distress noted. Patient had continuing bladder irrigation, lots of clots with bright red urine found in bag. Assisted to emptying catheter bag with ELLA Farr. Patient had continuing 2lierts oxygen via nasal canula,Spo2 mainatained 98%.V/S WNL. Patient instructed to call fro help as needed.Bed in lower position,locked. call [place] within reach. Addendum: 12/25/18 at 0221 by Nivia Castillo RN wrong charting
[2018-12-25] MEDS: LACTULOSE SYRUP 20 GM/30 ML UDC PO SCH ×3 (00:04→12:41)
[2018-12-25] MEDS: CEFTRIAXONE SOD 1 GM/NS 50 ML 50 ML IV SCH (00:04)
[2018-12-25 00:20] VITALS: BP 108/74
--- NOTE | 2018-12-25 00:45 | NUR ---
Dr. Maguire round the patient.
[2018-12-25 04:18] VITALS: BP 112/74
[2018-12-25 05:20] LABS: BASOPHILS % 0.5 % (0.0-1.0); EOSINOPHILS # (AUTO) 0.2 (0.0-0.4); EOSINOPHILS % 2.5 % (0.0-6.0); HEMATOCRIT 24.6 % (38.2-49.6); HEMOGLOBIN 8.5 g/dL (14.0-18.0); LYMPHOCYTES # (AUTO) 1.3 (1.0-3.2); LYMPHOCYTES % 19.8 % (18.0-39.1); MEAN CORPUSCULAR HEMOGLOBIN 34.1 pg (28-32); MEAN CORPUSCULAR HGB CONC 34.6 g/dL (31-35); MEAN CORPUSCULAR VOLUME 98.8 fL (81-99); MONOCYTES % 15.5 % (4.4-11.3); NEUTROPHILS % 61.1 % (38.7-80.0); PLATELET COUNT 111 x10e3/uL (140-360); RED BLOOD COUNT 2.49 x10e6/uL (4.3-5.7); RED CELL DISTRIBUTION WIDTH 15.4 % (11.7-14.4)
[2018-12-25 05:35] LABS: INR 1.68; PROTHROMBIN TIME 21.1 seconds (11.9-14.5)
[2018-12-25 05:47] LABS: ALANINE AMINOTRANSFERASE 18 IU/L (0-55); ALBUMIN 1.6 g/dL (3.5-5.0); ALKALINE PHOSPHATASE 131 IU/L (40-150); BILIRUBIN,DIRECT 2.4 mg/dL (0.0-0.5); BLOOD UREA NITROGEN 20 mg/dL (7-26); BUN/CREATININE RATIO 21 (6-25); CALCIUM 8.4 mg/dL (8.4-10.2); CARBON DIOXIDE 22 mmol/L (22-29); CHLORIDE 103 mmol/L (98-107); CREATININE, SERUM 0.97 mg/dL (0.72-1.25); EST GLOMERULAR FILTRATION RATE > 60 ML/MIN (60-); GLUCOSE 123 mg/dL (74-118); SODIUM 132 mmol/L (136-145)
[2018-12-25 05:51] LABS: B-TYPE NATRIURETIC PEPTIDE2 59.8 pg/mL (0-100)
--- NOTE | 2018-12-25 07:21 | NUR ---
Report given to AM ELLA Dodson,walking round done.
[2018-12-25] MEDS: INSULIN REGULAR, HUMAN 100 UNIT/1 ML 3ML VIAL SQ SCH ×3 (07:30→16:30)
[2018-12-25] MEDS: PANTOPRAZOLE SOD 40 MG TABEC PO SCH ×2 (07:30→09:26)
[2018-12-25 08:00] VITALS: BP 114/69
[2018-12-25] MEDS: GLIPIZIDE 2.5 MG TABCR PO SCH ×2 (09:00→09:26)
[2018-12-25] MEDS: METFORMIN HCL 500 MG TAB PO SCH ×2 (09:00→09:26)
[2018-12-25 09:12] VITALS: BP 114/69
[2018-12-25] MEDS: PHENAZOPYRIDINE HCL 100 MG TAB PO SCH (09:26)
[2018-12-25] MEDS: SPIRONOLACTONE 25 MG TAB PO SCH (09:26)
[2018-12-25] MEDS: FUROSEMIDE 20 MG TAB PO SCH (09:26)
[2018-12-25] MEDS: RIFAXIMIN 550 MG TABLET PO SCH (09:26)
[2018-12-25] MEDS: MIDODRINE 2.5 MG TAB PO SCH ×2 (09:26→12:42)
--- NOTE | 2018-12-25 09:26 | NUR ---
SPOKE TO RADIOLOGY STATES PT MAY EAT, UNKNOWN AT THIS TIME IF PARACENTESIS CAN BE DONE THIS DAY. PT SET UP FOR OUTPATIENT FOLLOW UP ON FRIDAY ALREADY, RADIOLOGY NURSE STATES DIRECTOR OF DEPT WORKING ON IT AND WILL TALK TO SUSAN. JU PIEDRA ROUNDING AT THIS TIME MADE AWARE.
[2018-12-25] MEDS ORDERED: XIFAXAN550 MG PO (09:38)
[2018-12-25] MEDS ORDERED: LACTULOSE20 GM/30 M PO (09:38)
[2018-12-25] MEDS ORDERED: MIRTAZAPINE15 MG PO (09:38)
[2018-12-25] MEDS ORDERED: ALDACTONE25 MG PO (09:38)
[2018-12-25] MEDS ORDERED: PROTONIX40 MG/ML PO (09:38)
[2018-12-25] MEDS ORDERED: CEFUROXIME500 MG PO (09:43)
[2018-12-25 12:00] VITALS: BP 114/76
--- NOTE | 2018-12-25 12:11 | NUR ---
Dr. pereyra here to evaluate patient. After examination, md is not willing to declare patient mentally incompetent. Daughter verbalized understanding.
[2018-12-25 16:00] VITALS: BP 107/73
--- NOTE | 2018-12-25 16:34 | NUR ---
HOSPICE HERE FOR PATIENT AT THIS TIME, FAMILY IN ROOM
--- NOTE | 2018-12-26 05:55 | Discharge Summary ---
ADMITTING DIAGNOSES 1. Altered mental status due to hepatic encephalopathy. 2. Alcohol-induced cirrhosis. 3. Ascites. 4. Coagulopathy due to cirrhosis. 5. Thrombocytopenia due to cirrhosis. 6. Type 2 diabetes. 7. Urinary tract infection. 8. Microcytic anemia. DISCHARGE DIAGNOSES 1. Altered mental status due to hepatic encephalopathy. 2. Alcohol-induced cirrhosis. 3. Ascites. 4. Coagulopathy due to cirrhosis. 5. Thrombocytopenia due to cirrhosis. 6. Type 2 diabetes. 7. Urinary tract infection. 8. Microcytic anemia. 9. Escherichia coli of urine. 10. Hyponatremia. 11. Rule out flu. 12. Gastrointestinal bleed. HISTORY: The patient has a history of alcohol-induced cirrhosis, type 2 diabetes. SURGICAL HISTORY: Hernia repair and lipoma removed from his right eye socket. HOSPITAL COURSE: A 58-year-old male presents with advanced alcohol-induced cirrhosis with previous episodes of hepatic encephalopathy, who presents with AMS and delirium. On admission, the patient was started on lactulose q. 6h. and IV Flagyl. GI was consulted. Patient also resumed his Lasix and Aldactone. He usually does an outpatient paracentesis about every 2 weeks. Patient's chest x-ray on admission was negative. Ultrasound of the abdomen showed diffuse small volume ascites, highest concentration in the right upper quadrant. Urine culture came back positive for E. coli. Sodium on admission was 124, it trended up on its own throughout hospitalization. Patient's flu was negative, but stool for blood was positive. Patient's hemoglobin remained stable. He did not require any transfusions. Psych was then consulted. Patient was started on Remeron nightly. After long discussion with the family, they decided to put off the TIPS procedure for a later date, but did want hospice on discharge as he lives at home with family and at times he is a lot to handle. The patient will discharge home with lactulose, Remeron, Protonix, Xifaxan, and Aldactone. Patient and family understand discharge instructions and agreed to plan. Vital signs stable. Patient afebrile. Dictated by: Veronica Sheppard NP Job#: [id number] [place]
--- NOTE | 2018-12-27 16:29 | Progress Note ---
DATE: December 25, 2018 PSYCHIATRIC PROGRESS NOTE SUBJECTIVE: Patient evaluated and events noted. Patient is in the room with his daughter who is ANGELINA and his . Patient is alert, awake and oriented to self and place, but not to year. He thinks the current year is 2011. He reports having moderately less depressed, less anxious. He denies any suicidal ideation. He denies any hallucination. He denies any side effects from the medication. Daughter states that patient is doing better since the medication. Remeron was given yesterday and he slept more and he ate more. Dr. Lima came in for the patient as well. He had a long discussion with the daughter and informed the daughter at this time patient is aware and not answer questions, make needs known. His confusion is intermittent, but is not permanent. At this time, Dr. Lima believes the patient has capacity to make decision regarding his disability and finances. ASSESSMENT 1. Major depressive disorder, single episode, [id number]. 2. History of alcohol abuse. PLAN 1. Discontinue sitter. 2. Continue Remeron 7.5 mg p.o. at bedtime. 3. Based on this clinical assessment, patient does have capacity to make decision regarding his disability and finances. 4. Discussed with nursing staff and family members and patient. 5. Patient is cleared from psychiatric standpoint. Dictated by: ZAK Rizo Job#: [id number] [place]ES[place]
== END 2018-12-25 16:40 | disposition hospice, home (50) | DRG 433 ==
LOC: ER 22:04 → ERHOLD 12-23 00:05 → IMCU 12-23 00:57
PROVIDERS: ADMIT Internal Medicine; ATTEND Internal Medicine
DX: K70.40 Alcoholic hepatic failure without coma (principal); D68.4 Acquired coagulation factor deficiency; N39.0 Urinary tract infection, site not specified; E87.1 Hypo-osmolality and hyponatremia; K92.2 Gastrointestinal hemorrhage, unspecified; F32.1 Major depressive disorder, single episode, moderate; K70.31 Alcoholic cirrhosis of liver with ascites; D69.59 Other secondary thrombocytopenia; E11.9 Type 2 diabetes mellitus without complications; D50.9 Iron deficiency anemia, unspecified; B96.20 Unspecified Escherichia coli [E. coli] as the cause of diseases classified elsewhere; F10.21 Alcohol dependence, in remission; K21.9 Gastro-esophageal reflux disease without esophagitis; R41.3 Other amnesia; F29 Unspecified psychosis not due to a substance or known physiological condition
CPT/HCPCS: 36415; 71045; 76705; 80048; 80053; 80076; 80320; 81001; 82140; 82270; 82550; 82553; 82607; 82746; 82948; 83540; 83605; 83880; 84439; 84443; 84466; 84484; 85025; 85045; 85610; 85730; 87040; 87071; 87086; 87186; 87205; 87400; 93005; 96360; 96372; 97139; 99284; J0696; J7030

== ENCOUNTER → 2019-01-05 | Day surgery (SDC) | payer OTHER ==
[~2019-01-05] VITALS: Ht 170.2 cm; Wt 69.4 kg
[~2019-01-05] MED LIST changes: +CEFAZOLIN SOD 1 GM VIAL ONE; +CEFUROXIME500 MG PO; +FENTANYL CITRATE/PF 100MCG/2 ML INJ ONE; +FUROSEMIDE40 MG PO; +HALOPERIDOL5 MG/1 ML SL; +LACTULOSE20 GM/30 M PO; +LIDOCAINE 1% W/EPINEPHRINE 20 ML VIAL ONE; +LIDOCAINE HCL 1% LOCAL INJ 20 ML VIAL ONE; +METHADONE HCL5 MG PO; +METOPROLOL TART25 MG PO; +MIDAZOLAM HCL 2 MG/2 ML VIAL ONE; +MIDODRINE HCL2.5 MG PO; +MIRTAZAPINE15 MG PO; +MORPHINE SULF1 MG/ML SL; +NYSTATIN15 G1 TOP; +NYSTOP60 GM TOP; +PANTOPRAZOLE SO40 MG PO; +PROTONIX40 MG/ML PO; +SODIUM CHLORIDE 0.9% 1000ML 2,000 ML ONE; +SPIRONOLACTONE PO; +TEMAZEPAM15 MG PO; +TYLENOL WITH C1 EACH PO; +XIFAXAN550 MG PO
--- OUTSIDE RECORDS SUMMARY | 2019-01-05 12:32 | XMS REPORT | Continuity of Care Document ---
Author Author [facility] Interface Address Unknown Phone Unavailable Problems Problem Status Onset Date Classification Date Reported Comments Source ACUTE LOWER UTI Active 10/30/2018 [facility] GENERAL WEAKNESS Active 10/30/2018 [facility] OTHER Active 10/05/2018 [facility] ABDOMINAL EXTENDED/SHORTNESS OF BREATH Active 09/29/2018 [facility] ACUTE ABDOMINAL PAIN, ASCITES, SIRS (SYS Active 09/29/2018 [facility] Colitis, acute Active Problem 05/18/2018 [facility] Hypokalemia Active Problem 10/25/2018 [facility] Hyponatremia Active Problem 10/25/2018 [facility] Alcoholic cirrhosis of liver with ascites Active Problem 10/25/2018 [facility] Colitis, acute Active Problem 10/25/2018 [facility] GI Active Problem 10/25/2018 [facility] UNSPECIFIED ABDOMINAL PAIN Active [facility] OTHER ASCITES Active [facility] SIRS OF NON-INFECTIOUS ORIGIN W/O ACUTE Active [facility] URINARY TRACT INFECTION, SITE NOT SPECIF Active [facility] Medications Medication Details Route Status Patient Instructions Ordering Provider Order Date Source Spironolactone 25 Mg Tablet, 25 Mg Oral Daily Active 10/24/2018 [facility] Benazepril/Hydrochlorothiazide (Benazepril-Hctz 20-12.5 Mg Tab) 1 Each Tablet, 1 Tab Oral Daily Active 10/21/2018 [facility] Ciprofloxacin Hcl (Cipro) 500 Mg Tablet, 500 Mg Oral Every 12 Hours Active 10/21/2018 [facility] Ferrous Sulfate 325 Mg Tablet, 325 Mg Oral Daily Active 10/21/2018 [facility] Metronidazole (Flagyl) 250 Mg Tablet, 500 Mg Oral Twice A Day Active 10/21/2018 [facility] Len/Polymyx B Sulf/Dexameth (Maxitrol Eye Ointment) 3.5 Gm Oint...g., 0.25 Inch Left Eye Twice A Day Active 10/21/2018 [facility] Ondansetron (Zofran Odt) 4 Mg Tab.rapdis, 4 Mg Sublingual Every 6 Hours as needed for Nausea Active 10/21/2018 [facility] Aspirin (Aspir 81) 81 Mg Tablet., 81 Mg Oral Daily Active 08/25/2018 [facility] Loratadine 10 Mg Tablet, 10 Mg Oral Daily Active 08/25/2018 [facility] Metoprolol Succinate 50 Mg Tab.er.24h Daily Active [facility] 05/18/2018 [facility] Benazepril Hcl 10 Mg Tablet, 20 Mg Oral Daily Active 05/18/2018 [facility] Hydrochlorothiazide (Esidrix*) 25 Mg Tab, 12.5 Mg Oral Daily Active 05/18/2018 [facility] Interferon Pf Opth , 1 Drp Left Eye Four Times Daily Active 05/18/2018 [facility] Metformin Hcl 500 Mg Tablet, 1000 Mg Oral Every Morning Active 05/18/2018 [facility] Omeprazole 40 Mg Capsule., 40 Mg Oral Daily Active 05/18/2018 [facility] Metoprolol Succinate 50 Mg Tab.er.24h Daily Active [facility] 05/18/2018 [facility] Benazepril Hcl 10 Mg Tablet, 20 Mg Oral Daily Active 05/18/2018 [facility] Hydrochlorothiazide (Esidrix*) 25 Mg Tab, 12.5 Mg Oral Daily Active 05/18/2018 [facility] Metformin Hcl 500 Mg Tablet, 1000 Mg Oral Every Morning Active 05/18/2018 [facility] Omeprazole 40 Mg Capsule., 40 Mg Oral Daily Active 05/18/2018 [facility] Aspirin (Aspir 81) 81 Mg Tablet., 81 Mg Oral Daily Active 11/26/2017 [facility] Cephalexin Monohydrate (Keflex) 500 Mg Capsule, 500 Mg Oral Every 12 Hours Active [facility] 11/26/2017 [facility] Prednisone 20 Mg Tab, 20 Mg Oral Daily Active [facility] 11/26/2017 [facility] Aspirin (Aspir 81) 81 Mg Tablet., 81 Mg Oral Daily Active 11/26/2017 [facility] Cephalexin Monohydrate (Keflex) 500 Mg Capsule, 500 Mg Oral Every 12 Hours Active [facility] 11/26/2017 [facility] Prednisone 20 Mg Tab, 20 Mg Oral Daily Active [facility] 11/26/2017 [facility] Aspirin (Aspir 81) 81 Mg Tablet. Daily Active [facility] Benazepril/Hydrochlorothiazide (Benazepril-Hctz 20-12.5 Mg Tab) 1 Each Tablet Daily Active [facility] Ferrous Sulfate 325 Mg Tablet Daily Active [facility] Glipizide (Glipizide Er) 5 Mg Tab.er.24 Daily Active [facility] Loratadine 10 Mg Tablet Daily Active [facility] Lovastatin 40 Mg Tablet Daily Active THERAPEUTICALLY SUBSTITUTED WITH SIMVASTATIN 20MG [facility] Metformin Hcl 500 Mg Tablet Twice A Day Active [facility] Omeprazole 20 Mg Capsule. Daily as needed for Indigestion Active [facility] Furosemide (Lasix) 20 Mg Tablet Daily Active [facility] Glipizide (Glipizide Er) 5 Mg Tab.er.24 Daily Active [facility] Lovastatin 40 Mg Tablet Daily Active THERAPEUTICALLY SUBSTITUTED WITH SIMVASTATIN 20MG [facility] Metformin Hcl 500 Mg Tablet Daily Active [facility] Omeprazole 20 Mg Capsule. Daily Active [facility] Proctozone Hc Three Times A Day Active APPLY RECTALLY [facility] Spironolactone (Aldactone) 25 Mg Tablet Daily Active [facility] Tramadol Hcl (Ultram 50MG*) 50 Mg Tab Every 6 Hours as needed for Pain Active [facility] Allergies, Adverse Reactions, Alerts Substance Category Reaction Severity Reaction type Status Date Reported Comments Source Immunizations Immunization Date Given Site Status Last Updated Comments Source Results Order Name Results Value Reference Range Date Interpretation Comments Source Paracentesis w ultrasound guide VR Paracentesis w ultrasound guide VR Patient Name: SYBIL VASQUEZ : 1960; Age: 57 years Male MR: [id number] Study: Paracentesis w ultrasound guide VR 11/01/2018 14:21 [employer] PROCEDURE: Ultrasound-guided paracentesis CLINICAL INFORMATION: Ascites; Other- See Reason for Consult - acities PROCEDURE: The procedure, risks, benefits and alternatives were discussed. Informed consent was obtained. Timeout was performed prior to the procedure. Ultrasound was used to evaluate potential access sites. The right abdomen was sterilely prepped and draped. 1% lidocaine was used for local anesthesia. Using ultrasound guidance, 6-Burmese sheathed needle was advanced into the peritoneal [...] 1. Technically successful ultrasound guided paracentesis. SL: [id number] 11/01/2018 - - Read by: Derrick Gonzalez Dictated Date/time: 11/01/18 22:41 Electronically Signed by: Derrick Gonzalez 11/01/18 22:42 FINAL REPORT [facility] Brain wo contrast CT Brain wo contrast [...] Minimal chronic ischemic small vessel changes. SL: ELVIS 10/30/2018 - - Read by: Bhavin Holman MD Dictated Date/time: 10/30/18 23:05 Electronically Signed by: Bhavin Holman MD 10/30/18 23:12 FINAL REPORT [facility] Chest 1view DX Chest 1view DX Exam: [...] Mitchell Sánchez MD 10/30/18 22:09 FINAL REPORT [facility] Capillary blood glucose measurement by glucometer (mass/volume) 195 70 - 120 10/24/2018 [facility] Blood leukocytes automated count (number/volume) 7.67 4.8 - 10.8 10/24/2018 [facility] Blood erythrocytes automated count (number/volume) 2.78 4.3 - 5.7 10/24/2018 [facility] Blood hemoglobin measurement (moles/volume) 10.0 14.0 - 18.0 10/24/2018 [facility] Automated blood hematocrit (volume fraction) 30.0 38.2 - 49.6 10/24/2018 [facility] Automated erythrocyte mean corpuscular volume 107.9 81 - 99 10/24/2018 [facility] Automated erythrocyte mean corpuscular hemoglobin (mass per erythrocyte) 36.0 28 - 32 10/24/2018 [facility] Automated erythrocyte mean corpuscular hemoglobin concentration measurement (mass/volume) 33.3 31 - 35 10/24/2018 [facility] RDW BldCo-Rto 14.6 11.7 - 14.4 10/24/2018 [facility] Automated blood platelet count (count/volume) 125 140 - 360 10/24/2018 [facility] Automated blood segmented neutrophil count as percentage of total leukocytes 68.0 38.7 - 80.0 10/24/2018 [facility] Automated blood lymphocyte count as percentage ot total leukocytes 15.6 18.0 - 39.1 10/24/2018 [facility] Automated blood monocyte count as percentage of total leukocytes 13.8 4.4 - 11.3 10/24/2018 [facility] Automated blood eosinophil count as percentage of total leukocytes 1.6 0.0 - 6.0 10/24/2018 [facility] Automated blood basophil count as percentage of total leukocytes 0.7 0.0 - 1.0 10/24/2018 [facility] IM GRANULOCYTES % 0.3 0.0 - 1.0 10/24/2018 [facility] Automated blood neutrophil count 5.2 2.1 - 6.9 10/24/2018 [facility] Blood lymphocytes count (number/volume) 1.2 1.0 - 3.2 10/24/2018 [facility] Blood monocytes automated count (number/volume) 1.1 0.2 - 0.8 10/24/2018 [facility] Automated blood eosinophil count 0.1 0.0 - 0.4 10/24/2018 [facility] Automated blood basophil count (count/volume) 0.1 0.0 - 0.1 10/24/2018 [facility] Absolute Immature Granulocyte (auto 0.02 0 - 0.1 10/24/2018 [facility] Serum or plasma sodium measurement (moles/volume) 135 136 - 145 10/24/2018 [facility] Serum or plasma potassium measurement (moles/volume) 3.6 3.5 - 5.1 10/24/2018 [facility] Serum or plasma chloride measurement (moles/volume) 104 98 - 107 10/24/2018 [facility] Serum or plasma carbon dioxide, total measurement (moles/volume) 23 22 - 29 10/24/2018 [facility] Serum or plasma anion gap 11.6 8 - 16 10/24/2018 [facility] Serum or plasma urea nitrogen measurement (mass/volume) 10 7 - 26 10/24/2018 [facility] Serum or plasma creatinine measurement (mass/volume) 0.64 0.72 - 1.25 10/24/2018 [facility] Serum or plasma urea nitrogen/creatinine mass ratio 16 6 - 25 10/24/2018 [facility] Estimated glomerular filtration rate (GFR) determination > 60 60 10/24/2018 [facility] Glucose measurement 151 74 - 118 10/24/2018 [facility] Serum or plasma calcium measurement (mass/volume) 7.7 8.4 - 10.2 10/24/2018 [facility] Serum or plasma total bilirubin measurement (mass/volume) 5.2 0.2 - 1.2 10/24/2018 [facility] Aspartate Amino Transf (AST/SGOT) 32 5 - 34 10/24/2018 [facility] Serum or plasma alanine aminotransferase measurement (enzymatic activity/volume) 15 0 - 55 10/24/2018 [facility] Serum or plasma protein measurement (mass/volume) 6.3 6.5 - 8.1 10/24/2018 [facility] Serum or plasma albumin measurement (mass/volume) 1.8 3.5 - 5.0 10/24/2018 [facility] Plasma globulin measurement (mass/volume) 4.5 2.3 - 3.5 10/24/2018 [facility] Serum or plasma albumin/globulin mass ratio 0.4 0.8 - 2.0 10/24/2018 [facility] Serum or plasma alkaline phosphatase measurement (enzymatic activity/volume) 111 40 - 150 10/24/2018 [facility] Prothrombin time (PT) in platelet poor plasma by coagulation assay 18.6 11.9 - 14.5 10/23/2018 [facility] INR in Platelet poor plasma by Coagulation assay 1.43 10/23/2018 [facility] Activated partial thromboplastin time (aPTT) in platelet poor plasma bycoagulation assay 38.0 23.8 - 35.5 10/23/2018 [facility] Serum or plasma ferritin measurement (mass/volume) 513.55 21.81 - 274.66 10/23/2018 [facility] Blood cobalamin (vitamin B12) measurement (mass/volume) 722 213 - 816 10/23/2018 [facility] Serum or plasma anguq-0-rvtctjkmaou.tumor marker measurement (mass/volume) 3.4 0.0 - 8.3 10/23/2018 [facility] Serum or plasma hepatitis A virus IgM antibody detection by immunoassay Negative Negative 10/23/2018 [facility] Serum or plasma hepatitis B virus surface antigen detection by immunoassay Negative Negative 10/23/2018 [facility] Serum or plasma hepatitis B virus core IgM antibody detection by immunoassay Negative Negative 10/23/2018 [facility] Urine color determination ORANGE YELLOW 10/23/2018 [facility] Urine clarity SL CLOUDY CLEAR 10/23/2018 [facility] Specific gravity of Urine by Test strip 1.020 1.010 - 1.025 10/23/2018 [facility] Urine pH measurement by automated test strip 6 5 - 7 10/23/2018 [facility] Urine leukocyte esterase detection by dipstick NEGATIVE NEGATIVE 10/23/2018 [facility] Urine nitrite detection NEGATIVE NEGATIVE 10/23/2018 [facility] Urine protein measurement by test strip (mass/volume) NEGATIVE NEGATIVE 10/23/2018 [facility] Urine glucose detection NEGATIVE NEGATIVE 10/23/2018 [facility] Urine ketones detection by automated test strip NEGATIVE NEGATIVE 10/23/2018 [facility] Urine urobilinogen measurement by test strip (mass/volume) 8 0.2 - 1 10/23/2018 [facility] Urine total bilirubin measurement (mass/volume) NEGATIVE NEGATIVE 10/23/2018 [facility] Urine erythrocytes detection 4+ NEGATIVE 10/23/2018 [facility] Automated urine sediment leukocyte count by microscopy (number/high power field) 6-10 0 - 5 10/23/2018 [facility] Erythrocytes detection in urine sediment by light microscopy >50 0 - 5 10/23/2018 [facility] Bacteria detection in urine sediment by light microscopy FEW NONE 10/23/2018 [facility] Epithelial cells detection in urine sediment by light microscopy FEW NONE 10/23/2018 [facility] Mucus detection in urine sediment by light microscopy FEW RARE 10/23/2018 [facility] Specimen source identification of body fluid PERITONEAL 10/22/2018 [facility] Evaluation of color of body fluid YELLOW 10/22/2018 [facility] Determination of appearance of body fluid SL.CLOUDY 10/22/2018 [facility] Manual body fluid leukocytes count (number/volume) 192 10/22/2018 [facility] Manual body fluid erythrocytes count (number/volume) 715 10/22/2018 [facility] Manual body fluid neutrophils/100 leukocytes 21 10/22/2018 [facility] Body fluid lymphocyte count 15 10/22/2018 [facility] Body fluid monocyte count 64 10/22/2018 [facility] Total cell count 100 10/22/2018 [facility] Automated reticulocyte count as percentage of total erythrocytes 6.5 0.8 - 2.2 10/22/2018 [facility] Serum or plasma iron measurement (mass/volume) 95 65 - 175 10/22/2018 [facility] Serum or plasma iron binding capacity measurement (mass/volume) 108 261 - 478 10/22/2018 [facility] Serum or plasma iron saturation measurement (mass fraction) 88 15 - 50 10/22/2018 [facility] Serum or plasma transferrin measurement (mass/volume) 77 174 - 364 10/22/2018 [facility] Phosphorus measurement 2.5 2.3 - 4.7 10/21/2018 [facility] Serum or plasma magnesium measurement (mass/volume) 1.5 1.3 - 2.1 10/21/2018 [facility] Ammonia Ser-mCnc 107 31 - 123 10/21/2018 [facility] Serum or plasma ethanol measurement (mass/volume) < 10.0 0.0 - 10.0 10/21/2018 [facility] Abdomen/Pelvis wo IV contrast CT Abdomen/Pelvis wo [...] Mathew Gonzalez MD 10/06/18 01:22 FINAL REPORT [facility] Paracentesis w ultrasound guide VR Paracentesis [...] lidocaine was used for local anesthesia. A 5-Burmese sheathed needle was advanced into the peritoneal [...] Fermin Peck DO 10/02/18 09:48 FINAL REPORT [facility] ED Abdomen/Pelvis IV contrast only CT ED [...] Ruthy Delgado MD 09/29/18 21:44 FINAL REPORT [facility] Hyaline casts detection in urine sediment by light microscopy 2-5 0 - 1 08/25/2018 [facility] Serum or plasma creatine kinase measurement (enzymatic activity/volume) 119 30 - 200 08/25/2018 [facility] Serum or plasma creatine kinase MB measurement (mass/volume) 1.80 0 - 5.0 08/25/2018 [facility] Troponin I measurement by highly sensitive enzyme immunoassay < 0.001 0 - 0.300 08/25/2018 [facility] Serum or plasma amylase measurement (enzymatic activity/volume) 34 25 - 125 08/25/2018 [facility] Serum or plasma lipase measurement (enzymatic activity/volume) 34 8 - 78 08/25/2018 [facility] Capillary blood glucose measurement by glucometer (mass/volume) Capillary blood glucose measurement by glucometer (mass/volume) 243 70 - 120 11/26/2017 [facility] Automated blood basophil count (count/volume) Automated blood basophil count (count/volume) 0.0 0.0 - 0.1 11/26/2017 [facility] Automated blood basophil count as percentage of total leukocytes Automated blood basophil count as percentage of total leukocytes 0.1 0.0 - 1.0 11/26/2017 [facility] Automated blood eosinophil count Automated blood eosinophil count 0.0 0.0 - 0.4 11/26/2017 [facility] Automated blood eosinophil count as percentage of total leukocytes Automated blood eosinophil count as percentage of total leukocytes 0.0 0.0 - 6.0 11/26/2017 [facility] Automated blood hematocrit (volume fraction) Automated blood hematocrit (volume fraction) 37.2 38.2 - 49.6 11/26/2017 [facility] Automated blood lymphocyte count as percentage ot total leukocytes Automated blood lymphocyte count as percentage ot total leukocytes 7.0 18.0 - 39.1 11/26/2017 [facility] Automated blood monocyte count as percentage of total leukocytes Automated blood monocyte count as percentage of total leukocytes 9.8 4.4 - 11.3 11/26/2017 [facility] Automated blood neutrophil count Automated blood neutrophil count 9.1 2.1 - 6.9 11/26/2017 [facility] Automated blood platelet count (count/volume) Automated blood platelet count (count/volume) 125 140 - 360 11/26/2017 [facility] Automated blood segmented neutrophil count as percentage of total leukocytes Automated blood segmented neutrophil count as percentage of total leukocytes 82.0 38.7 - 80.0 11/26/2017 [facility] Automated erythrocyte mean corpuscular hemoglobin (mass per erythrocyte) Automated erythrocyte mean corpuscular hemoglobin (mass per erythrocyte) 32.8 28 - 32 11/26/2017 [facility] Automated erythrocyte mean corpuscular hemoglobin concentration measurement (mass/volume) Automated erythrocyte mean corpuscular hemoglobin concentration measurement (mass/volume) 34.7 31 - 35 11/26/2017 [facility] Automated erythrocyte mean corpuscular volume Automated erythrocyte mean corpuscular volume 94.7 81 - 99 11/26/2017 [facility] Blood erythrocytes automated count (number/volume) Blood erythrocytes automated count (number/volume) 3.93 4.3 - 5.7 11/26/2017 [facility] Blood hemoglobin measurement (moles/volume) Blood hemoglobin measurement (moles/volume) 12.9 14.0 - 18.0 11/26/2017 [facility] Blood leukocytes automated count (number/volume) Blood leukocytes automated count (number/volume) 11.13 4.8 - 10.8 11/26/2017 [facility] Blood lymphocytes count (number/volume) Blood lymphocytes count (number/volume) 0.8 1.0 - 3.2 11/26/2017 [facility] Blood monocytes automated count (number/volume) Blood monocytes automated count (number/volume) 1.1 0.2 - 0.8 11/26/2017 [facility] Estimated glomerular filtration rate (GFR) determination Estimated glomerular filtration rate (GFR) determination null 60 11/26/2017 [facility] Glucose measurement Glucose measurement 253 74 - 118 11/26/2017 [facility] Serum or plasma anion gap Serum or plasma anion gap 9.3 8 - 16 11/26/2017 [facility] Serum or plasma calcium measurement (mass/volume) Serum or plasma calcium measurement (mass/volume) 8.1 8.4 - 10.2 11/26/2017 [facility] Serum or plasma carbon dioxide, total measurement (moles/volume) Serum or plasma carbon dioxide, total measurement (moles/volume) 27 22 - 29 11/26/2017 [facility] Serum or plasma chloride measurement (moles/volume) Serum or plasma chloride measurement (moles/volume) 101 98 - 107 11/26/2017 [facility] Serum or plasma creatinine measurement (mass/volume) Serum or plasma creatinine measurement (mass/volume) 0.70 0.72 - 1.25 11/26/2017 [facility] Serum or plasma potassium measurement (moles/volume) Serum or plasma potassium measurement (moles/volume) 4.3 3.5 - 5.1 11/26/2017 [facility] Serum or plasma sodium measurement (moles/volume) Serum or plasma sodium measurement (moles/volume) 133 136 - 145 11/26/2017 [facility] Serum or plasma urea nitrogen measurement (mass/volume) Serum or plasma urea nitrogen measurement (mass/volume) 11 7 - 26 11/26/2017 [facility] Serum or plasma urea nitrogen/creatinine mass ratio Serum or plasma urea nitrogen/creatinine mass ratio 16 6 - 25 11/26/2017 [facility] Red Cell Distribution Width 14.4 11.7 - 14.4 11/26/2017 [facility] IM GRANULOCYTES % 1.1 0.0 - 1.0 11/26/2017 [facility] Absolute Immature Granulocyte (auto 0.12 0 - 0.1 11/26/2017 [facility] Blood culture Blood culture NO GROWTH AFTER 5 DAYS, FINAL REPORT 11/24/2017 [facility] Serum or plasma cholesterol in HDL measurement (mass/volume) Serum or plasma cholesterol in HDL measurement (mass/volume) 26 40 - 60 11/24/2017 [facility] Serum or plasma cholesterol in LDL measurement (mass/volume) Serum or plasma cholesterol in LDL measurement (mass/volume) 108 60 - 130 11/24/2017 [facility] Serum or plasma cholesterol measurement (mass/volume) Serum or plasma cholesterol measurement (mass/volume) 154 0 - 199 11/24/2017 [facility] Serum or plasma total cholesterol/cholesterol in HDL mass ratio Serum or plasma total cholesterol/cholesterol in HDL mass ratio 5.9 3.9 - 4.7 11/24/2017 [facility] [facility] Serum or plasma triglyceride measurement (mass/volume) Serum or plasma triglyceride measurement (mass/volume) 99 0 - 149 11/24/2017 [facility] Hemoglobin A1c Percent 7.5 4.0 - 7.0 11/24/2017 [facility] Blood platelets count by estimate (number/volume) Blood platelets count by estimate (number/volume) ADEQUATE 11/23/2017 [facility] Manual blood band neutrophils form/100 leukocytes Manual blood band neutrophils form/100 leukocytes 4 11/23/2017 [facility] Manual blood lymphocytes/100 leukocytes Manual blood lymphocytes/100 leukocytes 7 19 - 48 11/23/2017 [facility] Manual blood monocytes/100 leukocytes Manual blood monocytes/100 leukocytes 2 3.4 - 9.0 11/23/2017 [facility] Manual blood neutrophils/100 leukocytes Manual blood neutrophils/100 leukocytes 87 40 - 74 11/23/2017 [facility] Platelet morphology Platelet morphology NORMAL 11/23/2017 [facility] RBC morphology RBC morphology NORMAL 11/23/2017 [facility] Differential Total Cells Counted 100 11/23/2017 [facility] Clostridium difficile A and B toxin assay Clostridium difficile A and B toxin assay NEGATIVE NEGATIVE 11/22/2017 [facility] Stool calprotectin measurement (mass/mass) Stool calprotectin measurement (mass/mass) null 0 - 120 11/22/2017 [facility] Stool lactoferrin detection Stool lactoferrin detection NEGATIVE NEGATIVE 11/22/2017 [facility] Cytoplasmic antineutrophil cytoplasmic antibody (c-ANCA) titer Cytoplasmic antineutrophil cytoplasmic antibody (c-ANCA) titer null Neg:<1:20 11/21/2017 [facility] Serum atypical perinuclear neutrophil cytoplasmic antibody titer by immunofluorescence Serum atypical perinuclear neutrophil cytoplasmic antibody titer by immunofluorescence null Neg:<1:20 11/21/2017 [facility] Serum perinuclear neutrophil cytoplasmic antibody titer by immunofluorescence Serum perinuclear neutrophil cytoplasmic antibody titer by immunofluorescence null Neg:<1:20 11/21/2017 [facility] Plasma globulin measurement (mass/volume) Plasma globulin measurement (mass/volume) 4.6 2.3 - 3.5 11/21/2017 [facility] Serum or plasma alanine aminotransferase measurement (enzymatic activity/volume) Serum or plasma alanine aminotransferase measurement (enzymatic activity/volume) 40 0 - 55 11/21/2017 [facility] Serum or plasma albumin measurement (mass/volume) Serum or plasma albumin measurement (mass/volume) 2.2 3.5 - 5.0 11/21/2017 [facility] Serum or plasma albumin/globulin mass ratio Serum or plasma albumin/globulin mass ratio 0.5 0.8 - 2.0 11/21/2017 [facility] Serum or plasma alkaline phosphatase measurement (enzymatic activity/volume) Serum or plasma alkaline phosphatase measurement (enzymatic activity/volume) 104 40 - 150 11/21/2017 [facility] Serum or plasma protein measurement (mass/volume) Serum or plasma protein measurement (mass/volume) 6.8 6.5 - 8.1 11/21/2017 [facility] Serum or plasma total bilirubin measurement (mass/volume) Serum or plasma total bilirubin measurement (mass/volume) 1.4 0.2 - 1.2 11/21/2017 [facility] Aspartate Amino Transf (AST/SGOT) 55 5 - 34 11/21/2017 [facility] Influenza virus A and B antigen identification by immunofluorescence Influenza virus A and B antigen identification by immunofluorescence NEGATIVE NEGATIVE 11/20/2017 [facility] Bacterial blood culture Bacterial blood culture Organism: KLEBSIELLA PNEUMONIAE 11/20/2017 [facility] Manual blood metamyelocytes/100 leukocytes Manual blood metamyelocytes/100 leukocytes 5 0 - 0 11/20/2017 [facility] Lactic Acid Level 20.0 4.5 - 19.8 11/20/2017 [facility] Vital Signs Vital Sign Value Date Comments Source Encounters Location Location Details Encounter Type Encounter Number Reason For Visit Attending Provider ADM Date DC Date Status Source Discharged Inpatient [id number] TOSHIA MOREAU MD 11/20/2017 11/26/2017 [facility] Departed Emergency Room [id number] SCOTTIE ARROYO MD 05/18/2018 05/18/2018 [facility] Departed Emergency Room [id number] ARSH ALTMAN MD 08/25/2018 08/25/2018 [facility] Discharged Inpatient [id number] SAAD GUZMAN MD 10/21/2018 10/24/2018 [facility] Procedures Procedure Code Date Perfomer Comments Source EGD (esophagogastroduodenoscopy) [id number] 10/23/2018 [facility] US Abdomen limited [id number] 10/23/2018 [facility] US guided paracentesis [id number] 10/22/2018 [facility] Computed tomography of abdomen and pelvis with contrast [id number] 08/25/2018 [facility] EXCISION OF CECUM, ENDO, DIAGN [id number] 11/22/2017 [facility] EXCISION OF LEFT LARGE INTESTINE, ENDO, DIAGN [id number] 11/22/2017 [facility] EXCISION OF SIGMOID COLON, ENDO, DIAGN [id number] 11/22/2017 [facility] EXCISION OF TRANSVERSE COLON, ENDO, DIAGN [id number] 11/22/2017 [facility] EXCISION OF ASCENDING COLON, ENDO, DIAGN [id number] 11/22/2017 [facility] Computed tomography of abdomen and pelvis with contrast [id number] 11/20/2017 [facility]
--- OUTSIDE RECORDS SUMMARY | 2019-01-05 12:32 | XMS REPORT | Clinical Summary ---
Author Author BARB [facility] Address Unknown Phone Unavailable Care Team Providers Care Baggage Handling Supervisor Name Role Phone Jose E Gallegos PCP [...] Encounter 05/15/2018 Hospital Pre-Admission Testing Encounter after 01/04/2018 Social History Date Tobacco Use Types Packs/Day [...] Type Area Manufactur er 01/21/2020 [id number] / [id number] / Tissue Memb Amniogrft 2.5x2.0 Ophthalmol Left: Eye BIO-TISSUE Ag-[id number] - [id number] Implanted: Qty: 1 on 05/18/2018 by [...] METER Routine 05/18/2018 7:53 AM CDT after 01/04/2018 Results * POC-Glucose meter (05/18/2018 11:03 AM CDT) Only the most recent of 3 results within the time period is included. POC-Glucose Meter 79Comment: TESTED AT [facility] 70 - 110 mg/dL [facility] [address] [place] [address] Specimen Blood Performing Organization Address City/State/Zipcode Phone Number [facility] [address] [place] [address] [facility] C[facility] after 01/04/2018 Insurance Payer Benefit Subscriber ID Type Phone Address Plan / Group [employer] xxxxxxxxxx [employer] E EXCHANGE
--- OUTSIDE RECORDS SUMMARY | 2019-01-05 12:32 | XMS REPORT | Clinical Summary ---
Author Author Darryl Chavezist Organization [facility] Address Unknown Phone Unavailable Care Team Providers Care Chief Compliance Officer Name Role Phone PCP Unavailable Allergies Not on File Medications Not on file Active Problems Not on file Encounters Care Team Description Date Type Specialty System, Provider Not In, Canceled (Scheduling Error) 04/23/2018 Lab Lab after 01/04/2018 Social History Date Tobacco Use [...] Comments COLON CANCER SCREENING 2011 SHINGLES VACCINES (#1) 2011 INFLUENZA VACCINE 06/10/2018 08/27/2017 Results Not on fileafter 01/04/2018 Advance Directives Patient has advance care planning documents on file. For more information, saturnino green contact: Darryl Pearson [address] [place] [address]
--- OUTSIDE RECORDS SUMMARY | 2019-01-05 12:32 | XMS REPORT ---
[facility] Address Unknown Phone Unavailable Care Team Providers Care Cellar Pumper Name Role Phone TATI AVILES Unavailable Unavailable GUZMANTRINIDAD MCFARLAND Unavailable Unavailable GUZMAN, SOUHEIL Unavailable Unavailable Julio C ALTMAN Unavailable Unavailable CRISTIAN-GABBI ROSE Unavailable Unavailable TOSHIA MOREAU Unavailable Unavailable KASHIF DIXON Unavailable Unavailable Problems This patient has no known problems. Allergies, Adverse Reactions, Alerts This patient has no known allergies or adverse reactions. Medications This patient has no known medications. Results Test Description Test Time Test Comments Text Results Atomic Results Result Comments US ABDOMEN LIMITED 2018-12-24 14:51:00 [place] [address] Patient Name: SYBIL VASQUEZ MR #: [id number] : 1960 Age/Sex: 58/M Req #: [id number] [facility] Physician: TATI AVILES MD Ordered by: uJ Suresh HEMODIALYSIS CHARGE NURSE Report #: [id number] Location: [facility] Room/Bed: [place] [address] Procedure: [id number] US/US ABDOMEN LIMITED Exam Date: 12/24/18 Exam Time: 1416 REPORT STATUS: Signed Examination: Limited abdominal ultrasound. Clinical indication: Evaluate for ascites. Comparison examination: Ultrasound-guided paracentesis 12/17/2018. Technique: Limited sonographic evaluation of all 4 abdominal quadrants was performed. Findings: See impression Impression: Diffuse small volume ascites, highest concentration in the right upper quadrant. Signed by: Dr. Neisha Motley M.D. on 12/24/2018 2:52 PM Dictated By: NEISHA MOTLEY MD 51 Transcribed By: JACQUI on 12/24/181451 COPY TO: JU SURESH NP CHEST SINGLE (NOT PORTABLE) 2018-12-22 23:40:00 [place] [address] Patient Name: SYBIL VASQUEZ MR #: [id number] : 1960 Age/Sex: 58/M Req #: [id number] Adm Physician: Ordered by: ARSH ALTMAN MD Report #: [id number] Location: ER Room/Bed: Procedure: [id number] DX/CHEST SINGLE (NOT PORTABLE) Exam Date: 12/22/18 Exam Time: 2305 REPORT STATUS: Signed EXAMINATION: CHEST SINGLE (NOT PORTABLE) INDICATION: sob COMPARISON: None FINDINGS: AP view TUBES and LINES: None. LUNGS: Lungs are well inflated. Left basilar scarring or atelectasis. Right basilar calcified granulomas. There is no evidence of pneumonia or pulmonary edema. PLEURA: No pleural effusion or pneumothorax. HEART AND MEDIASTINUM: The cardiomediastinal silhouette is u nremarkable. BONES AND SOFT TISSUES: No acute osseous lesion. Soft tissues are unremarkable. UPPER ABDOMEN: No free air under the diaphragm. IMPRESSION: No acute thoracic abnormality. Signed by: DR. Lucius Dang MD on 12/22/2018 11:42 PM Dictated By: LUCIUS DANG MD 41 Transcribed By: JACQUI on 12/22/182341 COPY TO: ARSH ALTMAN MD US GUIDED PARACENTESIS 2018-12-17 16:08:00 [facility] [address] [place] [address] Patient Name: SYBIL VASQUEZ MR #: [id number] : 1960 Age/Sex: 58/M Req #: [id number] Adm Physician: Ordered by: TRINIDAD GUZMAN MD Report #: [id number] Location: Room/Bed: Procedure: [id number] US/US GUIDED PARACENTESIS Exam Date: 12/17/18 Exam Time: 1324 REPORT STATUS: Signed Date and Time: 12/17/2018 Procedure: Ultrasound- guided paracentesis pump operator byproducts: Dr. Motley Pre-operative diagnosis: Ascites Post-operative diagnosis: Ascites Conscious Sedation: None The patient's heart rate and pulse oximetry were continuously monitored by the interventional radiology nurse. Blood pressure was monitored at 5 minute intervals. Additional Medications: Lidocaine 1% for local anesthesia Estimated blood loss: Minimal Blood products administered: None Specimens: 6650 cc straw-colored fluid Implants: None Condition at completion: Stable Disposition: Discharged home DISCUSSION: Informed consent was obtained and documented in the medical record after discussion of risks and benefits. Preliminary sonographic evaluation confirmed moderate ascites. A suitable percutaneous approach in the right upper quadrant was identified and the overlying skin was prepped and draped in standard sterile fashion. 1% lidocaine was infiltrated into the skin and subcutaneous tissues for local anesthesia. Then under continuous sonographic guidance, a 5 Prydeinig PhilSmile needle catheter was advanced into the peritoneal space. The catheter was advanced off the needle and connected to vacuum bottle with subsequent evacuation of 6650 cc straw-colored fluid. The catheter was removed and a sterile dressing was applied. The patient tolerated the procedure well without immediate complication. FINDINGS: Moderate ascites IMPRESSION: Successful ultrasound-guided paracentesis with evacuation of 6650 cc straw-colored fluid. Signed by: Dr. Neisha Motley M.D. on 12/17/2018 4:08 PM Dictated By: NEISHA MOTLEY MD 1608 Transcribed By: JACQUI on 12/17/18 1608 COPY TO: TRINIDAD GUZMAN MD US GUIDED PARACENTESIS 2018-12-02 18:44:00 [place] [address] Patient Name: SYBIL VASQUEZ MR #: [id number] : 1960 Age/Sex: 57/M Req #: [id number] Adm Physician: Ordered by: TRINIDAD GUZMAN MD Report #: [id number] Location: Room/Bed: Procedure: [id number] US/US GUIDED PARACENTESIS Exam Date: 12/02/18 Exam Time: 1600 REPORT STATUS: Signed Procedure: Ultrasound-guided therapeutic paracentesis Pre-operative diagnosis: Ascites Post-operative diagnosis: Ascites Conscious Sedation: None The patient's heart rate and pulse oximetry were continuously monitored by the interventional radiology nurse. Blood pressure was monitored at 5 minute intervals. Additional Medications: Lidocaine 1% for local anesthesia Estimated blood loss: Less than 5 cc Specimens: 6000 cc serous straw-colored fluid Implants: None Condition at completion: Stable Disposition: Discharged home DISCUSSION: Informed consent was obtained and documented in the medical record after discussion of risks and benefits with the healthcare proxy. Preliminary sonographic evaluation confirmed large volume ascites. A suitable percutaneous approach in the right lower abdomen was identified and the overlying skin was prepped and draped in standard sterile fashion. 1% lidocaine was infiltrated into the skin and subcutaneous tissues for local anesthesia. Then under continuous sonographic guidance, a 5 Prydeinig Yueh needle catheter was advanced into the peritoneal space with removal of 6000 cc of ascitic fluid. Post procedural ultrasound demonstrated small to moderate residual ascites. The catheter was removed and a sterile dressing was applied. The patient tolerated the procedure well without immediate complication. IMPRESSION: Successful ultrasound-guided t herapeutic paracentesis with removal of 6000 cc of serous ascitic fluid. Signed by: Dr. Federico Murphy MD on 12/02/2018 6:47 PM Dictated By: FEDERICO MURPHY MD 46 Transcribed By: JACQUI on 12/02/181846 COPY TO: TRINIDAD GUZMAN MD US ABDOMEN LIMITED 2018-10-23 16:43:00 [place] [address] Patient Name: SYBIL VASQUEZ MR #: [id number] : 1960 Age/Sex: 57/M Req #: [id number] Adm Physician: SAAD GUZMAN MD Ordered by: TRINIDAD GUZMAN MD Report #: [id number] Location: MED/SURG Room/Bed: [facility] Procedure: [id number] US/US ABDOMEN LIMITED Exam Date: 10/23/18 Exam Time: 1450 REPORT STATUS: Signed Right upper quadrant abdominal ultrasound dated 10/23/2018. History: Cirrhosis. Comparison: CT of the abdomen and pelvis dated 08/25/2018. Discussion: Transverse and longitudinal images of the right upper quadrant of the abdomen were obtained demonstrating a liver of normal with increased echogenicity measuring 15.9 cm in length. Irregular nodular contour compatible with ascites. There is no evidence of a focal hepatic mass. The portal vein is patent with hepatopetal flow and is within normal limits measuring 10 mm in diameter. The biliary tree is within normal limits with the common bile duct measuring 3 mm in diameter. There are stones within the gallbladder. The sonographic Casarez's sign was negative. The right kidney is normal in size and echogenicity without evidence of hydronephrosis, stones, or mass and measures 12.6 cm in length. There is a lower pole renal cyst measuring 1.8 cm. Pancreas and aorta are not optimally visualized due to bowel gas. Small amount of ascites around the liver. IMPRESSION: 1. Nodular liver compatible with cirrhosis. 2. Free fluid around the liver. 3. Stones within the gallbladder. Signed by: Dr. Brijesh Workman DO on 10/23/2018 4:53 PM Dictated By: BRIJESH WORKMAN DO 52 Transcribed By: JACQUI on 10/23/181652 COPY TO: TRINIDAD GUZMAN MD CHEST SINGLE (PORTABLE) 2018-10-23 14:33:00 [place] [address] Patient Name: SYBIL VASQUEZ MR #: [id number] : 1960 Age/Sex: 57/M Req #: [id number] Adm Physician: SAAD GUZMAN MD Ordered by: TRINIDAD GUZMAN MD Report #: [id number] Location: MED/SURG2 Room/Bed: [facility] Procedure: [id number] DX/CHEST SINGLE (PORTABLE) Exam Date: 10/23/18 Exam Time: 1405 REPORT STATUS: Signed EXAMINATION: CHEST SINGLE (PORTABLE) INDICATION: Alcoholic cirrhosis. Preop. COMPARISON: None FINDINGS: TUBES and LINES: None. LUNGS: Lungs are well inflated. Mild chronic appearing changes in the lungs. Likely minimal scarring/atelectasis in the left lower lung. There is no evidence of pneumonia or pulmonary edema. PLEURA: No pleural effusion or pneumothorax. HEART AND MEDIASTINUM: The cardiomediastinal silhouette is unremarkable. BONES AND SOFT TISSUES: No acute osseous lesion. Soft tissues are unremarkable. UPPER ABDOMEN: No free air under the diaphragm. IMPRESSION: Likely minimal scarring/atelectasis in the left lower lung. Signed by: Dr. Froy Hanna M.D. on 10/23/2018 2:34 PM Dictated By: FROY HANNA MD, MD 1434 Transcribed By: JACQUI on 10/23/18 1434 COPY TO: TRINIDAD GUZMAN MD IR CONSULT 2018-10-22 16:35:00 [place] [address] Patient Name: SYBIL VASQUEZ MR #: [id number] : 1960 Age/Sex: 57/M Req #: [id number] Adm Physician: SAAD GUZMAN MD Ordered by: TRINIDAD GUZMAN MD Report #: [id number] Location: MED/SURG2 Room/Bed: [facility] Procedure: [id number] DX/IR CONSULT Exam Date: Exam Time: REPORT STATUS: Signed PROCEDURE: US GUIDED PARACENTESIS COMPARISON: None. I NDICATIONS: Ascites FINDINGS: Informed consent was obtained and documented the medical record. The patient was placed in the supine position on the sonographic table. The right side of the abdomen was prepped and draped in standard sterile fashion. A suitable percutaneous approach to the peritoneal cavity was identified and the overlying skin was marked. 1% lidocaine was infiltrated into the skin and subcutaneous tissues for local anesthesia. Then under continuous sonographic guidance a 5 Prydeinig Yueh needle catheter was advanced into the peritoneal cavity. The catheter was advanced off the needle and connected to vacuum bottle with subsequent evacuation of 6000 cc straw-colored fluid. The catheter was removed and a sterile dressing was applied. Patient tolerated the procedure well without immediate complication. CONCLUSION: Successful ultrasound- guided paracentesis with evacuation of 6000 cc of straw-colored fluid. Spec imen was submitted for laboratory analysis as requested by the referring clinical team. Dictated by: Neisha Motley M.D. on 10/22/2018 at 16:35 Electronically approved by: Neisha Motley M.D. on 10/22/2018 at 16:35 Dictated By: NEISHA MOTLEY MD 1635 Transcribed By: ANSON on 10/22/18 1635 COPY TO: TRINIDAD GUZMAN MD US GUIDED PARACENTESIS 2018-10-22 16:35:00 [place] [address] Patient Name: SYBIL VASQUEZ MR #: [id number] : 1960 Age/Sex: 57/M Req #: [id number] Adm Physician: SAAD GUZMAN MD Ordered by: TRINIDAD GUZMAN MD Report #: [id number] Location: MED/SURG2 Room/Bed: [facility] Procedure: [id number] US/US GUIDED PARACENTESIS Exam Date: Exam Time: REPORT STATUS: Signed PROCEDURE: US GUIDED PARACENTESIS COMPARISON: None. INDICATIONS: Ascites FINDINGS: Informed consent was obtained and documented the medical record. The patient was placed in the supine position on the sonographic table. The right side of the abdomen was prepped and draped in standard sterile fashion. A suitable percutaneous approach to the peritoneal cavity was identified and the overlying skin was marked. 1% lidocaine was infiltrated into the skin and subcutaneous tissues for local anesthesia. Then under continuous sonographic guidance a 5 Prydeinig Yueh needle catheter was advanced into the peritoneal cavity. The catheter was advanced off the needle and connected to vacuum bottle with subsequent evacuation of 6000 cc straw-colored fluid. The catheter was removed and a sterile dressing was applied. Patient tolerated the procedure well without immediate complication. CONCLUSION: Successful ultrasound- guided paracentesis with evacuation of 6000 cc of straw-colored fluid. Specimen was submitted for laboratory analysis as requested by the referring clinical team. Dictated by: Neisha Motley M.D. on 10/22/2018 at 16:35 Electronically approved by: Neisha Motley M.D. on 10/22/2018 at 16:35 Dictated By: NEISHA MOTLEY MD 1635 Transcribed By: ANSON on 10/22/18 1635 COPY TO: TRINIDAD GUZMAN MD CT ABDOMEN/PELVIS W 2018-08-25 20:33:00 [place] [address] Patient Name: SYBIL VASQUEZ MR #: [id number] : 1960 Age/Sex: 57/M Req #: [id number] [facility] Physician: Ordered by: ARSH ALTMAN MD Report #: [id number] Location: ER Room/Bed: Procedure: [id number] CT/CT ABDOMEN/PELVIS W Exam Date: Exam Time: REPORT STATUS: Signed EXAM: CT Abdomen and Pelvis WITH contrast INDICATION: Right lower quadrant pain, loss of appetite, nausea vomiting abd pain Y COMPARISON: CT 11/20/2017 TECHNIQUE: Abdomen and pelvis were scanned utilizing a multidetector helical scanner from the lung base to the pubic symphysis after administration of IV contrast. Coronal and sagittal reformations were obtained. Routine protocol was performed. Scan was performed when during portal venous phase. IV CONTRAST: 100 mL of Isovue-370 ORAL CONTRAST: Water COMPLICATIONS: None RADIATION DOSE: Total DLP: 720.8 mGy*cm Estimated effective dose: (DLP x 0.015 x size factor) mSv CTDIvol has been reviewed. It is below the limits set by the Radiation Protocol Committee (RPC). Dose modulation, iterative reconstruction, and/or weight based adjustment of the mA/kV was utilized to reduce the radiation dose to as low as reasonably achievable. FINDINGS: LINES and TUBES: None. LOWER THORAX: Stable lingular 2 mm nodule (series 2 image 10). Partially visualized right middle lobe calcified granuloma on the first image slice and in the lateral segment. Lingular and bilateral lobe atelectasis or scarring. HEPATOBILIARY: Nodular liver contour compatible with cirrhosis. Numerous tiny hypodensities throughout the liver likely secondary to cirrhosis. Limited evaluation for arterially enhancing lesions in the absence of arterial phase. No biliary ductal dilation. GALLBLADDER: Numerous gallstones within the contracted gallbladder. No wall thickening. SPLEEN: Spleen is enlarged measuring 14 cm in length. PANCREAS: No focal masses or ductal dilatation. ADRENALS: Stable left adrenal 0.9 cm nodule (sagittal image 96). KIDNEYS/URETERS: Kidneys enhance symmetrically. No hydronephrosis. Right renal 2 cm cyst in the interpolar region. Additional smaller hypodensities are too small to characterize but likely represent cysts. Nonobstructing punctate left inferior pole calculus. GI TRACT: Small hiatal hernia. Ascending colonic, transverse colonic, and ileal circumferential wall thickening which may be secondary to portal colopathy/enteropathy. No abnormal distention or evidence of bowel obstruction. PELVIC ORGANS/BLADDER: Bladder is collapsed, limiting evaluation. LYMPH NODES: No lymphadenopathy. VESSELS: Recanalized umbilical vein and abdominal wall varices. Enlarged portal vein measuring 1.6 cm in diameter. The portal, splenic, and superior mesenteric veins are patent. Mild scattered atherosclerotic calcifications. No abdominal aortic aneurysm. PERITONEUM / RETROPERITONEUM: Mild amount of ascites. No free air. BONES: There are degenerative changes in the lumbar spine. SOFT TISSUES: Fat-containing bilateral inguinal hernias. Ascites within the right inguinal canal. IMPRESSION: 1. Cirrhosis with sequela of portal hypertension including splenomegaly, recanalized umbilical vein and caput medusa, and mild ascites. 2. Colonic and small bowel wall thickening, likely related to portal hypertension. 3. Cholelithiasis with contracted gallbladder. 4. Left adrenal 0.9 cm nodule, indeterminate. 5. Left nephrolithiasis. Signed by: DR. Lucius Dang MD on 08/25/2018 8:56 PM Dictated By: LUCIUS DANG MD 55 Transcribed By: JACQUI on 08/25/182055 COPY TO: ARSH ALTMAN MD POCT-GLUCOSE METER 2018-05-18 11:05:00 POC-GLUCOSE METER (BEAKER) (test obtc=4917) 79 mg/dL 70-110 TESTED AT [address] [address] POCT-GLUCOSE [id number] 10:19:00* Test Item Value Reference Range Comments POC-GLUCOSE METER (BEAKER) (test dlkh=5549) 71 mg/dL 70-110 TESTED AT [address] [address] POCT-GLUCOSE [id number] 07:57:00* Test Item Value Reference Range Comments POC-GLUCOSE METER (BEAKER) (test vfnb=3872) 82 mg/dL 70-110 TESTED AT [address] [address] TISSUE [id number] 10:49:00Surgical Pathology Report Case: [id number] Authorizing Provider: Neelam Dixon MD Collected: 05/28/2017 1429 Ordering Location: [facility] Endoscopy Received: 05/28/2017 1617 Services Pathologist: Marisol Dowell MD Specimen: Polyp, Gastric, POLYP TAKEN W/ STANDARD FORCEP STOMACH, POLYPECTOMY: - HYPERPLASTIC POLYP WITH ULCERATED SURFACE, GRANULATION TISSUE,FOREIGN BODY REACTION AND REACTIVE CHANGES - NO DYSPLASIA OR MALIGNANCY SEEN - NO HELICOBACTER PYLORI-LIKE ORGANISMS SEEN ON WARTHIN-STARRY STAIN 19700Evelkg, unspecified type, gastric polypGastric polypSpecimen is received in formalin-filled container labeled with the patient's information and labeled "gastric polyp" consists of a mcguire-red polyp measuring 1.5 x 1 x 0.6 cm. The specimen is serially sectioned and submitted entirely A1-A3, CG/bc The polyp shows multifocal mucosal erosions with underlying channels of congestive vasculatures and occasional calcifications. These features might be manifestations of ischemic changes. Special stain fails to reveal microorganism. POTASSIUM-STAT [id number] 13:09:00* Test Item Value Reference Range Comments POTASSIUM (BEAKER) (test nssu=753) 3.6 meq/L 3.6-5.5 [id number] 13:07:00* Test Item Value Reference Range Comments POC-POTASSIUM (BEAKER) (test jnxe=5798) 3.4 meq/L 3.6-5.5 [address]ED [address] [address] POCT-GLUCOSE [id number] 13:03:00* Test Item Value Reference Range Comments POC-GLUCOSE METER (BEAKER) (test imoq=5198) 199 mg/dL 70-110 TESTED AT [address] [address] ABDOMEN-1VIEW (KUB) [facility] [address] [place] [address] Patient Name: SYBIL VASQUEZ MR #: [id number] : 1960 Age/Sex: 56/M Req #: [id number] Adm Physician: TOSHIA MOREAU MD Ordered by: TRINIDAD GUZMAN MD Report #: [id number] Location: MED/SURG2 Room/Bed: [facility] Procedure: [id number] DX/AB DOMEN-1VIEW (KU) Exam Date: 11/25/17 Exam Time: 063 0 REPORT STATUS: Signed EXAM: ABDOMEN-1VIEW ([facility]) DATE: 11/25/2017 5: 57 AM Time stamp on exam: 6:34 AM INDICATION: Distended abdomen COMPARI SON: None FINDINGS: LINES/TUBES: None BOWEL PATTERN: No evidence for obstruction. SOFT TISSUES: No abnormal calcifications. No mass effect. LUNG BASES: Not included BONES: No acute findings. IMPRESSION: Non obstructive bowel gas pattern noted Signed by: Dr. Mikie Herron M.D. on 11/25/2017 6:49 AM Dictated By: MIKIE MONTOYA MD Electronically Si gned By: MIKIE MONTOYA MD on 11/25/1749 Transcribed By: JACQUI on 49 COPY TO: TRINIDAD GUZMAN MD CT ABDOMEN/PELVIS [place] [address] Patient Name: SYBIL VASQUEZ MR #: [id number] : Age/Sex: 56/M Req #: [id number] Adm Physician: Ordered by: WALE RECIO HEMODIALYSIS CHARGE NURSE Report #: [id number] Location: ER Room/Be d: Procedure: [id number] CT/CT ABDOMEN/PELVIS W Exam Date: 11/20/17 Exam Time: 1950 REPORT STATUS: S igned EXAM: CT Abdomen and Pelvis WITH contrast INDICATION: Lower abdomin al pain and fever COMPARISON: None. TECHNIQUE: Abdomen and pelvis were scann ed utilizing a multidetector helical scanner from the lung base to the pubic s ymphysis after administration of IV contrast. Coronal and sagittal reformation s were obtained. Routine protocol was performed. Scan was performed when durin g portal venous phase. IV CONTRAST: 100 mL of Isovue-300 ORAL CONTRAST: Gastrografin RADIATION DOSE: Total DLP: 87.9 m Gy*cm Estimated effective dose: (DLP x 0.015 x size factor) mSv COMPLICATIONS: None FINDINGS: LINES and TUBES: None. LOWER THORAX: Minimal atelectasis in the right lower lobe. Calcified granuloma in the right middle lobe. Coronary artery calcifications. HEPATOBILIARY: No focal hepatic lesions. No biliary ductal dilation. GALLBLADDER: Multiple 2 to 3 mm calcified gallstones. There is mild wall thickening near the gallbladder neck. No surrounding fluid collections. SPLEEN: No splenome dwayne. PANCREAS: No focal masses or ductal dilatation. ADRENALS: No adrenal nodules KIDNEYS/URETERS: Kidneys enhance symmetrically. No hyd ronephrosis. No cystic or solid mass lesions. No stones. GI TRACT: Ther e is mild wall thickening of the pylorus and first/second portion of the duode num adjacent to the gallbladder, better seen on series 2, images 40-43. There is also diffuse wall thickening with adjacent fat stranding of the ascending colon and few loops of small bowel within the right upper quadrant. To a lesse r extent, there is some wall thickening of the remaining colon. The terminal i leum is associated with nodular thickening. The appendix appears unremarkable though is not well visualized. No bowel dilatation. PELVIC ORGANS/BLADDER: Unremarkable. LYMPH NODES: No lymphadenopathy. VESSELS: Unremarkable. PERITONEUM / RETROPERITONEUM: No free air or fluid. Mild fat stranding with in the gastrohepatic mesenteric fat. BONES: Mild multilevel degenerative changes of the lumbar spine. SOFT TISSUES: Small fat-containing bilateral i nguinal hernias. IMPRESSION: CT findings suggestive of acute pancolitis, which may be inflammatory due to Crohn's disease or infectious. Cholelithiasis with mild inflammatory changes of the gallbladder wall adjacent to the colon may be reactive. No free air in the abdomen or pelvis. Signed by: Dr. Irish Herrera M.D. on 11/20/2017 8:41 PM Dict ated By: IRISH HERRERA MD 40 Transcribed By: JACQUI on 11/20/172040 COPY TO: WALE RECIO NP
[2019-01-05 14:38] VITALS: BP 139/88
[2019-01-05 16:30] VITALS: BP 118/78
[2019-01-05 16:45] VITALS: BP 122/80
[2019-01-05 17:00] VITALS: BP 128/84
[2019-01-05 17:15] VITALS: BP 120/76
[2019-01-05 17:30] VITALS: BP 128/84
--- NOTE | 2019-01-05 17:37 | NUR ---
Pt meets DC criteria. right abdomin assessed for s/s of complication and presence of hematoma. skin warm, dry, no discolor, and no drainage observed. IV removed from left hand. Distal tip appears intact. VS WNL. Pt denies other pain, sob, or need at this time. Family at bedside. Review of discharge paperwork and follow up instructions. verbalized understanding. Pt to wheelchair and transported to front of hospital. Transferred to private vehicle under own strength w/o incident with DC paperwork in hand. - cgf
--- NOTE | 2019-01-07 07:23 | Diagnostic Imaging Report ---
Date and Time: 01/05/2019 Procedure: Tunneled peritoneal drainage catheter placement piped buttonhole machine operator: Dr. Motley Assistants: None Pre-operative diagnosis: Refractory ascites, plan for hospice Post-operative diagnosis: Refractory ascites, plan for hospice Conscious Sedation: Versed 0.5 mg and Fentanyl 75 mcg. The patient's heart rate and pulse oximetry were continuously monitored by the interventional radiology nurse. Blood pressure was monitored at 5 minute intervals. Total intraservice time for sedation: 60 minutes Additional Medications: Lidocaine 1% for local anesthesia Fluoroscopy time: 0.8 minutes Dose-area Product: 730 cGycm2. Contrast used: None Estimated blood loss: 20 cc Specimens: 2 L of ascitic fluid Implants: 16 [place] peritoneal drainage catheter DISCUSSION: Informed consent was obtained and documented in the medical record. The patient was placed in the supine position on the fluoroscopic table. A suitable percutaneous approach to the largest pocket of ascitic fluid in the right upper quadrant of the abdomen was identified and the overlying skin was prepped and draped in the standard sterile fashion. 1% lidocaine was infiltrated into the skin and subcutaneous tissues for local anesthesia. Then under continuous sonographic guidance a 5 [place] needle catheter was advanced into the peritoneal space. A permanent sonographic image was stored. The needle was removed and a 0.0 3 5-in. Amplatz wire was advanced through the catheter and into the peritoneal space. At this point attention was turned to creation of a subcutaneous tunnel extending inferomedially from the peritoneal access site. A suitable catheter exit site was identified and the skin was marked. 1% lidocaine with epinephrine was infiltrated into the skin and subcutaneous tissues from the planned catheter exit site to the peritoneal access site. A small stab incision was made. The catheter was then tunneled from the exit site to the peritoneal access site, placing the retention cuff well into the subcutaneous tunnel. The transperitoneal tract was then serially dilated. A 16 [place] peel-away sheath was then advanced over the wire under fluoroscopic guidance. The wire and obturator of the airway sheath were then removed. The catheter was then advanced through the sheath, which was broken and discarded. Final catheter position was shown in the right upper quadrant/perihepatic space. 2 L of aspirate were obtained. The peritoneal access site was closed with 4-0 Vicryl suture in a deep and subcuticular fashion followed by tissue adhesive. Sterile dressings were applied. The patient tolerated the procedure without immediate complication. FINDINGS: Moderate ascites IMPRESSION: Successful tunneled peritoneal drainage catheter placement in the setting of refractory ascites. Signed by: Dr. Phil Motley M.D. on 01/07/2019 7:19 AM
--- NOTE | 2019-01-11 13:55 | Diagnostic Imaging Report ---
Date and Time: 01/05/2019 Procedure: Tunneled peritoneal drainage catheter placement switchboard operator: Dr. Mtoley Assistants: None Pre-operative diagnosis: Refractory ascites, plan for hospice Post-operative diagnosis: Refractory ascites, plan for hospice Conscious Sedation: Versed 0.5 mg and Fentanyl 75 mcg. The patient's heart rate and pulse oximetry were continuously monitored by the interventional radiology nurse. Blood pressure was monitored at 5 minute intervals. Total intraservice time for sedation: 60 minutes Additional Medications: Lidocaine 1% for local anesthesia Fluoroscopy time: 0.8 minutes Dose-area Product: 730 cGycm2. Contrast used: None Estimated blood loss: 20 cc Specimens: 2 L of ascitic fluid Implants: 16 [place] peritoneal drainage catheter DISCUSSION: Informed consent was obtained and documented in the medical record. The patient was placed in the supine position on the fluoroscopic table. A suitable percutaneous approach to the largest pocket of ascitic fluid in the right upper quadrant of the abdomen was identified and the overlying skin was prepped and draped in the standard sterile fashion. 1% lidocaine was infiltrated into the skin and subcutaneous tissues for local anesthesia. Then under continuous sonographic guidance a 5 [place] needle catheter was advanced into the peritoneal space. A permanent sonographic image was stored. The needle was removed and a 0.0 3 5-in. Amplatz wire was advanced through the catheter and into the peritoneal space. At this point attention was turned to creation of a subcutaneous tunnel extending inferomedially from the peritoneal access site. A suitable catheter exit site was identified and the skin was marked. 1% lidocaine with epinephrine was infiltrated into the skin and subcutaneous tissues from the planned catheter exit site to the peritoneal access site. A small stab incision was made. The catheter was then tunneled from the exit site to the peritoneal access site, placing the retention cuff well into the subcutaneous tunnel. The transperitoneal tract was then serially dilated. A 16 [place] peel-away sheath was then advanced over the wire under fluoroscopic guidance. The wire and obturator of the airway sheath were then removed. The catheter was then advanced through the sheath, which was broken and discarded. Final catheter position was shown in the right upper quadrant/perihepatic space. 2 L of aspirate were obtained. The peritoneal access site was closed with 4-0 Vicryl suture in a deep and subcuticular fashion followed by tissue adhesive. Sterile dressings were applied. The patient tolerated the procedure without immediate complication. FINDINGS: Moderate ascites IMPRESSION: Successful tunneled peritoneal drainage catheter placement in the setting of refractory ascites. Signed by: Dr. Phil Motley M.D. on 01/07/2019 7:19 AM
== END | disposition hospice, home (50) ==
LOC: CATH LAB 12:30 → EDSTATUS 15:00
PROVIDERS: ATTEND Radiology Diagnostic Radiology
DX: K70.31 Alcoholic cirrhosis of liver with ascites (principal); D69.6 Thrombocytopenia, unspecified
CPT/HCPCS: 49418; 76942; C1769 ×2; C1892; J0690; J2001; J2250; J7030